=== PATIENT | male | born 1970 | race Caucasian/White ===

== ENCOUNTER 2024-07-21 09:18 | Emergency (ER) | payer OTHER, SELFPAY ==
[2024-07-21 09:40] VITALS: BP 146/86; PULSE 83; TEMP 36.9; O2SAT 96; BMI 42.8
--- NOTE | 2024-07-21 09:47 | ECG_ITS ---
[facility] Test Date: 2024-07-21 Pat Name: PETROS SANDOVAL Department: Room: - Gender: Male Bag Tester: : 1970 Requested By: [id number] Order Number: [id number] Reading MD: SARA MEDEL Measurements Intervals [place] Rate: 73 P: -67 NE: 142 QRS: -26 QRSD: 96 T: 50 QT: 372 QTc: 398 Interpretive Statements 1220 Rapid atrial rhythm 2440 Incomplete right bundle branch block 7202 Moderate left axis deviation 8102 Low QRS voltage in chest leads 9140 abnormal rhythm ECG Electronically Signed On 07-22-2024 7:01:33 EST by SARA MEDEL
--- NOTE | 2024-07-21 09:50 | CT_ITS ---
[address] [address] Patient Name: PETROS SANDOVAL MRN: [id number] date: 1970 Sex: M Assigned Patient Location: ER Current Patient Location: Accession/Order Number: [id number] Exam Date: 07/21/2024 10:00 Report Date: 07/21/2024 10:34 At the request of: NICHOLE LIMA Procedure: CT chest wo con EXAMINATION: CT chest wo con, CT abdomen pelvis wo con HISTORY: chest wall pain , right upper quadrant pain / tenderness COMPARISON: CT abdomen pelvis 11/30/2021 TECHNIQUE: Axial, Coronal, and Sagittal CT images were obtained without and/or with IV contrast as indicated by examination type. Dose reduction techniques were achieved by using automated exposure control and/or adjustment of mA and/or kV according to patient size and/or use of iterative reconstruction technique. FINDINGS: LUNGS: A few tiny pleural-based nodules, largest is within lateral right upper lobe near the minor fissure, 3 mm. No appreciable infiltrates or significant chronic interstitial changes. PLEURA: No mass or effusion. VASCULATURE: No visible pulmonary arterial thrombus or attenuation. YONATHAN: No mass or adenopathy. MEDIASTINUM: No mass or adenopathy. CARDIAC: No enlargement, pericardial thickening, or pericardial effusion. AORTA: No aneurysm or dissection.. CORONARY ARTERY CALCIFICATIONS: Coronary calcifications are mild. CHEST WALL: No mass or axillary adenopathy. LIVER: No enlargement, atrophy, abnormal density, or significant focal lesion. BILIARY: No dilatation or calcification. PANCREAS: No lesion, fluid collection, ductal dilatation, or atrophy. SPLEEN: No enlargement or focal lesion. ADRENALS: No mass or enlargement. KIDNEYS: No mass, obstruction, or calcification. BOWEL/MESENTERY: No visible mass, obstruction, or bowel wall thickening. Normal appendix. AORTA/VASCULAR: No aneurysm. RETROPERITONEUM: No mass or adenopathy. LYMPH NODES: No adenopathy. URINARY BLADDER: No visible focal wall thickening, lesion, or calculus. PELVIC ORGANS: No visible mass. Pelvic organs appropriate for patient age. ABDOMINAL WALL: No mass or hernia. BONES: No bony lesion or fracture. Multilevel mild degenerative changes of lumbar spine. OTHER: Negative. CT/CT chest wo con IMPRESSION: 1. No acute or suspicious findings within the chest, abdomen, and pelvis to account for patient's symptoms. 2. Degenerative changes of lumbar spine. Electronically authenticated by: ARNOLD BRICEÑO Date: 07/21/2024 10:34
--- NOTE | 2024-07-21 09:50 | CT_ITS ---
[address] [address] Patient Name: PETROS SANDOVAL MRN: [id number] date: 1970 Sex: M Assigned Patient Location: ER Current Patient Location: Accession/Order Number: [id number] Exam Date: 07/21/2024 10:00 Report Date: 07/21/2024 10:34 At the request of: NICHOLE LIMA Procedure: CT abdomen pelvis wo con EXAMINATION: CT chest wo con, CT abdomen pelvis wo con HISTORY: chest wall pain , right upper quadrant pain / tenderness COMPARISON: CT abdomen pelvis 11/30/2021 TECHNIQUE: Axial, Coronal, and Sagittal CT images were obtained without and/or with IV contrast as indicated by examination type. Dose reduction techniques were achieved by using automated exposure control and/or adjustment of mA and/or kV according to patient size and/or use of iterative reconstruction technique. FINDINGS: LUNGS: A few tiny pleural-based nodules, largest is within lateral right upper lobe near the minor fissure, 3 mm. No appreciable infiltrates or significant chronic interstitial changes. PLEURA: No mass or effusion. VASCULATURE: No visible pulmonary arterial thrombus or attenuation. YONATHAN: No mass or adenopathy. MEDIASTINUM: No mass or adenopathy. CARDIAC: No enlargement, pericardial thickening, or pericardial effusion. AORTA: No aneurysm or dissection.. CORONARY ARTERY CALCIFICATIONS: Coronary calcifications are mild. CHEST WALL: No mass or axillary adenopathy. LIVER: No enlargement, atrophy, abnormal density, or significant focal lesion. BILIARY: No dilatation or calcification. PANCREAS: No lesion, fluid collection, ductal dilatation, or atrophy. SPLEEN: No enlargement or focal lesion. ADRENALS: No mass or enlargement. KIDNEYS: No mass, obstruction, or calcification. BOWEL/MESENTERY: No visible mass, obstruction, or bowel wall thickening. Normal appendix. AORTA/VASCULAR: No aneurysm. RETROPERITONEUM: No mass or adenopathy. LYMPH NODES: No adenopathy. URINARY BLADDER: No visible focal wall thickening, lesion, or calculus. PELVIC ORGANS: No visible mass. Pelvic organs appropriate for patient age. ABDOMINAL WALL: No mass or hernia. BONES: No bony lesion or fracture. Multilevel mild degenerative changes of lumbar spine. OTHER: Negative. CT/CT abdomen pelvis wo con IMPRESSION: 1. No acute or suspicious findings within the chest, abdomen, and pelvis to account for patient's symptoms. 2. Degenerative changes of lumbar spine. Electronically authenticated by: ARNOLD BRICEÑO Date: 07/21/2024 10:34
[2024-07-21 10:25] LABS: Basophils Percent Auto 0.4 % (0.2-2.0); Eosinophils Absolute Auto 0.3 10^3/uL (0.0-0.7); Eosinophils Percent Auto 4.1 % (0.9-7.0); Hematocrit 40.5 % (42.0-54.0); Hemoglobin 14.1 g/dL (14.0-18.0); Immature Granulocytes Abs Auto 0.01 10^3/uL (0.00-0.03); Immature Granulocytes Pct Auto 0.1 % (0.0-0.5); Lymphocytes Absolute Auto 1.8 10^3/uL (1.2-3.8); Lymphocytes Percent Auto 25.4 % (20.5-60.0); Mean Corpuscular HGB Conc 34.8 g/dL (29.9-35.2); Mean Corpuscular Hemoglobin 30.9 pg (25.9-34.0); Mean Corpuscular Volume 88.6 fL (80.0-94.0); Mean Platelet Volume 10.3 fL (9.5-13.5); Monocytes Absolute Auto 0.5 10^3/uL (0.3-0.8); Monocytes Percent Auto 7.1 % (1.7-12.0); Neutrophils Absolute Auto 4.4 10^3/uL (1.4-6.5); Neutrophils Percent Auto 62.9 % (43.0-75.0); Platelet Count 247 10^3/uL (150-450); Red Blood Count 4.57 10^6/uL (4.70-6.10); Red Cell Distribution Width 11.8 % (11.0-15.0)
[2024-07-21 10:29] VITALS: BP 132/90; PULSE 80; O2SAT 96
--- NOTE | 2024-07-21 10:32 | ED.ABDPAIN1 ---
HPI - Abdominal Pain General Chief Complaint: Abdominal Pain Stated Complaint: DISCOMFORT ON RIGHT SIDE Time Seen by Provider: 07/21/24 09:47 History of Present Illness HPI narrative: Is coming to us with almost 8 days history of right upper quadrant pain or right chest wall pain ,he mentioned that this pain started almost 8 days ago with no exacerbating factors of fall or trauma. The patient have no fever but he have difficulty breathing whenever he take a deep breath it hurts. He mentioned the pain sometimes gets in certain position and on palpation, he is not able to lay on the right side decreased due to pain The patient also had decreased appetite and he denies any diarrhea or vomiting Related Data Home Medications ?Medication ?Instructions ?Recorded ?Confirmed fenofibrate 150 mg capsule 150 mg PO DAILY 07/21/24 07/21/24 lisinopril 5 mg tablet 5 mg PO DAILY 07/21/24 07/21/24 loratadine 10 mg tablet (Claritin) 10 mg PO DAILY 07/21/24 07/21/24 nortriptyline 25 mg capsule 25 mg PO DAILY 07/21/24 07/21/24 pregabalin 300 mg capsule 300 mg PO Q12H 07/21/24 07/21/24 Previous Rx's ?Medication ?Instructions ?Recorded diclofenac sodium 75 mg 75 mg PO BID PRN pain #14 tabs 07/21/24 tablet,delayed release Allergies Allergy/AdvReac Type Severity Reaction Status Date / Time azithromycin AdvReac Hives Verified 07/21/24 09:40 Review of Systems ROS Status of ROS 10 or more systems reviewed and unremarkable except as noted in history and below PFSH PFSH Social History Little interest or pleasure in doing things: not at all Feeling down, depressed, or hopeless: not at all Exam Narrative Exam Narrative: Nurses notes and vital signs reviewed and patient is not hypoxic. General: Well-appearing and in no apparent distress. Skin: Warm, dry, no pallor noted. No rash. Head: Normocephalic, atraumatic. Neck: Supple, non-tender. Eye: Pupils are equal, round and EOMI. No scleral icterus. Ears, Nose, Mouth, and Throat: TM are clear, no nasal mucosal hypertrophy. Oral mucosa is moist, no posterior oropharynx erythema, uvula is mid-line Cardiovascular: Regular Rate and Rhythm without murmur, gallop or rub. Respiratory: No accessory muscle use or respiratory distress. Lungs are clear to auscultation, no wheezing, rales or rhonchi Chest Wall: There is tenderness upon palpation of the right side of the chest wall Back: No midline thoracic or lumbar vertebral tenderness. No CVA tenderness Musculoskeletal: normal ROM, no calf or popliteal tenderness, no lower extremity edema/swelling GI: There is tenderness palpation on abdomen but mostly at the intervertebral line on the right side just below the rib cage Neurological: A&O x4. No cranial nerve dysfunction observed. No truncal ataxia. Moves all extremities. Sensation intact. Psychiatric: Cooperative and interactive. Normal mood and affect. Constitutional Vital Signs, click to edit/add: Last Vital Signs Temp 98.4 F 07/21/24 09:40 Pulse 80 07/21/24 10:29 Resp 20 07/21/24 10:29 BP 132/90 07/21/24 10:29 Pulse Ox 96 07/21/24 10:29 O2 Del Method Room Air 07/21/24 10:29 Course Vital Signs Vital signs: Vital Signs Temperature 98.4 F 07/21/24 09:40 Pulse Rate 83 07/21/24 09:40 Respiratory Rate 18 07/21/24 09:40 Blood Pressure 146/86 H 07/21/24 09:40 Pulse Oximetry 96 07/21/24 09:40 Oxygen Delivery Method Room Air 07/21/24 09:40 Temperature 98.4 F 07/21/24 09:40 Pulse Rate 80 07/21/24 10:29 Respiratory Rate 20 07/21/24 10:29 Blood Pressure 132/90 07/21/24 10:29 Pulse Oximetry 96 07/21/24 10:29 Oxygen Delivery Method Room Air 07/21/24 10:29 MDM - Abdominal Pain MDM Narrative Medical decision making narrative: The patient CBC and chemistry showed no acute pathology CT of the chest wall as well as the CT of the abdomen showed no acute pathology as initially the concern was due to possible hepatic involvement or upper abdominal involvement due to the fact that the patient have decreased appetite and he is pointing to his right chest wall and right upper although the tenderness was mostly toward the middle of the axillary line on the right side And with the patient significant pain he was provided with Toradol Patient discharged home with Voltaren The patient is to follow up with primary care physician in next 2-3 days or to return to the emergency department should any of the signs or symptoms worsen or new symptoms develop. The patient agrees with the following Diagnosis and Treatment plan and the patient will be discharged home. Lab Data Labs: Lab Results 07/21/24 Range/Units 10:20 WBC 7.0 (4.0-11.0) 10^3/uL RBC 4.57 L (4.70-6.10) 10^6/uL Hgb 14.1 (14.0-18.0) g/dL Hct 40.5 L (42.0-54.0) % MCV 88.6 (80.0-94.0) fL MCH 30.9 (25.9-34.0) pg MCHC 34.8 (29.9-35.2) g/dL RDW 11.8 (11.0-15.0) % Plt Count 247 (150-450) 10^3/uL MPV 10.3 (9.5-13.5) fL Neut % (Auto) 62.9 (43.0-75.0) % Lymph % (Auto) 25.4 (20.5-60.0) % [place] % (Auto) 7.1 (1.7-12.0) % Eos % (Auto) 4.1 (0.9-7.0) % Baso % (Auto) 0.4 (0.2-2.0) % Neut # (Auto) 4.4 (1.4-6.5) 10^3/uL Lymph # (Auto) 1.8 (1.2-3.8) 10^3/uL [place] # (Auto) 0.5 (0.3-0.8) 10^3/uL Eos # (Auto) 0.3 (0.0-0.7) 10^3/uL Baso # (Auto) 0.0 (0.0-0.1) 10^3/uL Abs Immat Gran (auto) 0.01 (0.00-0.03) 10^3/uL Imm/Tot Granulo (auto) 0.1 (0.0-0.5) % PT 10.5 (9.0-11.6) sec INR 0.99 Sodium 144 (136-145) mmol/L Potassium 3.9 (3.5-5.1) mmol/L Chloride 106 (98-107) mmol/L Carbon Dioxide 27.7 (21.0-32.0) mmol/L Anion Gap 14.2 BUN 12.0 (7.0-18.0) mg/dL Creatinine 0.71 (0.70-1.30) mg/dL Est GFR ( Amer) >60 (>=60 mL/min/1.73m^2) Est GFR (Non-Af Amer) >60 (>=60 mL/min/1.73m^2) BUN/Creatinine Ratio 16.9 Glucose 123 H (74-106) mg/dL Calcium 9.0 (8.5-10.1) mg/dL Total Bilirubin 0.5 (0.2-1.0) mg/dL AST 10 L (15-37) U/L ALT 20 (16-63) U/L Alkaline Phosphatase 55 (46-116) U/L Troponin I High Sens 6.6 (4.0-76.1) pg/mL Total Protein 6.7 (6.4-8.2) g/dL Albumin 3.8 (3.4-5.0) g/dL Globulin 2.9 g/dL Albumin/Globulin Ratio 1.3 Lipase 43.0 (16.0-77.0) U/L Discharge Plan Discharge Chief Complaint: Abdominal Pain Clinical Impression: Sprain of chest wall Patient Disposition: Home, Self-Care Time of Disposition Decision: 11:24 Condition: Good Prescriptions / Home Meds: New diclofenac sodium 75 mg tablet,delayed release (DR/EC) 75 mg PO BID PRN (Reason: pain) Qty: 14 0RF No Action nortriptyline 25 mg capsule 25 mg PO DAILY pregabalin 300 mg capsule 300 mg PO Q12H fenofibrate 150 mg capsule 150 mg PO DAILY lisinopril 5 mg tablet 5 mg PO DAILY loratadine [Claritin] 10 mg tablet 10 mg PO DAILY Print Language: Croatian Instructions: Chest Wall Pain (ED) Referrals: Physician,Non-Staff, MD [Primary Care Provider] - 1 week Discharge Date/Time: 07/21/24 11:31
[2024-07-21 10:40] LABS: INR 0.99; Prothrombin Time 10.5 sec (9.0-11.6)
[2024-07-21 10:50] LABS: Alanine Aminotransferase 20 U/L (16-63); Albumin Globulin Ratio 1.3; Albumin Level 3.8 g/dL (3.4-5.0); Alkaline Phosphatase 55 U/L (46-116); Anion Gap 14.2; Aspartate Amino Transferase 10 U/L (15-37); BUN Creatinine Ratio 16.9; Bilirubin Total 0.5 mg/dL (0.2-1.0); Carbon Dioxide 27.7 mmol/L (21.0-32.0); Chloride 106 mmol/L (98-107); Estimated GFR (African America >60 (>=60 mL/min/1.73m^2); Estimated GFR (Non-African Ame >60 (>=60 mL/min/1.73m^2); Globulin 2.9 g/dL; Glucose 123 mg/dL (74-106); Potassium 3.9 mmol/L (3.5-5.1); Sodium 144 mmol/L (136-145); Total Protein 6.7 g/dL (6.4-8.2); Troponin I High Sensitivity 6.6 pg/mL (4.0-76.1)
[2024-07-21] MEDS: KETOROLAC TROMETHAMINE 30 MG/ML VIAL IVP (10:58)
== END 2024-07-21 11:31 | disposition home or self-care (01) ==
PROVIDERS: Emergency Provider Emergency Medicine
DX: S23.8XXA Sprain of other specified parts of thorax, initial encounter (principal); X58.XXXA Exposure to other specified factors, initial encounter; R10.11 Right upper quadrant pain; R07.89 Other chest pain
CPT/HCPCS: 36415; 71250; 74176; 80053; 83690; 84484; 85025; 85610; 93005; 96374; 99285; J1885

== ENCOUNTER 2025-03-20 13:42 | Outpatient (OUT) | payer OTHER, SELFPAY ==
--- NOTE | 2025-03-20 15:08 | PM.CN ---
Consult Note: HPI Data of Consult Patient: new to practice Consult date: 03/20/25 Requesting Physician: Josse Campbell MD Primary Care Provider: Non-Staff Physician, Consult Narrative Reason for consult: low back, bilateral lower extremity pain Narrative: 54yom who presents for evaluation. longstanding history of low back, bilateral lower extremity pain >2 years. previous lumbar mri showed multilevel stenosis, worst at l5-s1. has previously seen a pain management clinic. has completed physical therapy and continues in weekly chiropractic therapy, though this has not made a substantial difference in his low back and leg pain. currently using tylenol, lyrica, diclofenac. denies adverse med side effects. cc:: CC: Josse Campbell MD Review of Systems ROS Status of ROS 10 or more systems reviewed and unremarkable except as noted in history and below PFSH PFSH Social History Little interest or pleasure in doing things: not at all Feeling down, depressed, or hopeless: not at all Meds Home Medications and Allergies Home Medications ?Medication ?Instructions ?Recorded ?Confirmed ?Type diclofenac sodium 75 mg 75 mg PO BID PRN pain #14 tabs 07/21/24 Rx tablet,delayed release fenofibrate 150 mg capsule 150 mg PO DAILY 07/21/24 07/21/24 History lisinopril 5 mg tablet 5 mg PO DAILY 07/21/24 07/21/24 History loratadine 10 mg tablet (Claritin) 10 mg PO DAILY 07/21/24 07/21/24 History nortriptyline 25 mg capsule 25 mg PO DAILY 07/21/24 07/21/24 History pregabalin 300 mg capsule 300 mg PO Q12H 07/21/24 07/21/24 History Allergies Allergy/AdvReac Type Severity Reaction Status Date / Time azithromycin AdvReac Hives Verified 07/21/24 09:40 Exam Narrative Exam Narrative: Psych-alert and oriented x 3. Attentive and appropriate, constitutionally normal, displays normal mood and affect per situation. There are no obvious deficits in memory, reasoning, or intellect.? Skin-no obvious rashes, bruising, erythema noted to the patient's area of pain.? Extremities- extremities are warm with minimal edema and palpable pulses. Lumbar-tenderness to palpation noted in the lumbar spine and paraspinal musculature. Pain is elicited with flexion, extension, and lateral rotation of the lumbar spine. Range of motion is diminished with these motions. Facet loading maneuvers are positive.? Strength-noted to be unremarkable with the exception of decreased strength rated at 4 out of 5 in bilateral quadriceps femoris, anterior tibialis. Sensory-no notable sensory deficits in the bilateral lower extremities to touch or pinprick in all dermatomal distributions with the exception to decreased sensation to the bilateral L4, 5 dermatomal distribution Coordination remains intact.? Gait remains non-antalgic. Assessment and Plan Assessment and Plan (1) Lumbar stenosis with neurogenic claudication: Plan 54yom who presents for assessment. failed conservative measures, as noted. given ongoing symptoms and failure to respond to conservative measures, would like to update lumbar mri without contrast. he is in agreement. meds reviewed, no changes. follow up after imaging.
== END 2025-03-20 13:43 | disposition home or self-care (01) ==
LOC: PM 13:43
PROVIDERS: Visit Provider Anesthesiology
DX: M48.062 Spinal stenosis, lumbar region with neurogenic claudication (principal)
CPT/HCPCS: G0463

== ENCOUNTER 2025-03-23 15:45 | Outpatient (OUT) | payer OTHER, SELFPAY ==
--- NOTE | 2025-03-23 | MR_ITS ---
[address] [address] Patient Name: PETROS SANDOVAL MRN: [id number] date: 1970 Sex: M Assigned Patient Location: MRI Current Patient Location: MRI Accession/Order Number: [id number] Exam Date: 03/23/2025 15:50 Report Date: 03/23/2025 23:49 At the request of: ANGELINE CASTANO MD Procedure: MR lumbar spine wo con MR lumbar spine wo con 03/23/2025 4:25 PM SIGNS AND SYMPTOMS: Chronic low back pain with radiculopathy radiating into lower extremities PROTOCOL: Multiplanar multisequence MR images of the lumbar spine without IV contrast COMPARISON: 02/06/2023 FINDINGS: The bones of the lumbar spine are in anatomic alignment. There is preservation of vertebral body heights. There is mild disc height loss at L1-L2, L2-L3, L3-L4, and L4-5. There is moderate disc height loss at L5-S1. Modic type I endplate edema is noted at L2-L3, L4-5, and L5-S1. Modic type II fatty endplate degenerative changes are noted at L3-L4. The conus terminates at the mid L1 vertebral body level. No epidural or paraspinous fluid collection is appreciated. At T12-L1: There is a normal disc, central canal, and neural foramen. At L1-L2: Facet hypertrophy is present with small bilateral facet effusions. There is no significant spinal canal or neural foraminal narrowing. At L2-L3: There is a circumferential disc bulge with facet hypertrophy. There is mild spinal canal stenosis and mild bilateral neural foraminal narrowing. At L3-L4: There is a circumferential disc bulge with facet hypertrophy. There is mild spinal canal stenosis with mild to moderate left and mild right neural foraminal narrowing. At L4-L5: There is a broad-based disc bulge with facet hypertrophy. There is mild spinal canal stenosis with mild right and moderate left neural foraminal narrowing. At L5-S1: There is a circumferential disc bulge with facet hypertrophy. There is mild spinal canal narrowing with moderate left and severe right neural foraminal narrowing. There is mass effect on the exiting right L5 nerve roots. MR/MR lumbar spine wo con IMPRESSION: At L5-S1: There is a circumferential disc bulge with facet hypertrophy. There is mild spinal canal narrowing with moderate left and severe right neural foraminal narrowing. There is mass effect on the exiting right L5 nerve roots. This is worse when compared to the prior exam. Additional but lesser degrees of degenerative changes are noted as above. Impression dictated by: Srini Melissa M.D. 03/23/2025 11:49 PM Dictation Location: [place] [address] Electronically authenticated by: [id number] Y Date: 03/23/2025 23:49
--- OUTSIDE RECORDS SUMMARY | 2025-03-23 15:48 | XMS_ITS | Encounter Summary ---
Author Organization [facility] Address [address] [facility] [place] [address] Care Team Providers Care Etl Analyst Developer Name Role Phone Nestor Jama DO Primary Care Provider [phone] Encounter Details Date Type Department Care Team (Late Contact Info) Description 05/21/2023 Abstract [facility] [id number] [place] [address] [place] [address] [phone] Mook Cagle MD [address] [place] [address] [place] [address] [phone] Social History Tobacco Use Types Packs/Day Years Used Date Smoking Tobacco: Never Smokeless Tobacco: Never Alcohol Use Standard Drinks/Week Comments Not Currently 0 (1 standard drink = 0.6 oz pur e alcohol) Sex and Gender Information Value Date Recorded Sex Assigned at Male 06/15/2023 9:42 AM EST Legal Sex Male 7:25 PM EDT Gender Identity Male 06/15/2023 9:42 AM EST Sexual Orientation Not on file documented as of this encounter Plan of Treatment Upcoming Encounters Date Type Department Care Team (Late Contact Info) Description 04/21/2025 11:40 AM EDT Office Visit [facility] [address] [facility] [address] [facility] [address] [place] [phone] Mook Cagle MD [address] [address] [place] [address] [place] [address] [phone] documented as of this encounter Visit Diagnoses Not on filedocumented in this encounter Care Teams Etl Analyst Developer Relationship Specialty Start Date End Date Nestor Jama DO PCP - General Family Medicine 02/27/23 documented as of this encounter
--- OUTSIDE RECORDS SUMMARY | 2025-03-23 15:48 | XMS_ITS | Clinical Summary ---
Author Organization [facility] Healthcare Address [address] [place] [address] Care Team Providers Care Decontamination Worker Name Role Phone Nestor Jama Primary Care Provider [phone] Allergies Active Allergy Reactions Criticality Noted Date Comments Erythromycin 06/14/2020 Other Reaction(s): rash Erythromycin Base 02/06/2023 Other Reaction(s): Hives Medications albuterol HFA 90 mcg/act inhaler Inhale 2 puffs every 6 (six) hours if needed. Active lisinopril 5 MG tablet Take 5 mg by mouth. 2 Active loratadine (Claritin) 10 MG tablet Take 10 mg by mouth in the morning. Active fenofibrate (Tricor) 145 MG tablet Take 145 mg by mouth in the morning. Active diclofenac (Voltaren) 75 MG EC tablet Take 75 mg by mouth in the morning and 75 mg before bedtime. Do not crush, chew, or split. . Active Multiple Vitamins-Minera ls (multivitamin with iron-minerals) liquid Take by mouth Daily. Active Calcium Carb-Cholecalci ferol (CALCIUM+D3 PO) Take by mouth 2 (two) times a day. Active penicillin v potassium (Veetid) 500 MG tablet TAKE 1 TABLET BY MOUTH 1 HOUR PRIOR TO PROCEDURE then ONE TABLET EVERY 6 HOURS UNTIL GONE 4 Active HYDROcodone-rosemarie taminophen ([place]) 5-325 MG tablet Take 1 tablet by mouth every 6 (six) hours if needed 4 Active chlorhexidine (Peridex) 0.12 % solution rinse WITH ONE-HALF OUNCE, hold 60 seconds and then let fall out OF mouth EVERY 8 HOURS for 14 days start using the day after procedure 4 Active meloxicam (Mobic) 15 MG tabletIndicatio ns:Osteoarthrit is of spine with radiculopathy, lumbar region Take 1 tablet (15 mg) by mouth Daily 30 tablet 11 5 02/14/20 26 Active nortriptyline (Pamelor) 50 MG capsuleIndicati ons:Osteoarthri tis of spine with radiculopathy, lumbar region Take 2 capsules (100 mg) by mouth at bedtime 60 capsule 2 5 05/14/20 25 Active tiZANidine (Zanaflex) 4 MG tabletIndicatio ns:Osteoarthrit is of spine with radiculopathy, lumbar region Take 1 tablet (4 mg) by mouth at bedtime 30 tablet 11 5 02/14/20 26 Active pregabalin (Lyrica) 300 MG capsuleIndicati ons:Meralgia paraesthetica, left Take 1 capsule (300 mg) by mouth in the morning and 1 capsule (300 mg) before bedtime. 180 capsule 1 5 08/12/19 26 Active Active Problems Problem Noted Date Diagnosed Date Pain in unspecified knee 10/24/2024 Adjustment disorder with depressed mood 06/15/20 23 Exposure to potentially hazardous substance 05/28 Enthesitis 06/15/2023 Morbid obesity 06/15/2023 Myopia 06/15/2023 Presbyopia 06/15/2023 Vitamin D deficiency 06/15/2023 Lumbosacral radiculopathy at L5 03/18/2023 Lateral femoral cutaneous neuropathy, left 03/18 Meralgia paraesthetica, left 02/27/2023 Allergic rhinitis, seasonal 02/25/2023 Sleep apnea 02/25/2023 Overview (02/25/2023): hasn't wore cpap in a couple of years Asthma 02/25/2023 Hearing deficit 02/25/2023 High cholesterol 02/25/2023 Hypertension 02/25/2023 Osteoarthritis 02/25/2023 Chest pain 06/14/2020 Encounters Date Type Department Care Team Description 02/13/2025 10:30 AM EDT Office Visit [facility] [address] [place] [address] Chayo Lance NP Osteoarthritis of spine with radiculopathy, lumbar region (Primary Dx); Meralgia paraesthetica, left 02/13/2025 Bamboo flowsheet [facility] [id number] [facility] [address] Chayo Lance NP 02/13/2025 Travel from Last 3 Months Family History Medical History Relation Name Comments Heart failure Father Heart failure Mother Relation Name Status Comments Father Mother Alive Social History Tobacco Use Types Packs/Day Years [...] AM EST Sexual Orientation Not on file Last Filed Vital Signs Vital Sign Reading Time Taken Comments Blood Pressure 142/80 02/13/2025 10:40 AM EDT Pulse 77 02/27/2023 8:23 AM EDT Temperature - - Respiratory Rate - - Oxygen Saturation - - Inhaled Oxygen Concentration - - Weight 121 kg (265 lb 11.2 oz) 02/13/2025 10:40 AM EDT Height 167.6 cm (5' 6 ) 02/13/2025 10:40 AM EDT Body Mass Index 42.89 02/13/2025 10:40 AM EDT Plan of Treatment Upcoming Encounters Date Type Department Care Team (Late st Contact Info) Description 04/21/2025 11:40 AM EDT Office Visit [facility] [address] [facility] [address] [place] [address] Mook Cagle MD [address] [place] [address] [place] [id number] Insurance Care Teams Decontamination Worker Relationship Specialty Start Date End Date Nestor Jama DO PCP - General Family Medicine 02/27/23
--- OUTSIDE RECORDS SUMMARY | 2025-03-23 15:48 | XMS_ITS | Encounter Summary ---
Author Organization [facility] Address [address] [facility] [place] [address] Care Team Providers Care Oil Mixer Name Role Phone Nestor Jama DO Primary Care Provider [phone] Encounter Details Date Type Department Care Team (Late Contact Info) Description 04/20/2023 Abstract [facility] [address] [place] [address] [place] [phone] Mook Cagle MD [address] [place] [address] [place] [address] [phone] Social History Tobacco Use Types Packs/Day Years [...] Office Visit [facility] [address] [facility] [address] [place] [phone] Mook Cagle MD [address] [place] [address] [place] [address] [phone] documented as of this encounter Visit Diagnoses Not on filedocumented in this encounter Care Teams Oil Mixer Relationship Specialty Start Date End Date Nestor Jama DO PCP - General Family Medicine 02/27/23 documented as of this encounter
--- OUTSIDE RECORDS SUMMARY | 2025-03-23 15:48 | XMS_ITS | Clinical Summary ---
Author Organization [facility] Address [address] [place] [address] Phone Care Team Providers Care Agricultural Appraiser Name Role Phone Unavailable Primary Care Provider Unavailabl e Social History Tobacco Use Types Packs/Day Years Used Date Smoking Tobacco: Never Assessed Sex and Gender Information Value Date Recorded Sex Assigned at Not on file Legal Sex Male 4:38 PM EST Gender Identity Not on file Sexual Orientation Not on file Plan of Treatment Not on file
--- OUTSIDE RECORDS SUMMARY | 2025-03-23 15:48 | XMS_ITS | Clinical Summary ---
Author Organization [facility] [id number] [address] [place] [address] Care Team Providers Care Hospital Tray Service Worker Name Role Phone DejonNestor thomas Nona HYDE Primary Care Provider [phone] Allergies Active Allergy Reactions Criticality Noted Date Comments Erythromycin 06/14/2020 Medications albuterol (PROVENTIL HFA;VENTOLIN HFA) 90 mcg/actuation inhaler Inhale 2 puffs every 6 (six) hours as needed for wheezing. Active loratadine (CLARITIN) 10 mg tablet Take 10 mg by mouth daily. Patient states he takes it a couple times a week Active fenofibrate micronized (LOFIBRA) 134 mg capsule Take 1 capsule (134 mg total) by mouth daily with breakfast. 30 capsule 2020 Active lisinopriL (PRINIVIL,ZESTR IL) 5 mg tablet Take 1 tablet (5 mg total) by mouth daily. 30 tablet 2020 Active Active Problems Problem Noted Date Diagnosed Date Chest pain 06/14/2020 Family History Medical History Relation Name Comments Heart disease Father Depression Mother Relation Name Status Comments Father Mother Social History Tobacco Use Types Packs/Day Years Used Date Smoking Tobacco: Former Smokeless Tobacco: Former Alcohol Use Standard Drinks/Week Comments Yes 0 (1 standard drink = 0.6 oz pur e alcohol) Social Connection and Isolat ion Panel [NHANES] Answer Date Recorded In a typical week, how many times do you talk on the phone with family, friends, or neighbors? More than three times a week 06/14/2020 How often do you get togethe r with friends or relatives? Once a week 06/14/2020 How often do you attend chur or mandaeism services? Patient declined 06/14/2020 Do you belong to any clubs o r organizations such as yarsani groups, unions, fraternal or athletic groups, or school groups? Yes 06/14/2020 How often do you attend meet ings of the clubs or organizations you belong to? Never 06/14/2020 Are you , , di vorced, , never , or living with a partner? 06/14/2020 AUDIT-C Answer Date Recorded Q1: How often do you have a drink containing alc ohol? 2-4 times a month 06/14/2020 Q2: How many drinks containi ng alcohol do you have on a typical day when you are drinking? 1 or 2 06/14/2020 Q3: How often do you have si x or more drinks on one occasion? Never 06/14/2020 Overall Financial Resource Strain (CARDIA) Answe r Date Recorded How hard is it for you to pa y for the very basics like food, housing, medical care, and heating? Not very hard 06/14/2020 PHQ-2 Answer Date Recorded Total Score 0 06/14/2020 [facility] [place] [facility] Occupat ional Health - Occupational Stress Questionnaire Answer Date Recorded Do you feel stress - tense, restless, nervous, or anxious, or unable to sleep at night because your mind is troubled all the time - these days? Not at all 06/14/2020 Exercise Vital Sign Answer Date Recorde d On average, how many days pe r week do you engage in moderate to strenuous exercise (like a brisk walk)? 2 days 06/14/2020 On average, how many minutes do you engage in exercise at this level? 20 min 06/14/2020 PRAPARE - Transportation Answer Date Re corded In the past 12 months, has l ack of transportation kept you from medical appointments or from getting medications? No 05/27 In the past 12 months, has l ack of transportation kept you from meetings, work, or from getting things needed for daily living? No 06/14/2020 Childcare Answer Date Recorded Do problems getting child ca re make it difficult for you to work or study? No 06/14/2020 Employment Answer Date Recorded Do you need help finding a [employer] career [facility] and/or a training program? No 06/14/2020 Purpose - Life Answer Date Recorded Purpose and direction in life Unknown Sex and Gender Information Value Date Recorded Sex Assigned at Not on file Legal Sex Male 11:25 AM EDT Gender Identity Not on file Sexual Orientation Not on file Last Filed Vital Signs Vital Sign Reading Time Taken Comments Blood Pressure 136/94 06/15/2020 3:41 PM EST Pulse 81 06/15/2020 3:41 PM EST Temperature 36.9 C (98.5 F) 06/15/2020 3:41 PM EST Respiratory Rate 16 06/15/2020 3:41 PM EST Oxygen Saturation 95% 06/15/2020 3:41 PM EST Inhaled Oxygen Concentration - - Weight 120.2 kg (265 lb) 06/14/2020 8:30 PM EST Height 165.1 cm (5' 5 ) 06/14/2020 8:30 PM EST Body Mass Index 44.1 06/14/2020 8:30 PM EST Plan of Treatment Health Maintenance Due Date Last Done Comments Depression Screening 1981 Tobacco Screening 1981 Adult BMI Screening 1987 DTaP,Tdap and Td Vaccines (1 - Tdap) 1988 Zoster (Shingles) Vaccine (1 of 2) 2019 Influenza Vaccine 03/27/2025 Medical Devices Not on file Insurance Advance Directives * Full Code (Latest Code Status on File) Date Activated Date Inactivated Comments 06/15/2020 7:51 AM 06/15/2020 6:40 PM Care Teams Hospital Tray Service Worker Relationship Specialty Start Date End Date Nestor Jama DO [address] [place] [address] PCP - General Family Medicine 06/14/20
== END 2025-03-23 15:46 | disposition home or self-care (01) ==
LOC: MRI 15:45
PROVIDERS: PCP Family Medicine; Visit Provider Anesthesiology
DX: M48.062 Spinal stenosis, lumbar region with neurogenic claudication (principal); M51.369 Other intervertebral disc degeneration, lumbar region without mention of lumbar back pain or lower extremity pain
CPT/HCPCS: 72148

== ENCOUNTER 2025-07-03 10:39 | Emergency (ER) | payer OTHER, SELFPAY ==
--- OUTSIDE RECORDS SUMMARY | 2025-07-03 05:25 | XMS_ITS | Continuity of Care Document ---
Author Organization [facility] Address [address] [place] [address] Phone Care Team Providers Care Blueprint Reader Name Role Phone Nestor Jama DO Primary Care Provider Rachna Eldridge APRN Attending Provider Gini Sanchez APRN Attending Provider NON STAFF Primary Care Provider Unavailabl e Care Teams Patient Care Team Team Status: Active Member Role/Relationship Status Dates NON STAFF Primary Care Provider Active Visit Care Team Team Status: Inactive Member Role/Relationship Status Dates Nestor Jama DO Primary Care Provider Active Sta rt: June 26, 2025 End: June 26, 2025Parima Eldridge APRN SUCTION WORKER-CAttending Provider ActiveStart: June 26, 2025 End: June 26, 2025 Visit Care Team Team Status: Inactive Member Role/Relationship Status Dates ERICA Molina RN SUCTION WORKER-C Attending Provider Active Start: June 26, 2025 End: June 26, 2025 Patient Care Team Team Status: Inactive Member Role/Relationship Status Dates Gini Sanchez APRN Attending Provider Active S tart: July 03, 2025 End: July 03, 2025NON STAFFPrimary Care ProviderActiveStart: July 03, 2025 End: July 03, 2025 Chief Complaint and Reason for Visit Chief Complaint Admit Date Left hand middle finger swelling, rednes s June 26, 2025 4:06pm left hand infection July 03, 2025 9 :17am Reason for Visit Admit Date Abscess of finger of left hand June 26, 2025 4:06pm Allergies, Adverse Reactions, Alerts Allergen Type Severity Reaction Last Updated Verified Status erythromycin base Allergy Unknown Hives July 03, 2025 9:3 3am Yes Active Social History Smoking Status Status Start Date End Date Date of Observa tion Never smoked tobacco (finding) March 05, 2018 2:04pm Observation Status Observation Response Date of Response Legal Sex [facility] (finding) [facility] 1969 Family History Relationship Condition Age at Onset Recorded Date/T khushi father Family history of colon cancer Unknown Malignant neoplasmUnknownDeceasedUnknown Problems Active Problems Problem Diagnosis/Recorded Date Onset Date Stat Family history of colon cancer July 25, 2024 1:3 7pm Unknown Active Influenza A September 19, 2024 11:06am Unknown Active Hypertriglyceridemia July 25, 2024 1:37pm Unknow n Active Indigestion July 25, 2024 1:37pm Unknown A ctive Seasonal allergies July 25, 2024 1:37pm Unknown Active Hyperglycemia July 25, 2024 1:37pm Unknown Active Hyperlipidemia July 25, 2024 1:37pm Unknown Active Degenerative lumbar disc July 25, 2024 1:37pm Un known Active Anxiety and depression July 25, 2024 1:37pm Unkn own Active Right flank pain July 26, 2024 9:13am Unknown Active Right-sided chest wall pain July 26, 2024 9:19am Unknown Active Hypertension July 25, 2024 1:37pm Unknown A ctive Vitamin D deficiency July 25, 2024 1:37pm Unknow n Active Obesity July 25, 2024 1:37pm Unknown A ctive Asthma July 25, 2024 1:37pm Unknown A ctive Medications Medication Status Dose Units Route Directions Qty Days Refills S tart Date Stop Date End Date Reason(s) Instructions Adherence Ipratropium-Albuterol 0.5 mg -3 mg(2.5 mg base)/3 mL solution for nebulization Active 0 .ROUTE.NWVAVDL9040Bcsdnlsr 2024 12:04pmInfluenza due to influenza virus, type A, humanINHALE 3ml via NEBULIZER EVERY 4 TO 6 HOURS NEEDED for SHORTNESS OF BREATH and FOR WHEEZINGComplies with drug therapyFenofibrate Micronized 134 mg rvmcujgLorvkyilytye3DOEXXGqvmcGrmbyyge 30th, 2024 12:00amJuly 26, 2024 9:39amFreeTextSi capsule with a meal Orally Once a day; Note: Source Status: Taking; Provider: Wiley Baez RLisinopril 5 mg mwlltqRknxjmyjpysr8FFPROWjmbr July 25, 2024 12:00amDe2023 9:39amFreeTextSi tablet Orally Once a day; Note: Source Status: Taking; Refills: 1; Qty: 90 Tablet; Pr ovider: Wiley Baez RAlbuterol Sulfate 90 mcg/actuation HFA aerosol inhalerActive INHALATIONJuly 25, 2024 12:00amFreeTextSi puff Inhalation every 4 hrs prn; Note: Source Status: Taking; Refills: 3; Provider: Damaris Reich ( )Complies with drug therapyNortriptyline 25 mg odxufgrMrqxos39UDDD Daily at bedtimeJuly 26, 2024 12:00amComplies with drug therapyLoratadine (Allergy Relief (Loratadine)) 10 mg koetmtFciupm40AURBAxfynIywontux 31st, 2024 12:00amComplies with drug therapyPregabalin (Lyrica) 300 mg xytvnedGchblu012QXUB Twice dailyJuly 26, 2024 12:00amComplies with drug therapyFenofibrate Micronized 134 mg zowudusOmbepu268UXDUQatplVurfavkg 31st, 2024 9:39amComplies with drug therapyLisinopril 5 mg jbvjhhRajsvyzeeylp5OVJYAukjzImgtadug 31st, 2024 9:39amJune 26, 2025 4:21pmOseltamivir (Tamiflu) 75 mg acqmrsbXhroskgashmk18 MGPOTwice xjlcc1866Rsbfzqao2024 12:00amDemb2024 4:09pm Ondansetron 4 mg tablet,ftvlenqjfsnvriSuvdyclvkzpl6KAIWFhhot 8 hours as needed for nausea and pnsmhahm532Jrmjhmwd2024 12:00amDe2024 4:09pm Prednisone 20 mg stfkiqEdnywncbnneo45GHNPNctjo1028Jvdolzya 2024 12:00am June 26, 2025 4:09pmIpratropium-Albuterol 0.5 mg-3 mg(2.5 mg base)/3 mL solution for mhbjxrfgmkrnCokabeamgyct2GIDKWYBQKTAJXFGRF 4-6 HOURS as needed for shortness of breath or civoesjx377Lvemxkjr 2024 12:00amFebruary 2024 12:04pmInfluenza due to influenza virus, type A, humanTizanidine 4 mg tablet Lvpvlz2EIIEMroii at bedtimeJune 26, 2025 12:00amComplies with drug therapy Sulfamethoxazole-Trimethoprim (Bactrim Ds) 800-160 mg atwtswUplqpp0MGTESZqvyq 12 siabn790MhnudvtiJune 26, 2025 12:00amComplies with drug therapy Procedures Procedure Date Performed Status Superficial Wound Culture June 26, 2025 com pleted Relevant Diagnostic Tests and/or Laboratory Data Microbiology Results Procedure Source Result Collection Date/Time Result Date/Time Result Comment Performing Site Superficial Wound Culture Finger,Left Middle, Abscess Staphylococcus aureus June 26, 2025 5:00pm June 29, 2025 10:28am [facility] [id number] [address] [place] [id number] Vital Signs Vital Reading Result Reference Range Collection Date/Time Height 66 [in_i] June 26, 2025 4:91iwBbrptx498.01 kgJune 26, 2025 4:14pmBody Kthampdtwvv20.5 [degF]97.6-99.0June 26, 2025 4:14pmHeart Wuyq617 /wlt57-017 June 26, 2025 4:14pmRespiratory rate18 /lta76-82SjxbsjfbJune 26, 2025 4:14pm Oxygen saturation by Pulse nejkguwd02 %95-100June 26, 2025 4:14pmBP Govwahcr150 mm[Hg]100-140June 26, 2025 4:14pmBP Wfectvvzv93 mm[Hg]60-100 June 26, 2025 4:14pmBMI (Body Mass Index)43.4 kg/s7YkkplhlwJune 26, 2025 4:56akBddftt70 [in_i]July 03, 2025 9:04llHqrpvo052.01 kgJuly 03, 2025 9:36amBody Isimxlmvvoy40.9 [degF]97.6-99.0ce2024 9:36amHeart Rate76 /nmg08-775VjscpydkJuly 03, 2025 9:36amRespiratory rate18 /fjo83-07YspispunJuly 03, 2025 9:36amOxygen saturation by Pulse ndefwnie41 %95-100July 03, 2025 9:36amBP Bokylwmr671 mm[Hg]100-140July 03, 2025 9:36amBP Irftiuxdc78 mm[Hg] 60-100Decemb2024 9:36amBMI (Body Mass Index)43.4 kg/g3OfxfmsuoJuly 03, 2025 9:36am Advance Directives Advance Directive Response Recorded Date/ Time Advance Directives No December 14 7:31am Insurance Providers Guarantor Henrry Gonzalez Address [address] [place] [address]Mugezma Info.Home Phone: Coverage Status Update:2024 Payer Group Member ID Coverage Type Subscriber Relationship to Subscriber Effective Date Expiration Date [facility] [employer] [id number] [address] [place] Id: [id number] [address] [place] [address] Home Phone: Email: [email or web address] Encounters Encounter Location(s) Arrival/Admit Date Discharge/Departure Date Discharge/Departure Disposition Provider(s) Departed Physician/ Provider Office Visit -[facility] June 26, 2025 4:06pm June 26, 2025 5:02pm Discharged to home care or self care (routine discharge) Rachna Eldridge APRN Departed Referred -[facility] June 26, 2025 5:00pm June 26, 2025 5:01pm Discharged to home care or self care (routine discharge) Rachna Eldridge APRN Departed Physician/ Provider Office Visit -[facility] [place] July 03, 2025 9:17am July 03, 2025 10:21am Discharged to home care or self care (routine discharge) Evelin Nunez APRN Recent Diagnosis Onset Date Admit Date Abscess of finger of left hand Unknown D ecember 2024 4:06pm Assessments Diagnosis Onset Date Resolution Status Admit Date Abscess of finger of left [facility] 20[facility] 4:06pm Plan of Treatment Author Rachna Eldridge [facility] 20[facility] 6:36pmUsing the bevel of an 18 gauge needle, small puncture made in center of abscess. Large amount of purulent drainage expressed from abscess. Wound dressed with xeroform dressing, telfa pad, and wrapped with coban. Start bactrim as ordered. Advised to use warm, moist compresses to area 4-5x a day for at least 15 minutes. Future Tests Future scheduled test information is unavailable Pending Tests Pending diagnostic test information is unavailable Future Visits Future appointment information is unavailable Future Procedures Future procedure information is unavailable Future Medications Future medication information is unavailable Patient Instructions Patient instructions are unavailable
[2025-07-03 10:42] VITALS: BP 154/97; PULSE 76; TEMP 36.6; O2SAT 97; BMI 42.0
--- NOTE | 2025-07-03 11:11 | XR_ITS ---
The [address] [address] Patient Name: PETROS SANDOVAL MRN: [id number] date: 1970 Sex: M Assigned Patient Location: ER Current Patient Location: ED.MAIN Accession/Order Number: [id number] Exam Date: 07/03/2025 11:22 Report Date: 07/03/2025 11:39 At the request of: NICHOLE LIMA MD Procedure: XR finger LT min 2V LEFT FOURTH FINGER - 3 views COMPARISON: None CLINICAL DATA: Erythema and lump at the middle finger for the past 2 weeks. No injury. AP, lateral and oblique views were obtained. No fracture, dislocation or bony destruction is noted. There is mild soft tissue swelling at the base of the finger that extends over the dorsum of the hand. No radiopaque foreign bodies or subcutaneous air are noted. XR/XR finger LT min 2V IMPRESSION: NO ACUTE BONY FINDINGS Impression dictated by: Karmen Castillo M.D. 07/03/2025 11:39 AM Dictation Location: [place] [address] Electronically authenticated by: [id number] Y Date: 07/03/2025 11:39
--- OUTSIDE RECORDS SUMMARY | 2025-07-03 11:21 | XMS_ITS | CCD ---
Author Organization [facility] Care Team Providers Care Auger Machine Offbearer Name Role Phone MIGUEL BUCK Unavailable Unavailable MIGUEL BUCK Unavailable Unavailable CHRISTAL, DR EDITH Weldon Attending Unavailjean claude SIEGEL, DR EDITH Weldon Admitting Unavailabl e CHRISTAL, DR EDITH Weldon Consulting Unavailjean claude BUCK, DR RIVERA Primary Care Unavailable MELQUIADES GOLDMAN Consulting Unavailable Luis Morgan Consulting Unavailable CHRISTAL, DR EDITH Weldon Attending Unavailjean claude SIEGEL, DR EDITH Weldon Admitting Unavailjean claude e CHRISTAL, DR EDITH Weldon Consulting Unavailjean claude BUCK, DR RIVERA Primary Care Unavailable Corinne Song Consulting Unavailable CORINNE BORWN JR Attending Unavailable CORINNE BROWN JR Admitting Unavailable HEBER, DR RIVERA Primary Care Unavailable KEYANNA, DR RANOLD Castellano Consulting Unavailable CORINNE BROWN JR Consulting Unavailable CHRISTAL, DR EDITH Weldon Attending Unavailabl e CHRISTAL, DR EDITH Weldon Admitting Unavailabl e HEBER, DR RIVERA Primary Care Unavailable CHRISTAL, DR EDITH Weldon Consulting Unavailjean claude BRICEÑO, DR ARNOLD Castellano Consulting Unavailable Miguel Buck Unavailable Phil Schultz Unavailable Corinne Brown Unavailable Landry Beyer Unavailable MIGUEL BUCK Primary Care Physician Gini Galindo Admitting Unavailable MIGUEL BUCK Referring Unavailable Gini Galindo Attending Unavailable RACHANA OCAMPO Referring Unavailable Gini Galindo Admitting Unavailable Gini Galindo Attending Unavailable Aubrey Ruiz Attending Unavailable Aubrey Ruiz Referring Unavailable Aubrey Ruiz Admitting Unavailable Gini Galindo Admitting Unavailable KUNS, MIGUEL Referring Unavailable Gini Galindo Attending Unavailable Gini aGlindo Admitting Unavailable MIGUEL BUCK Referring Unavailable Gini Galindo Attending Unavailable Rachana Ocampo Unavailable Kuns, DO Miguel Primary Care Provider MD Rachana Ocampo Attending Provider [phone] Kuns DO, Miguel Primary Care Provider [phone] Kuns DO, Miguel Attending Provider Kuns, Miguel Attending Unavailable Kuns, Miguel Primary Care Unavailable Kuns, Miguel Admitting Unavailable Kuns DO, Miguel R Primary Care Provider ANAIS CAGLE Attending Unavailable HUBER LANCE Attending Unavailable Shannan ROMAN, Josse Sims Attending Unavailable Allergies Allergy ClassificationReported Allergen(s)Allergy TypeDate of OnsetReaction(s) Facility (9 sources)ErythromycinDrug Helhtcr08-40-6306OqcwpJkd [facility] Repository (20 sources)Erythromycin; Translations: [erythromycin]Drug Qhumunn42-42-1043 Unknown, [facility] (20 sources)Seasonal allergyPropensity to adverse reactionsSt. [facility] [place] Other (1 source)ErythromycinDrug Clijbtw49-75-3002TwvscwiyjKing'S Daughters [facility] [place] Repository Medications Current Medications MedicationDrug Class(es)DatesSig (Normalized)Sig (Original)acetaminophen 500 mg oral tablet (5 sources)Start: 74-07-8367lvcd 2 tablets by mouth every six hours as needed for painTylenol 500 mg Tab 1,000 mg = 2 tab(s), Oral, q6hr, PRN as needed for pain, Refills(s) 0 Start Date: 04/01/16 Status: Orderedacetaminophen 325 mg / HYDROcodone bitartrate 5 mg oral tablet (11 sources)Opioid AgonistStart: 86-05-5666vmro 1 tablet by mouth every six hours as neededHYDROcodone-acetaminophen ([place]) 5-325 MG tablet Take 1 tablet by mouth every 6 (six) hours if needed 09/07/2023 ActiveStart: 04-02-2016 acetaminophen-hydrocodone 325 mg-5 mg oral tablet 1 tab(s), Oral, q4hr Pain, 30 tab(s), Refill(s) 0Start Date: 04/02/16 Status: Pgpecsaieu193712 200 actuat albuterol 0.09 mg/actuat metered dose inhaler (9 sources)beta2-Adrenergic AgonistStart: 16-78-6935ojwn 1 puff(s) by inhalation every four hours as neededAlbuterol Sulfate 90 mcg/actuation HFA aerosol inhaler Active INHALATION July 25, 2024 12:00am FreeTextSi puff Inhalation every 4 hrs prn; Note: Source Status: Taking; Refills: 3; Provider: Damaris Reich ( )take 2 puff(s) by inhalation every six hours albuterol HFA 90 mcg/act inhaler Inhale 2 puffs every 6 (six) hours if needed. Activealbuterol 0.833 mg/ml / ipratropium bromide 0.167 mg/ml inhalation solution (1 source)Anticholinergic, beta2-Adrenergic AgonistStart: 52-82-8348pbks 1 mL by inhalation every four to six hours as needed for wheezingIpratropium-Albuterol 0.5 mg-3 mg(2.5 mg base)/3 mL solution for nebulization Active 3 ML INHALATION EVERY 4-6 HOURS as needed for shortness of breath or wheezing September 19, 2024 12:00amAlbuterol 90 MCG/ACT (20 sources)take 1 puff(s) by inhalation every four hours as neededAlbuterol 90 MCG/ACT 1 puff Inhalation every 4 hrs prn Activebaclofen 10 mg oral tablet (14 sources)gamma-Aminobutyric Acid-ergic AgonistStart: 22-80-5523cvwm 1 tablet by mouth every twelve hoursBaclofen 10 MG 1 tablet as needed Orally Twice a day for 30 days Oct, ActiveCalcium Carb-Cholecalciferol (CALCIUM+D3 PO) (7 sources)Calcium Carb-Cholecalciferol (CALCIUM+D3 PO) Take by mouth 2 (two) times a day. Activecetirizine hydrochloride 10 mg oral tablet (5 sources)Histamine-1 Receptor Antagonisttake 1 tablet by mouth once daily Cetirizine HCl 10 MG 1 tablet Orally Once a day Activechlorhexidine gluconate 1.2 mg/ml mouthwash (7 sources)Start: 84-51-2194uzqruklpmlmkb (Peridex) 0.12 % solution rinse WITH ONE-HALF OUNCE, hold 60 seconds and then let fall out OF mouth EVERY 8 HOURS for 14 days start using the day after procedure 09/07/2023 Activediclofenac potassium 25 mg oral tablet (20 sources)Nonsteroidal Anti-inflammatory DrugStart: 67-13-6253dxfi 2 tablets by mouth twice daily at mealtimeDiclofenac Potassium 25 MG 2 tablets with food or milk Orally Twice a day for 30 day(s) Jan, Activetake 1 tablet by mouth in the morningdiclofenac (Voltaren) 75 MG EC tablet Take 75 mg by mouth in the morning and 75 mg before bedtime. Do not crush, chew, or split. . Active fenofibrate 134 mg oral capsule (20 sources)Peroxisome Proliferator Receptor alpha AgonistStart: 07-25-2024 End: 89-68-6745ccgk 1 capsule by mouth once dailyFenofibrate Micronized 134 mg capsule Active 134 MG PO Daily July 26, 2024 9:39amtake 1 tablet by mouth in the morningfenofibrate (Tricor) 145 MG tablet Take 145 mg by mouth in the morning. Activetake 1 capsule by mouth every twenty-four hoursFenofibrate 134 MG 1 capsule with a meal Orally Once a day Activegabapentin 300 mg oral capsule (4 sources)Anti-epileptic AgentStart: 08-22-2022 End: 31-21-5260bhmx 3 capsules by mouth three times dailygabapentin 300 mg Cap 900 mg = 3 cap(s), Oral, TID, X 90 day(s), # 810 cap(s), Refills(s) 0, Pharmacy: [id number], 165, cm, 08/22/22 8:07:00 EST, Height/Length Dosing, 122.5, kg, 06/25/22 13:15:00 EST, Weight Dosing Start Date: 08/22/22 Stop Date: 11/20/22 Status: OrderedStart: 06-25-2022 End: 15-12-9925ucln 3 capsules by mouth three times dailygabapentin 300 mg Cap 900 mg = 3 cap(s), Oral, TID, X 30 day(s), # 270 cap(s), Refills(s) 0, Pharmacy: [facility], 165, cm, 06/25/22 13:15:00 EST, Height/Length Dosing, 122.5, kg, 06/25/22 13:15:00 EST, Weight Dosing Start Date: 06/25/22 Stop Date: 07/25/22 Status: OrderedStart: 05-16-2022 End: 43-59-8937rhse 2 capsules by mouth three times dailygabapentin 300 mg Cap 600 mg = 2 cap(s), Oral, TID, X 30 day(s), # 180 cap(s), Refills(s) 0, Pharmacy: [id number], 165, cm, 05/16/22 12:39:00 EDT, Height/Length Dosing, 124, kg, 05/16/22 12:39:00 EDT, Weight Dosing Start Date: 05/16/22 Stop Date: 06/15/22 Status: OrderedIbuprofen (11 sources)Nonsteroidal Anti-inflammatory DrugStart: 37-61-3079cwwmvnfzp Refills(s) 0 Start Date: 05/16/22 Status: Orderedtake 2 tablets by mouth three times daily at mealtime as neededIbuprofen 200 MG 2 tablets with food or milk as needed Orally Three times a day Activelisinopril 5 mg oral tablet (20 sources)Angiotensin Converting Enzyme InhibitorStart: 03-24-2022 End: 28-84-1391svyqpstogt 5 MG tablet Take 5 mg by mouth. 03/24/2022 Active loratadine 10 mg oral tablet (14 sources)Start: 22-59-7831frfr 1 tablet by mouth once dailyLoratadine (Allergy Relief (Loratadine)) 10 mg tablet Active 10 MG PO Daily July 26, 2024 12:00amStart: 44-35-3975lirf 1 capsule by mouth once daily as needed loratadine 10 mg oral capsule 10 mg = 1 cap(s), Oral, Daily, PRN Allergy symptoms, Refills(s) 0 Start Date: 03/06/16 Status: Orderedmeloxicam 15 mg oral tablet (1 source)Nonsteroidal Anti-inflammatory DrugStart: 02-13-2025 End: 20-01-3421oyid 1 tablet by mouth once dailymeloxicam (Mobic) 15 MG tablet Indications: Osteoarthritis of spine with radiculopathy, lumbar region Take 1 tablet (15 mg) by mouth Daily 30 tablet 11 02/13/2025 02/13/2026 Active Methocarbamol (4 sources)Muscle RelaxantRobaxin ActivemethylPREDNISolone 4 mg oral tablet (20 sources)CorticosteroidStart: 20-10-3854hfvi 1 dose by mouth once dailyMedrol 4 MG as directed Orally Once a day for 6 days Please discontinue NSAID's while taking the Medrol Dose shannan Dec, ActiveStart: 88-94-9091Bols-Medrol 80 mg Dec, 80 mgMedrol 4 MG as directed Orally Once a day Activemontelukast 10 mg oral tablet (20 sources)Leukotriene Receptor Antagonisttake 1 tablet by mouth every twenty- four hoursMontelukast Sodium 10 MG 1 tablet Orally Once a day ActiveMultiple Vitamins-Minerals (multivitamin with iron-minerals) liquid (7 sources)Multiple Vitamins-Minerals (multivitamin with iron-minerals) liquid Take by mouth Daily. Activenortriptyline 50 mg oral capsule (12 sources)Tricyclic AntidepressantStart: 02-13-2025 End: 24-96-2295pttu 2 capsules by mouth at bedtimenortriptyline (Pamelor) 50 MG capsule Indications: Osteoarthritis of spine with radiculopathy, lumbar region Take 2 capsules (100 mg) by mouth at bedtime 60 capsule 2 02/13/2025 05/14/2025 ActiveStart: 10-24-2024 End: 65-95-7634uupg 1 capsule by mouth at bedtimenortriptyline (Pamelor) 50 MG capsule Indications: Meralgia paraesthetica, left Take 1 capsule (50 mg) by mouth at bedtime 30 capsule 2 10/24/2024 02/13/2025 Discontinued (Reorder)Start: 12-14-2023 End: 73-56-1490uayf 1 capsule by mouth at bedtimenortriptyline (Pamelor) 25 MG capsule Indications: Meralgia paraesthetica, left Take 1 capsule (25 mg) by mouth at bedtime 30 capsule 11 12/14/2023 10/24/2024 Discontinued (Reorder) ondansetron 4 mg disintegrating oral tablet (6 sources)Serotonin-3 Receptor AntagonistStart: 80-04-9557pyld 1 tablet by mouth every eight hours as needed for nausea and vomitingOndansetron 4 mg tablet,disintegrating Active 4 MG PO Every 8 hours as needed for nausea and vomiting 7 September 19, 2024 12:00amStart: 57-85-9286dprd 1 tablet by mouth every six hours as neededZofran 4 MG 1 tablet Orally Q6H PRN for 30 day(s) May, Activeoseltamivir 75 mg oral capsule (1 source)Neuraminidase InhibitorStart: 99-48-5519pyey 1 capsule by mouth twice dailyOseltamivir (Tamiflu) 75 mg capsule Active 75 MG PO Twice daily 10 September 19, 2024 12:00ampenicillin v potassium 500 mg oral tablet (7 sources)Start: 33-52-2162ydhh 1 tablet by mouth every hour, then take 1 tablet by mouth every six hourspenicillin v potassium (Veetid) 500 MG tablet TAKE 1 TABLET BY MOUTH 1 HOUR PRIOR TO PROCEDURE thenONE TABLET EVERY 6 HOURS UNTIL GONE 09/07/2023 ActivepredniSONE 20 mg oral tablet (4 sources)Start: 67-63-9374uwtg 2 tablets by mouth once dailyPrednisone 20 mg tablet Active 40 MG PO Daily 10 September 19, 2024 12:00amStart: 12-05-2021 predniSONE 20 MG 1 tablet Orally TID X 3 DAYS, BID X 3 DAYS, QD X 3 DAYS November, ActivetiZANidine 4 mg oral tablet (2 sources)Central alpha-2 Adrenergic AgonistStart: 02-13-2025 End: 10-98-8959qhkj 1 tablet by mouth at bedtimetiZANidine (Zanaflex) 4 MG tablet Indications: Osteoarthritis of spine with radiculopathy, lumbar region Take 1 tablet (4 mg) by mouth at bedtime 30 tablet 11 02/13/2025 02/13/2026 ActiveTylenol Extra Strength 500 MG (8 sources)take 1 tablet by mouth every six hours as neededTylenol Extra Strength 500 MG 1 tablet as needed Orally every 6 hrs ActiveVentolin HFA 90 mcg/inh Aerosol (5 sources)Start: 57-82-7820nhbb 1 puff(s) by inhalation once daily for wheezing Ventolin HFA 90 mcg/inh Aerosol 1 puff(s), Inhalation, Daily for wheezing, Refill(s) 0 Start Date: 03/06/16 Status: Ordered Completed/Discontinued Medications MedicationDrug Class(es)DatesSig (Normalized)Sig (Original)acetaminophen 325 mg / oxyCODONE hydrochloride 5 mg oral tablet (15 sources)Opioid AgonistStart: 14-40-6364hedz 1 tablet by mouth every six hours as neededPercocet 5-325 MG 1 tablet as needed Orally every 6 hrs PRN PRN November, Not-TakingStart: 81-81-7951lkgc 1 tablet by mouth every six hours as neededPercocet 5-325 MG 1 tablet as needed Orally every 6 hrs PRN PRN November, Activeamoxicillin 875 mg / clavulanate 125 mg oral tablet (4 sources)Penicillin-class AntibacterialStart: 32-76-7473tuxx 1 tablet by mouth every twelve hoursAmoxicillin-Pot Clavulanate 875-125 MG 1 tablet Orally every 12 hrs for 10 day(s) Jun, Not-Takingdicyclomine hydrochloride 20 mg oral tablet (4 sources)AnticholinergicStart: 87-93-8176ihgu 1 tablet by mouth every twelve hoursDicyclomine HCl 20 MG 1 tablet Orally BID for 30 day(s) Jul, Not-Takingpregabalin 300 mg oral capsule (12 sources)Start: 03-10-2024 End: 97-98-0562aywl 1 capsule by mouth twice daily at bedtimepregabalin (Lyrica) 300 MG capsule Indications: Meralgia paraesthetica, left TAKE 1 CAPSULE BY MOUTH TWICE DAILY (IN THE MORNING and BEFORE bedtime) 180 capsule 12/13/2024 02/13/2025 Discontinued (Reorder)Triamcinolone (19 sources)CorticosteroidStart: 18-68-7538IDNRZVW - 10 mg Dec, 10 mg Problems Active Problems Problem ClassificationProblemDateDocumented DateEpisodic/ChronicAbdominal pain (20 sources)Left lower quadrant pain; Translations: [Unspecified abdominal pain] Onset: 05-14-2021 Resolved: 35-53-1337AlidbabpTpzkcsgxap disorders (7 sources)Adjustment disorder with depressed mood; Translations: [Adjustment disorder with depressed mood]Onset: 601485-49-4803Fozybjf Administrative/social admission (9 sources)Dietary management surveillance; Translations: [Dietary counseling and surveillance]EpisodicAnxiety disorders (20 sources)Anxiety; Translations: [Anxiety disorder, unspecified]07-25-2024 ChronicAsthma (20 sources)Unspecified asthma, uncomplicated; Translations: [Asthma]Onset: 266588-48-0595IqtdxjcHeqlebgs atherosclerosis and other heart disease (1 source)Coronary atherosclerosis and other heart diseaseOnset: 03-01-2018 Diabetes mellitus without complication (20 sources)Hyperglycemia; Translations: [Hyperglycemia, unspecified]07-25-2024 EpisodicDisorders of lipid metabolism (20 sources)Hyperlipidemia; Translations: [Hyperlipidemia, unspecified]Onset: 05-28-2021 Resolved: 43-62-8872VrxhbxtTvzirtukc hypertension (20 sources)Elevated blood pressure; Translations: [Essential (primary) hypertension]Onset: 018875-05-7478JoufrboNzcxtfhyw (2 sources)Influenza due to Influenza A virus; Translations: [Influenza due to other identified influenza virus with other respiratory manifestations] 96-93-1049UanmyjhhIaub disorders (10 sources)Major depressive disorder, single episode, unspecified; Translations: [Depressive disorder]Onset: 53-96-2352YjnjlhjWcicpp and vomiting (9 sources)Nausea; Translations: [Nausea]Onset: 05-28-2021 Resolved: 92-95-4164ZcymxbunDmrgddprcju deficiencies (20 sources)Vitamin D deficiency; Translations: [Vitamin D deficiency, unspecified]Onset: 718716-25-1354UufsozkBnqscwtbrrflae (11 sources)Osteoarthritis; Translations: [Unspecified osteoarthritis, unspecified site]Onset: 648683-12-4474WruzizaGqzge bone disease and musculoskeletal deformities (9 sources)Costal chondritis; Translations: [Chondrocostal junction syndrome [Tietze]]EpisodicOther connective tissue disease (17 sources)Absent reflex; Translations: [Other symptoms and signs involving the nervous system]EpisodicOther connective tissue disease (1 source)Pain in right legEpisodicOther connective tissue disease (1 source)Pain in left legEpisodicOther disorders of stomach and duodenum (20 sources)Indigestion; Translations: [Functional dyspepsia]80-51-4791Bqpjbmtm Other ear and sense organ disorders (11 sources)Hearing loss; Translations: [Unspecified hearing loss, unspecified ear]Onset: 496810-09-1441NcnmdtyZctre liver diseases (1 source)Fatty (change of) liver, not elsewhere classified; Translations: [FATTY CHANGE LIVER NEC]Onset: 29-71-3858BwdiqolMwwme nervous system disorders (12 sources)Meralgia paresthetica of left leg; Translations: [Meralgia paresthetica, left lower limb]Onset: 971328-40-6259NcluocqYxrld nervous system disorders (7 sources)Left leg peripheral neuropathy; Translations: [Meralgia paresthetica, left lower limb]Onset: 380014-19-6684PexqnytVeyxl nervous system disorders (17 sources)Paresthesia of left lower limb; Translations: [Paresthesia of skin] EpisodicOther non-traumatic joint disorders (9 sources)Knee pain; Translations: [Pain in unspecified knee]EpisodicOther nutritional; endocrine; and metabolic disorders (9 sources)Body mass index 40+ - severely obese; Translations: [Body mass index (BMI) 45.0-49.9, adult]ChronicOther nutritional; endocrine; and metabolic disorders (20 sources)Obesity; Translations: [Obesity, unspecified]40-41-9397MgaxyjdHrden nutritional; endocrine; and metabolic disorders (7 sources)Morbid obesity; Translations: [Morbid (severe) obesity due to excess calories]Onset: 514288-61-2440XsjfzucNngat screening for suspected conditions (not mental disorders or infectious disease) (16 sources)Screening status; Translations: [Encounter for screening for malignant neoplasm of prostate]Onset: 05-28-2021 Resolved: 41-28-9634DwyhdwyrIlnqa upper respiratory disease (20 sources)Seasonal allergic rhinitis; Translations: [Other seasonal allergic rhinitis]Onset: 817313-22-4808XbeblxaOpjzf upper respiratory disease (2 sources)Seasonal allergy; Translations: [Other seasonal allergic rhinitis] 40-25-9569IrpkcjrSnfeb upper respiratory disease (9 sources)Congestion of nasal sinus; Translations: [Nasal congestion]Episodic Residual codes; unclassified (12 sources)Sleep apnea; Translations: [Sleep apnea, unspecified]Onset: 476244-73-6398LlkretzUfoierh on above:hasn't wore cpap in a couple of yearsResidual codes; unclassified (20 sources)Family history of malignant neoplasm of gastrointestinal tract; Translations: [Family history of malignant neoplasm of digestive organs]Episodic Residual codes; unclassified (2 sources)Family history of cancer of colon; Translations: [Family history of malignant neoplasm of digestiveorgans]67-46-1389GmzqldrrTzamzfxdl and history of mental health and substance abuse codes (1 source)Personal history of nicotine dependence; Translations: [PERSONAL HISTORY OF NICOTINE DEPEND]Onset: 25-49-9543GavdbeudGbwbvbypoib; intervertebral disc disorders; other back problems (18 sources)Degeneration of lumbar intervertebral disc; Translations: [Other intervertebral disc degeneration, lumbar region]Onset: 12-25-2021 Resolved: 13-02-9521QbtxadxKbumoeotsvi; intervertebral disc disorders; other back problems (20 sources)Low back pain; Translations: [Low back pain]Onset: 12-05-2021 Resolved: 58-00-6281YocuhulbKzfwubrakpjt (2 sources)Chest pain, unspecified / R07.9(ICD-9)Onset: 86-34-2004Vfsukilwfqhq (1 source)Shortness of breath / R06.02(ICD-9)Onset: 16-50-2165Ynjnrshdfjnc (1 source)LOW BACK PAIN, UNSPECIFIED; Translations: [LOW BACK PAIN, UNSPECIFIED] Onset: 12-03-2021 Past or Other Problems Problem ClassificationProblemDateDocumented DateEpisodic/ChronicBlindness and vision defects (14 sources)Myopia; Translations: [Myopia, unspecified eye]Onset: 06-15-2023 31-36-2704SfhhrtzrDwelipxr of urinary tract (1 source)Personal history of urinary calculi; Translations: [PERSONAL HISTORY OF URINARY CALCULI]Onset: 32-68-0170VahtvujyEthfljsgeac chest pain (13 sources)Chest pain, unspecified; Translations: [Chest wall pain]Onset: 014571-92-5565KhyxmzhlNkdoi connective tissue disease (2 sources)Other symptoms and signs involving the nervous systemOnset: 12-05-2021 Resolved: 77-22-5836MpklkhoeIczmu connective tissue disease (7 sources)Enthesitis; Translations: [Enthesopathy, unspecified]Onset: 577508-75-1511MewsldvuVlwrs gastrointestinal disorders (1 source)Abdominal distension (gaseous)Onset: 05-28-2021 Resolved: 22-27-6691MfzucjskGqpes nervous system disorders (1 source)Paresthesia of skinOnset: 12-05-2021 Resolved: 97-74-9430FgmlgosjLjmjf non-traumatic joint disorders (5 sources)Pain in unspecified knee; Translations: [Pain in joint, lower leg] Onset: 278684-51-9479VjslzcbhIptuohct codes; unclassified (7 sources)Contact with and (suspected) exposure to other hazardous substances; Translations: [Contact with and (suspected) exposure to other potentially hazardous substances]Onset: 342671-75-8455Aqbywucx Results Test NameValueInterpretationReference RangeFacilityUS gall bladderon 08-15-2024 [facility] [place] [address] Ultrasound Report Signed Patient: Petros Sandoval MR#: [id number] 464 : 1970 Acct:[id number] Age/Sex: 54 / M ADM Date: 08/15/24 Loc: Room: Type: [facility] Attending Dr: Miguel Buck DO Ordering Provider: Miguel Buck DO Date of Service: 08/15/24 US/US gall bladder: R10.9 - Unspecified abdominal pain Copies to: Miguel Buck DO LIMITED ABDOMINAL ULTRASOUND: CLINICAL HISTORY: Right upper quadrant pain for 2 weeks. COMPARISON: Gallbladder ultrasound 10/13/2015 TECHNIQUE: Grayscale and color Doppler images of the right upper quadrant organs were obtained. FINDINGS: Pancreas: Visualized portions appear unremarkable. Liver: Fatty infiltration. Gallbladder: Normal. CBD: 3.9 mm US/US gall bladder IMPRESSION: FATTY INFILTRATION LIVER. NO ACUTE FINDINGS.. Impression dictated by: Terry uGerra Jr., Gloria08/15/2024 9:15 AM Dictation Location: [place] [address] Tech: Blanca Gutierrez Transcribed By: HEVER 08/15/24914 Dictated By: Terry Guerra Jr, DO 08/15/2414 Signed By: 08/15/2415[facility] GroupLabor[facility] - Chemistry and Chemistry - challengeon 25-50-4161Nxxmnlnyo Ql (U)NegativeKing'S Daughters Medical Center OhioGlucose (U) [Mass/Vol]NegativeKing'S Daughters Medical Center [place] Ketones Ql (U)[facility] HospitalpH (U)5.5 [pH][facility] Medical Centerpecific gravity (U) [Rel density]1.025King'S Daughters Medical Center OhioUrobilinogen (U) [Mass/Vol]0.2 mg/dLKing'S Daughters Medical Center OhioLaboratory - Specimen informationon 49-16-0364Lbjacfdbic (U)clearKing'S Daughters Medical Center OhioColor (U)yellowKing'S Daughters Medical Center [place] Laboratory - Urinalysison 80-73-2303Wfyzwdtmu esterase Test strip Ql (U)Negative [facility] OhioNitrite Ql (U)NegativeKing'S Daughters Medical Center OhioProtein Ql (U)Magruder HospitalNo Panel Informationon 15-23-1894Jrfdp Occult BloodNegativeKing'S Daughters Medical Center OhioCoding Summary.on 69-52-0670Bwybtv Summary. CD:[id number]+PGhlYWQ+TR3YXCVaD41unCEjeX2UJ2oGDI4GQVUXHTQTKF0RAG8xg PK9YYwbG1OlwsHt [file] bGFw (more content not included)...NormalMetrohealth Parma Medical CenterConsent for Treatmenton 27-68-6573Fdnriea for Treatment [id number]#[id number]:127NormalMetrohealth Parma Medical CenterConsultation Noteon 72-69-2834Dyawryhocnjw NotePatient: PETROS SANDOVAL Age: 52 years Sex: Male : 1970 Associated Diagnoses: None Author: Gini Galindo PA-C Subjective Chief complaint 08/22/2022 7:58 EST Lower center back pain and left hip pain . Patient is a 52-year-old male. He presents today for follow-up after increasing gabapentin. 900 mg 3 times a day. This did some what improve his symptoms. He decided to forego the injection until after the first of the year. He is here today to once again discussed this. He has lower back pain with left buttock pain and left radiating leg pain. He rates it a 4/10. Patient previously underwent left-sided L3 transforaminal epidural steroid injection. This was done in February and it did give him approximately 50 to 60% relief. He has previously seen Dr. Ocampo but he really wants to try and avoid surgery. He would really like to discuss the injection once again now that we have passed the first of the year. He feels that things are better than when he initially started coming but he is still hoping for some relief. Health Status Allergies: Allergic Reactions (Selected) Severity Not Documented Erythromycin- Rash., Allergies (1) Active Reaction erythromycin rash Current medications: (Selected) Prescriptions Prescribed gabapentin 300 mg Cap: 900 mg = 3 cap(s), Oral, TID, X 90 day(s), # 810 cap(s), Refills(s) 0, Pharmacy: [facility], 165, cm, 08/22/22 8:07:00 EST, Height/Length Dosing, 122.5, kg, 06/25/22 13:15:00 EST, Weight Dosing Documented Medications Documented Tylenol 500 mg Tab: 1,000 mg = 2 tab(s), Oral, q6hr, PRN as needed for pain, Refills(s) 0 Ventolin HFA 90 mcg/inh Aerosol: 1 puff(s), Inhalation, Daily for wheezing, Refill(s) 0 gabapentin 300 mg Cap: TAKE 3 CAPSULES BY MOUTH THREE TIMES DAILY FOR 30 DAYS ibuprofen: Refills(s) 0 lisinopril 5 mg Tab: 5 mg = 1 tab(s), Oral, Daily, Refills(s) 0 loratadine 10 mg oral capsule: 10 mg = 1 cap(s), Oral, Daily, PRN Allergy symptoms, Refills(s) 0 Problem list: All Problems Asthma / SNOMED CT 318687824 / Confirmed Apnea, sleep / SNOMED CT 361593949 / Confirmed hasn't wore cpap in a couple of years Allergic rhinitis, seasonal / SNOMED CT 288141586 / Confirmed Hypertension / SNOMED CT 6823414592 / Confirmed High cholesterol / SNOMED CT 44180063 / Confirmed Hearing deficit / SNOMED CT 16127183 / Confirmed Osteoarthritis / SNOMED CT 0244923393 / Confirmed Canceled: Asthma / SNOMED CT 139722411 Objective Vital Signs 08/22/2022 7:58 EST Peripheral Pulse Rate 82 bpm Respiratory Rate 14 br/min Systolic Blood Pressure 140 mmHg Diastolic Blood Pressure 90 mmHg Mean Arterial Pressure, Cuff 107 mmHg General: Alert and oriented, No acute distress. Overweight Eye: Normal conjunctiva. HENT: Normocephalic, Normal hearing. Cardiovascular: No edema. Musculoskeletal Normal range of motion. Normal strength. Other than left hip flexion, ADF, and EHL 4+ to 5 -/5 Integumentary: Warm, Dry, [place]. Neurologic: Alert, Oriented. Psychiatric: Cooperative, Appropriate mood & affect. Results Review Lumbar MRI report once again reviewed. Patient does have L3-4 degenerative disc disease with disc bulge and left-sided foraminal narrowing. L4-5 disc bulge with moderate bilateral foraminal stenosis.L5-S1 degenerative disc disease with severe left-sided foraminal stenosis. Impression and Plan Patient is a 52-year-old male with a past medical history significant for lumbar stenosis, lumbar neuritis and lumbar spondylosis. At his last appointment we increase his gabapentin. He is using 900 mg 3 times a day and this does help him. He tolerates it well. He is requesting a refill. OARRS was reviewed and a refill will be sent. In regards to the previous injection that was ordered he had a few questions that we discussed. I answered his questions. We once again discussed pursuing a left-sided L5-S1 transforaminal epidural steroid injection for both diagnostic and therapeutic purposes. Procedure was discussed. Risks and benefits were discussed. Patient is agreeable. He will follow-up 2 weeks after the injection for reevaluation. Call the clinic sooner if necessary. ROBBI score: 30[facility] HospitalComment on above:Result Comment: Electronically Signed By: Gini Galindo PA-C\.br\Date and Time Signed: 08/22/22 08:37 EST\.br\Electronically Co-Signed By: Aubrey Ruiz MD\.br\Date and Time Co-Signed: 09/02/22 11:50 ESTLegal Correspondence Officeon 97-59-1166Kwnhk Correspondence Office [id number]#1.00CD:[address] [place], [place] [address]Office/Clinic Note-Physicianon 32-33-5325Ivgass/Clinic Note-Physician [id number]#1.00CD:[address] [place], [place] [address]Patient Correspondenceon 99-02-7190Wziteci Correspondence [id number]#1.00CD:[address] [place], [place] [address]Patient [id number]#1.00CD:127 [facility] HospitalPatient Correspondence [id number]#1.00CD:[address] [place], [place] [address]Patient History Officeon 24-56-8672Grmuspb History Office [id number]#1.00CD:[address] [place], [place] [address]Patient History [id number]#1.00CD:[address] [place], [place] [address]Insurance Correspondence Officeon 06-30-2022 Insurance Correspondence Office [id number]#1.00CD:[address] [place], [place] [address]Coding Summary.on 87-69-3060Obmutc Summary. CD:[id number]:[id number]+PGhlYWQ+NX4CEKIlF68bvYWhvB1KT7dTQN2KYTJJPHQGIE1HJQ8nb YR6QKwnC3WbeiJt [file] bGFw (more content not included)...NormalMetrohealth [facility] Medical CenterConsent for Treatmenton 85-44-3025Ktirkta for Treatment [id number]#1.00CD:127NormalMetrohealth Parma Medical CenterConsultation Noteon 43-63-4142Gzhbqfngvsmd NotePatient: PETROS SANDOVAL Age: 52 years Sex: Male : 1970 Associated Diagnoses: None Author: Gini Galindo PA-C Subjective Chief complaint 06/25/2022 13:10 EST low back pain . Patient is a 52-year-old male. He presents today for follow-up after starting gabapentin. 600 mg 3 times a day. He has noticed maybe some improvement of the pain but he still has the left leg numbness. He also has some lower back and intermittent left leg shooting that he rates a 3/10 but it can get worse depending on his activities. Patient previously underwent left-sided L3 transforaminal epidural steroid injection. This was done in February and it did give him approximately 50 to 60% relief but he still had a lot of numbness in the left thigh. He has previously seen Dr. Ocampo. He wants to try and avoid surgery. At this time, he wonders what his other options are. He states that he would still like to try to get some pain relief. He states that things are better than when he started coming but they are stillnot where he would like to be. Health Status Allergies: Allergic Reactions (Selected) Severity Not Documented Erythromycin- Rash., Allergies (1) Active Reaction erythromycin rash Current medications: (Selected) Prescriptions Prescribed acetaminophen-hydrocodone 325 mg-5 mg oral tablet: 1 tab(s), Oral, q4hr Pain, 30 tab(s), Refill(s) 0 Documented Medications Documented Tylenol 500 mg Tab: 1,000 mg = 2 tab(s), Oral, q6hr, PRN as needed for pain, Refills(s) 0 Ventolin HFA 90 mcg/inh Aerosol: 1 puff(s), Inhalation, Daily for wheezing, Refill(s) 0 ibuprofen: Refills(s) 0 lisinopril 5 mg Tab: 5 mg = 1 tab(s), Oral, Daily, Refills(s) 0 loratadine 10 mg oral capsule: 10 mg = 1 cap(s), Oral, Daily, PRN Allergy symptoms, Refills(s) 0 Problem list: All Problems Asthma / SNOMED CT 608439124 / Confirmed Apnea, sleep / SNOMED CT 531432388 / Confirmed hasn't wore cpap in a couple of years Allergic rhinitis, seasonal / SNOMED CT 011441499 / Confirmed Hypertension / SNOMED CT 7433207371 / Confirmed High cholesterol / SNOMED CT 17601448 / Confirmed Hearing deficit / SNOMED CT 98074308 / Confirmed Osteoarthritis / SNOMED CT 8659792748 / Confirmed Canceled: Asthma / SNOMED CT 205493032 Objective Vital Signs 06/25/2022 13:10 EST Peripheral Pulse Rate 75 bpm Respiratory Rate 18 br/min Systolic Blood Pressure 126 mmHg Diastolic Blood Pressure 86 mmHg Mean Arterial Pressure, Cuff 99 mmHg General: Alert and oriented, No acute distress. Overweight Eye: Normal conjunctiva. HENT: Normocephalic, Normal hearing. Cardiovascular: No edema. Musculoskeletal Normal range of motion. Normal strength. Other than left hip flexion, ADF, and EHL 4+ to 5 -/5 Integumentary: Warm, Dry, [place]. Neurologic: Alert, Oriented. Psychiatric: Cooperative, Appropriate mood & affect. Results Review Lumbar MRI report once again reviewed. Patient does have L3-4 degenerative disc disease with disc bulge and left-sided foraminal narrowing. L4-5 disc bulge with moderate bilateral foraminal stenosis.L5-S1 degenerative disc disease with severe left-sided foraminal stenosis. Impression and Plan Patient is a 52-year-old male with a past medical history significant for lumbar stenosis, lumbar neuritis and lumbar spondylosis. He underwent previous left- sided L3 transforaminal epidural steroid injection which gave him some improvement. Unfortunate, he still has a lot of pain and he feels thatthis pain affects his ambulatory status. This affects his quality of life and activities of daily. Affects his ability to do things out the day and he is very bothered by this. We once again reviewedthe MRI report. Based on his pain pattern and the MRI findings I recommended to patient a left-sided L5-S1 transforaminal epidural steroid injection for both diagnostic and therapeutic purposes. Proce dure was discussed. Risk and benefits were discussed. Patient is agreeable. He will follow-up 2 weeks after the injection for reevaluation. Call the clinic sooner if necessary. We are also going to have him increase his gabapentin to 900 mg 3 times a day. How to do so was discussed. OARRS was reviewed. Refill sent to the pharmacy. [facility] HospitalComment on above:Result Comment: Electronically Signed By: Gini Galindo PA-C\.br\Date and Time Signed: 06/25/22 13:26 EST\.br\Electronically Co-Signed By: Sara ROMAN, Aubrey Comer\.br\Date and Time Co- Signed: 07/01/22 13:42 ESTOffice/Clinic Note-Physicianon 81-09-2543Goflqx/Clinic Note-[id number]#1.00CD:[address] [place], [place] [address]Patient Correspondenceon 78-62-1466Fpayigl Correspondence [id number]#1.00CD:[address] [place], [place] [address]Patient History Officeon 43-64-1147Vmqbzbz History Office [id number]#1.00CD:[address] [place], [place] [address]Coding Summary.on 13-38-5870Guukap Summary. CD:[id number]:[id number]+PGhlYWQ+WF8BWIKxN05raVLofE2QT2aFNS8HIOUDYSCVIJ8CMI7gj NU8ZXnkY7AzmnMo [file] bGFw (more content not included)...NormalMetrohealth Parma Medical CenterConsent for Treatmenton 71-02-6544Ndouupy for Treatment [id number]#1.00CD:127NoHol[facility] HospitalConsultation Noteon 42-98-5935Jbstbsebdtoc NotePatient: PETROS SANDOVAL [facility]: [id number] Age: 51 years Sex: Male : 1970 Associated Diagnoses: None Author: Gini Galindo PA-C Subjective Chief complaint 05/16/2022 12:34 EDT Left low back pain, left leg pain . Patient is a 51-year-old male. He presents today for another follow-up after undergoing a left-sided L3 transforaminal epidural steroid injection. This was done in February and it did give him approximately 50 to 60% relief but he still had a lot of numbness in the left thigh. He rates his discomforta 4/10 and states at this time this is what is most bothersome to him. He states that he really does not want to have surgery. He really does not want to be on any opiate pain medication. He is wantsto feel better. Once again it is not necessarily pain that bothers him but more numbness in the thigh. He has previously seen Dr. Ocampo. He wants to try and avoid surgery. At his last appointment gabapentin was offered to him but he was not sure if he wanted to do this. Now that he has thought about it and looked into it he does think that this would possibly be a good option for him. Health Status Allergies: Allergic Reactions (Selected) Severity Not Documented Erythromycin- Rash. Current medications: (Selected) Prescriptions Prescribed acetaminophen-hydrocodone 325 mg-5 mg oral tablet: 1 tab(s), Oral, q4hr Pain, 30 tab(s), Refill(s) 0 gabapentin 300 mg Cap: 600 mg = 2 cap(s), Oral, TID, X 30 day(s), # 180 cap(s), Refills(s) 0, Pharmacy: [facility], 165, cm, 05/16/22 12:39:00 EDT, Height/Length Dosing, 124, kg, 05/16/22 12:39:00 EDT, Weight Dosing Documented Medications Documented Tylenol 500 mg Tab: 1,000 mg = 2 tab(s), Oral, q6hr, PRN as needed for pain, Refills(s) 0 Ventolin HFA 90 mcg/inh Aerosol: 1 puff(s), Inhalation, Daily for wheezing, Refill(s) 0 ibuprofen: Refills(s) 0 lisinopril 5 mg Tab: 5 mg = 1 tab(s), Oral, Daily, Refills(s) 0 loratadine 10 mg oral capsule: 10 mg = 1 cap(s), Oral, Daily, PRN Allergy symptoms, Refills(s) 0 Problem list: All Problems Asthma / SNOMED CT 989469894 / Confirmed Apnea, sleep / SNOMED CT 921742316 / Confirmed hasn't wore cpap in a couple of years Allergic rhinitis, seasonal / SNOMED CT 837670916 / Confirmed Hypertension / SNOMED CT 3384128006 / Confirmed High cholesterol / SNOMED CT 25070594 / Confirmed Hearing deficit / SNOMED CT 85947292 / Confirmed Osteoarthritis / SNOMED CT 4681709117 / Confirmed Objective Vital Signs 05/16/2022 12:34 EDT Peripheral Pulse Rate 74 bpm Systolic Blood Pressure 130 mmHg Diastolic Blood Pressure 83 mmHg Mean Arterial Pressure, Cuff 99 mmHg Vitals: Reviewed General: Sitting in a chair Fairly comfortable Overweight HEENT: Normocephalic, normal hearing, normal voice Heart and lungs: Nonlabored respirations. No edema. Musculoskeletal: Normal range of motion of the upper and lower extremities Normal strength of lower extremities 5/5 Skin: Unremarkable. Results Review Lumbar MRI report was reviewed. It is scanned into the chart. Impression and Plan Patient is a 51-year-old male with a past medical history significant for lumbar stenosis, lumbar neuritis, and lumbar spondylosis. Previous injection did give him some relief of certain areas of thepain but he still has a lot of numbness in the left thigh and this is what is most bothersome to him. It affects his ability to do things throughout the day and affects his ability to get comfortable. He has thought a lot about his different options and he would like to discuss the gabapentin that was offered to him at his last nurse consult. We once again discussed the medication. We discussed how to take the medication. We discussed potential side effects of the medication. OARRS was reviewed. A gabapentin prescription will be sent to the pharmacy. At this time he is going to trial this medication and follow-up in 1 month. Call the clinic sooner if necessary.[facility] HospitalComment on above:Result Comment: Electronically Signed By: Gini Galindo PA-C\.br\Date and Time Signed: 05/16/22 12:48 EDT\.br\Electronically Co-Signed By: Sara ROMAN, Aubrey Comer\.br\Date and Time Co-Signed: 05/27/22 13:41 EDTOffice/Clinic Note-Physicianon 32-07-6442Hyukqh/Clinic Note-Physician [id number]#1.00CD:[address] [place], [place] [address]Patient Correspondenceon 49-02-0717Xbhocrz Correspondence [id number]#1.00CD:[address] [place], [place] [address]Patient History Officeon 89-49-1496Slgxziq History Office [id number]#1.00CD:[address] [place], [place] [address]Consent for Treatmenton 08-14-7283Hjwquiw for Treatment [id number]#1.00CD:[address] [place], [place] [address]Office/Clinic Note-Physicianon 40-26-8406Dzanxo/Clinic Note-Physician [id number]#1.00CD:[address] [place], [place] [address]Patient Correspondenceon 27-79-6351Pqtxbtv Correspondence [id number]#1.00CD:[address] [place], [place] [address]Patient [id number]#1.00CD:[address] [place], [place] [address]Patient Correspondence [id number]#1.00CD:[address] [place] [address]Coding Summary.on 55-41-2366Wfstlh Summary. CD:039599EC:[id number]+PGhlYWQ+GO9ZWLSkF18efTOpoP0OB6wGSR6RCPDEIRFKPH8GSF4yo TH7VMthS5FcwrGz [file] bGFw (more content not included)...[facility] HospitalConsent for Procedure/Surgeryon 78-96-3742Rfyuyjd for Procedure/Surgery [id number]#1.00CD:[address] [place], [place] [address]Consent for Treatmenton 84-93-2322Xmvokvy for Treatment [id number]#1.00CD:[address] [place], [place] [address]Discharge Instructionson 26-32-9434Sqinpudvz Instructions [id number]#1.00CD:[address] [place], [place] [address]HIPAA Forms Officeon 71-65-2888IPJRW Forms Office [id number]#1.00CD:[address] [place], [place] [address]Insurance Correspondence Officeon 51-08-8258Ilkfsnbgp Correspondence [id number]#1.00CD:[address] [place], [place] [address]IntraOperative Documentson 49-45-7701OomdtIvqygwtvb Documents [id number]#1.00CD:[address] [place], [place] [address]Legal Correspondence Officeon 73-81-7266Rossw Correspondence Office [id number]#1.00CD:[address] [place], [place] [address]Legal Correspondence Office [id number]#1.00CD:[address] [place], [place] [address]Main OR Intraoperative Recordon 71-40-6534Vhfq OR Intraoperative Record IntraOp Document Type FT Summary Primary Physician: Aubrey Ruiz MD Finalized Date/Time: 03/24/22 10:27:10 Pt. Name: PETROS SANDOVAL Dorothy/Sex: 1970 Male Med Rec #: [id number] Physician: Aubrey Ruiz MD Financial #: [id number] Pt. Type: P Room/Bed: / Admit/Disch: 03/24/22 09:16:28 - Institution: Case Times FTPM Entry 1 Patient Times In Room 03/24/22 10:21:00 Out Room 03/24/22 10:27:00 Procedure Times Start 03/24/22 10:24:00 Stop 03/24/22 10:26:00 Anesthesia Times Last Modified By: Davi CALLAWAY, Mary Alice Harris 03/24/22 10:27:05 Case Attendance FTPM Entry 1 Entry 2 Entry 3 Case Attendee Sara ROMAN, Aubrey Tomlinson RN, Jud Daniels RN Role Performed Surgeon - Primary Home Health Care Provider - Primary Scrub - Primary Time In 03/24/22 10:21:00 03/24/22 10:21:00 03/24/22 10:21:00 Time Out 03/24/22 10:27:00 03/24/22 10:27:00 03/24/22 10:27:00 Procedure TRANSFORAMINAL EPIDURAL TRANSFORAMINAL EPIDURAL TRANSFORAMINAL EPIDURAL STEROID INJECTIO(Left) STEROID INJECTIO(Left) STEROID INJECTIO(Left) Comments Last Modified By: Mary Alice Tomlinson RN, RN, Mary Alice Walker RN 03/24/22 10:27:06 03/24/22 10:27:06 03/24/22 10:27:06 Entry 4 Case Attendee Pipe CONNER(Nona)Skylar Role Performed Fish Egg Packer Time In 03/24/22 10:21:00 Time Out 03/24/22 10:27:00 Procedure TRANSFORAMINAL EPIDURAL STEROID INJECTIO(Left) Comments Last Modified By: Mary Alice Tomlinson RN 03/24/22 10:27:06 Perioperative Protocols FTPM Pre-Care Text: Implements protective measures prior to operative or invasive procedure, confirms identity before the operative or invasive procedure, verifies operative procedure, surgical site, and laterality Entry 1 Procedure(s) TRANSFORAMINAL EPIDURAL Patient Identity Birthday, ID Band STEROID INJECTIO(Left) Verified (select at Check, Patient least 2): Participation Consents / H and P HandP, Surgery/Procedure Operative Site Present Verified Consent Marking Verified Surgical Site Yes Laterality Verified Yes Verified Procedure Verified Yes Correct Patient Yes Position Verified Availability Equipment, Medication, Prep Dry Yes Verified (If X-ray Applicable) PreOp Antibiotic No Time Out Mary Alice Tomlinson RN, Given Crystal Delgado RN, Sara Renner MD, Aubrey Comer, Pipe RT(R), Skylar Time Out Complete 03/24/22 10:21:00 Outcomes Met? Yes Last Modified By: Mary Alice Tomlinson RN 03/24/22 10:22:29 Post-Care Text: The patient is free from signs and symptoms of injury caused by extraneous objects Allergy Information FTPM Pre-Care Text: Verifies allergies Entry 1 Allergies Reviewed? Yes Allergies Reviewed Self/Patient With Outcomes Met? Yes Last Modified By: Mary Alice Tomlinson RN 03/24/22 09:43:55 Post-Care Text: The patient received appropriate medication(s) safely administered during the perioperative period Surgical Procedures FTPM Entry 1 Procedure Description Procedure TRANSFORAMINAL EPIDURAL Modifiers Left STEROID INJECTION Surgeon Description L3 TFESI Primary Procedure Yes Primary Surgeon Sara ROMAN, Aubrey Comer Start 03/24/22 10:24:00 Stop 03/24/22 10:26:00 Anesthesia Type None Surgical Service Pain Management Wound Class 1 - Clean Last Modified By: Mary Alice Tomlinson RN 03/24/22 10:27:07 General Case Data FTPM Pre-Care Text: Classifies surgical wound, implements aseptic technique, initiates traffic control Entry 1 Case Information OR Pain Proc Room Case Level Level 2 Wound Class 1 - Clean Specialty Pain Management Preop Diagnosis M54.16 Postop Same As Preop Yes Postop Diagnosis M54.16 Outcomes Met? Yes Last Modified By: Mary Alice Tomlinson RN 03/24/22 10:22:41 Post-Care Text: The patient is free from signs and symptoms of infection Skin Assessment (Pre Procedure) FTPM Pre-Care Text: Implements protective measures to prevent skin/ tissue injury due to thermal or mechanical sources Evaluates for signs and symptoms of physical injury to skin and tissue Entry 1 Skin Integrity Intact, [place], Warm, and Skin Abnormality No Dry Outcomes Met? Yes Last Modified By: Mary Alice Tomlinson RN 03/24/22 09:44:09 Post-Care Text: The patient is free from signs and symptoms of injury caused by extraneous objects Patient Positioning FTPM Pre-Care Text: Identifies physical alterations that require additional precautions for procedure-specific positioning, verifies presence of prosthetics or corrective devices, positions the patient, evaluates the patient for signs and symptoms of injury as a result of positioning Entry 1 Procedure TRANSFORAMINAL EPIDURAL Body Position Prone STEROID INJECTIO(Left) Feet Uncrossed? Yes Left Arm Position Resting at Side Right Arm Position Resting at Side Left Leg Position Extended Right Leg Position Extended Positioning Device Pillow Under Head Large, Safety Strap, Pillow Large Under Knees Press Points Checked Yes By Mary Alice Tomlinson RN Outcomes Met? Yes La (more content not included)...[facility] HospitalMain OR Preoperative Recordon 94-85-2689Cqgb OR Preoperative RecordHolding Area Document Type FTPM Summary Primary Physician: Aubrey Ruiz MD Finalized Date/Time: 03/24/22 09:43:43 Pt. Name: PETROS SANDOVAL/Sex: 1970 Male Med Rec #: [id number] Physician: Aubrey Ruiz MD Financial #: [id number] Pt. Type: P Room/Bed: / Admit/Disch: 03/24/22 09:16:28 - Institution: Case Times Holding FTPM Pre-Care Text: Verifies consent for planned procedure, identifies individual values and wishes concerning care, includes family members in perioperative teaching Secures patient's records' belongings, and valuables, maintains patient's dignity and privacy, and maintains patient confidentiality Entry 1 In Holding 03/24/22 09:42:00 Outcomes Met? Yes Last Modified By: Jolene Beal RN 03/24/22 09:42:37 Post-Care Text: The patient participates in decisions affecting his or her perioperative plan of care The patient'sright to privacy is maintained Surgery Checklist FTPM Entry 1 Patient Birthday, ID Band Procedure History and Physical, Identification: Check, Patient Verification: Surgical Consent, With Participation Patient NPO after Midnight: No Date/Time: 03/24/22 09:42:00 Results Reviewed 0600 cup of coffee Personal Items N/A Comments: Comment: Complaints of Pain: Yes Pain Comment: 11/03 lower back pain Operative Site Yes Marked By: Dr. Ruiz Marking: Location: Left L3 Availability Equipment, X-Ray Verified: Does Patient Smoke No Patient states Yes Comment - Adult son-Bj postop adult Supervision supervision available Case Cancelled in No Holding Area see comments below for reason Last Modified By: Jolene Beal RN 03/24/22 09:43:41 Finalized By: Jolene Beal RN Document Signatures Signed By: Jolene Beal RN 03/24/22 09:43NormalMetrohealth Parma Medical CenterOperative Report on 20-50-1568Mqbrdbseo ReportPatient: PETROS SANDOVAL Age: 51 years Sex: Male : 1970 Associated Diagnoses: None Author: Aubrey Ruiz MD Procedure Procedure: Transforaminal Epidural Steroid Injections with Fluoroscopic Guidance at Left L3 Diagnosis: Lumbar Radiculitis Anesthesia: Local The patient was identified in the pre-op area. A complete H&P was performed. imaging study results were reviewed. The patient has lumbar radiculitis due to foraminal stenosis. The procedure, including risks benefits and alternatives was discussed with the patient. The patient agreed to proceed.Informed consent was obtained and the site(s) marked. The patient was brought to the procedure room and placed in the prone position with padding under the abdomen to reduce lumbar lordosis. Time outwas performed. The back was prepped and draped in sterile fashion. Skin and subcutaneous tissues were anesthetizedwith 2 mL of Lidocaine 2% through a 25G needle. A 22G spinal needle was advanced under fluoroscopicguidance through the left L3 foramen into the epidural space. Isovue 0.5mL was injected under live f luoroscopy, which demonstrated appropriate epidural spread without vascular uptake. After confirmation of negative aspiration, a total of 2mL of 0.5% PF lidocaine and 10mg of PF dexamethasone were injected through the needle. The needle was removed and a bandage applied. The patient was brought to the recovery area in stable condition and then monitored for an appropriate period of time. The patient was discharged home in good condition with post-procedure instructions. No apparent complications. Epidural injection procedure Physical Exam: vital signs Vital Signs 03/24/2022 10:29 EDT Heart Rate Monitored 70 bpm Systolic Blood Pressure 151 mmHg HI Diastolic Blood Pressure 98 mmHg HI Mean Arterial Pressure, Monitered 115 mmHg SpO2 97 % 03/24/2022 10:29 EDT Respiratory Rate 16 br/min 03/24/2022 10:24 EDT Heart Rate Monitored 77 bpm Respiratory Rate 16 br/min Systolic Blood Pressure 158 mmHg HI Diastolic Blood Pressure 105 mmHg HI SpO2 97 % 03/24/2022 9:44 EDT Temperature Oral 36.5 DegC Heart Rate Monitored 78 bpm Respiratory Rate 12 br/min LOW Systolic Blood Pressure 145 mmHg HI Diastolic Blood Pressure 88 mmHg Mean Arterial Pressure, Monitered 107 mmHg SpO2 98 % .[facility] HospitalComment on above:Result Comment: Electronically Signed By: Aubrey Ruiz MD\.br\Date and Time Signed: 03/24/22 10:52 EDTOperative ReportPatient: PETROS SANODVAL Age: 51 years Sex: Male : 1970 Associated Diagnoses: None Author: Aubrey Ruiz MD Procedure Procedure: Transforaminal Epidural Steroid Injections with Fluoroscopic Guidance at Left L3 Diagnosis: Lumbar Radiculitis Anesthesia: Local The patient was identified in the pre-op area. A complete H&P was performed. imaging study results were reviewed. The patient has lumbar radiculitis due to foraminal stenosis. The procedure, including risks benefits and alternatives was discussed with the patient. The patient agreed to proceed.Informed consent was obtained and the site(s) marked. The patient was brought to the procedure room and placed in the prone position with padding under the abdomen to reduce lumbar lordosis. Time outwas performed. The back was prepped and draped in sterile fashion. Skin and subcutaneous tissues were anesthetizedwith 6 mL of Lidocaine 2% through a 25G needle. 22G spinal needles were advanced under fluoroscopicguidance using AP and oblique views through the left L3 foramina into the epidural space. Isovue 0.5mL was injected under live fluoroscopy at each level which demonstrated appropriate epidural spreadwithout vascular uptake. After confirmation of negative aspiration, a total of 2mL of 0.5% PF lidocaine and 10mg of PF dexamethasone were injected in equally divided doses through the needles. The needles were removed and a bandage applied. The patient was brought to the recovery area in stable condition and then monitored for an appropriate period of time. The patient was discharged home in good condition with post-procedure instructions. No apparent complications. Epidural injection procedure Physical Exam: vital signs Vital Signs 03/24/2022 9:44 EDT Temperature Oral 36.5 DegC Heart Rate Monitored 78 bpm Respiratory Rate 12 br/min LOW Systolic Blood Pressure 145 mmHg HI Diastolic Blood Pressure 88 mmHg Mean Arterial Pressure, Monitered 107 mmHg SpO2 98 % .[facility] HospitalComment on above:Result Comment: incorrect note Electronically Signed By: Sara ROMAN, Aubrey Multani.br\Date and Time Signed: 03/24/22 10:27 EDTOutside Records Officeon [id number] Records Office [id number]#1.00CD:[address] [place], [place] [address]Patient Correspondenceon [id number] Correspondence [id number]#1.00CD:[address] [place], [place] [address]Patient [id number]#1.00CD:[address] [place], [place] [address]Radiology Outside Office Copyon 03-24-2022 Radiology Outside Office Copy [id number]#1.00CD:[address] [place], [place] [address]Radiology Outside Office Copy [id number]#1.00CD:[address] [place], [place] [address]Outside Records Officeon [id number] Records Office [id number]#1.00CD:[address] [place], [place] [address]Referrals Officeon [id number] Office [id number]#1.00CD:[address] [place], [place] [address]HIP 2-3 VIEWS W PELVIS LTon [id number] 2-3 VIEWS W PELVIS LTSTUDY: HIP 2-3 VIEWS W PELVIS LT; 01/14/2022 11:26 am INDICATION: PAIN. COMPARISON: None. ACCESSION NUMBER(S): [id number] ORDERING CLINICIAN: Rachana Ocampo FINDINGS: No acute fracture or dislocation of the pelvis or left hip. Mild joint space narrowing with small osteophytes. IMPRESSION: Mild degenerative changes of the left hip.NormalSt. Glendale Research HospitalCT ABD/PELV W CONon [id number] ABD/PELV W CONEXAMINATION: CT ABD/PELV W CON HISTORY: UNSPECIFIED ABDOMINAL PAIN. COMPARISON: CT abdomen and pelvis performed earlier today. TECHNIQUE: Axial CT images were obtained from the lung bases through the pelvis after the administration of IV contrast. Coronal and sagittal reconstruction images were also obtained. Dose reduction techniques were achieved by using automated exposure control and/or adjustment of mA and/or kV according to patient size and/or use of iterative reconstruction technique. FINDINGS: The visualized portion of the lung bases are clear. The visualized portion of the heart appears unremarkable. Circumferential thickening of the distal esophagus is likely related to underdistended. There is diffuse fatty infiltration of the liver. The main portal vein is patent. The right hepatic lobe measures 18.4 cm in craniocaudal dimension. There is a 4.5 mm enhancing lesion in the subcapsular region of the right hepatic lobe, likely represents a flash filling hemangioma. The gallbladder is fluid-filled. The spleen measures 11.3 cm in AP dimension. The pancreas demonstrates normal contour. There is a small splenule. The stomach is underdistended. The duodenum appears unremarkable. No pathologically enlarged gastrohepatic, periportal lymph nodes. The kidneys are enhancing symmetrically without any hydronephrosis. No nephrolithiasis. No bulky retroperitoneal lymph nodes. The bladder is incompletely distended. The prostate and seminal vesicles are within normal limits. Excretory imaging demonstrates incomplete opacification of the bladder. No pathologically enlarged pelvic sidewall, groin lymph nodes. No bulky retroperitoneal lymph nodes. The small and large bowel are normal in caliber. No bowel obstruction. The appendix is normal in caliber. There are multiple fluid-filled normal caliber small bowel loops in the lower abdomen and pelvis, likely related to slow transit. Small amount of stool burden. There is no intraperitoneal free air or free fluid. The abdominal aorta is normal in caliber. No gross abnormalities of the abdominal wall. Bone windows demonstrate no suspicious osseous lesion. There are multilevel mild spondylotic changes of the thoracolumbar spine. Inferior endplate deformity at L3 is likely related to prominent Schmorl node. IMPRESSION: No acute abdominopelvic abnormality. Diffuse hepatic steatosis. No hydronephrosis/nephrolithiasis. No evidence of bowel obstruction. The appendix is normal in caliber. Electronically authenticated by: MELQUIADES GOLDMAN Date: 2021-12-01 09:06Norm[facility] AUTO DIFFon [id number] #0.0 103/ulNormal0.0-0.1[facility] HospitalComment on above:Performed By: #### LIPA, CMP #### [facility] [address] [place] [address] Dr. Roxana GraffBasophils/100 WBC (Bld)0.3 %Normal0.2-2.0[facility] Comment on above:Performed By: #### LIPA, CMP #### [facility] [address] [place] [address] Dr. Roxana Bledsoe #0.3 103/ulNormal0.0-0.7The [facility] HospitalComment on above: Performed By: #### LIPA, CMP #### [facility] [address] [place] [address] Dr. Roxana Rileyosinophils/100 WBC (Bld)2.4 %Normal0.9-7.0[facility] Comment on above:Performed By: #### LIPA, CMP #### [facility] [address] [place] [address] Dr. Roxana Rileyrythrocyte distribution width (RBC) [Ratio]11.9 %Hwcsbt34.0-15.0 [facility] HospitalComment on above:Performed By: #### LIPA, CMP #### [facility] [address] [place] [address] Dr. Roxana GraffHematodharmesh (Bld) [Volume fraction]42.5 %Avjvlx34.0-54.0[facility] HospitalComment on above:Performed By: #### LIPA, CMP #### [facility] [address] [address] [address] Roxana GraffHemoglobin (Bld) [Mass/Vol]14.7 g/bHEvpzst58.0-18.0The [facility] HospitalComment on above:Performed By: #### LIPA, CMP #### [facility] [address] [address] [address] Roxana Henao #0.04 10e3/ulCritically high0.00-0.03The [facility] Comment on above:Performed By: #### LIPA, CMP #### [facility] [address] [place] [address] Dr. Roxana Henao %0.4 %Normal0.0-0.5The [facility] HospitalComment on above: Performed By: #### LIPA, CMP #### [facility] [address] [place] [address] Dr. Roxana Hall #1.9 103/ulNormal1.2-3.8The [facility] HospitalComment on above:Performed By: #### LIPA, CMP #### [facility] [address] [place] [address] Dr. Roxana Lihocytes/100 WBC (Bld)18.5 %Critically low20.5-60.0The [facility] HospitalComment on above:Performed By: #### LIPA, CMP #### [facility] [address] [place] [address] Dr. Roxana EdwardUAL DIFF REQNONormalThe [facility] HospitalComment on above: Performed By: #### LIPA, CMP #### [facility] [address] [place] [address] Dr. Roxana Wan (RBC) [Entitic mass]31.1 dhEuyjzu02.9-34.0The [facility] HospitalComment on above:Performed By: #### LIPA, CMP #### [facility] [address] [place] [address] Dr. Roxana Wan (RBC) [Mass/Vol]34.6 g/lTXgyxux64.9-35.2The [facility] HospitalComment on above:Performed By: #### LIPA, CMP #### [facility] [address] [place] [address] Dr. Roxana Tian (RBC) [Entitic vol]89.9 gEBtqnvk47.0-94.0The [facility] HospitalComment on above:Performed By: #### LIPA, CMP #### [facility] [address] [place] [address] Dr. Roxana Cardoza #0.7 103/ulNormal0.3-0.8The [facility] HospitalComment on above:Performed By: #### LIPA, CMP #### [facility] [address] [place] [address] Dr. Roxana Reinaocytes/100 WBC (Bld)7.1 %Normal1.7-12.0[facility] Comment on above:Performed By: #### LIPA, CMP #### [facility] [address] [place] [address] Dr. Roxana Ramey #7.3 103/ulCritically high1.4-6.5The [facility] Comment on above:Performed By: #### LIPA, CMP #### [facility] [address] [place] [address] Dr. Roxana Newmanutrophils/100 WBC (Bld)71.3 %Cuafzs14.0-75.0The [facility] HospitalComment on above:Performed By: #### LIPA, CMP #### [facility] [address] [place] [address] Dr. Roxana Monahan mean volume (Bld) [Entitic vol]10.3 fLNormal9.5-13.5The [facility] HospitalComment on above:Performed By: #### LIPA, CMP #### [facility] [address] [place] [address] Dr. Roxana BarrT290 103/lxNhaxxm165-978Hsa [facility] HospitalComment on above: Performed By: #### LIPA, CMP #### [facility] [address] [place] [address] Dr. Roxana GraffRBC4.73 106/ulNormal4.70-6.10The [facility] HospitalComment on above:Performed By: #### AMARILIS VALLES #### [facility] [address] [place] [address] Dr. Roxana GraffWBC10.3 103/ulNormal4.0-11.0The [facility] HospitalComment on above:Performed By: #### AMARILIS VALLES #### [facility] [address] [place] [address] Dr. Roxana GraffCT ABD/PELVIS WO CONon [id number] ABD/PELVIS WO CONCT abdomen and pelvis without contrast (CT stone protocol) CLINICAL: CALCULUS OF KIDNEY. Left flank and left groin pain since last night. History of kidney stones. TECHNIQUE: Contiguous transaxial images were obtained from lung bases to the pubic symphysis without the administration of intravenous or oral contrast. Dose reduction: mA and/or kV are were adjusted by automated exposure control software based upon patients height and weight. FINDINGS: Comparison made to CT abdomen and pelvis dated 05/14/2021. Lung bases are clear bilaterally. Limited noncontrast CT evaluation of the abdomen and pelvis demonstrates the following: The spleen, pancreas, gallbladder, and bilateral adrenal glands are normal. There is fatty infiltration of the liver. There is no intrahepatic or extrahepatic biliary ductal dilatation. There are no renal, ureteral, or urinary bladder calculi. There is no hydronephrosis. Urinary bladder fully distended. There are prostatic calcifications. There are tiny bilateral fat-containing inguinal hernias. There is no free fluid within the abdomen or pelvis, and there is no pneumoperitoneum. The abdominal aorta is normal in caliber and contour. There is minimal abdominal aortic atherosclerosis. Evaluation for lymphadenopathy is limited in the absence of intravenous contrast. However, there is no gross abdominal or pelvic lymphadenopathy. Evaluation of the stomach and bowel is limited in the absence of contrast. The stomach and small bowel are grossly normal without small bowel obstruction. The appendix is normal. There is a normal volume of colonic stool. There is no acute colonic pathology. There is no acute osseous abnormality. There is bilateral, left greater right, hip osteoarthritis. 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 IMPRESSION: 1. No urolithiasis or hydronephrosis. 2. Fatty infiltration of the liver. 3. Normal appendix and gallbladder. Note that evaluation of solid visceral organs and bowel is limited in the absence of oral and intravenous contrast. Electronically authenticated by: LUIS MORGAN Date: 2021-11-30 11:29[facility] URINE PROFILEon [id number] Ql (U)NegativeNormal NEGATIVEJoint Township District Memorial HospitalComment on above:Performed By: #### ERUR #### [facility] [address] [place] [address] Dr. Roxana GraffClarity (U)CLEARNormalCLEARJoint Township District Memorial HospitalComment on above: Performed By: #### ERUR #### [facility] [address] [place] [address] Dr. Roxana Mccollum micrscopic examination will be performed if indicated. NormalJoint Township District Memorial HospitalComment on above:Performed By: #### ERUR #### [facility] [address] [place] [address] Dr. Roxana GraffGlucose Ql (U)NegativeNormalNEGATIVEJoint Township District Memorial HospitalComment on above:Performed By: #### ERUR #### [facility] [address] [place] [address] Dr. Roxana GraffHemoglobin Ql (U)NegativeNormalNEGMarymount Hospital on above:Performed By: #### ERUR #### [facility] [address] [place] [address] Dr. Roxana GraffKetones Ql (U)NegativeNormalNEGATIVEJoint [facility] District Memorial HospitalComment on above:Performed By: #### ERUR #### [facility] [address] [place] [address] Dr. Roxana GraffLEUKOCYTESNegativeNormalNEGATIVEJoint Township District Memorial HospitalComment on above:Performed By: #### ERUR #### [facility] [address] [place] [address] Dr. Roxana GraffNitrite Ql (U)NegativeNormalNEGATIVEJoint Township District Memorial HospitalComment on above:Performed By: #### ERUR #### [facility] [address] [place] [address] Dr. Roxana GraffpH (U)6.5 [pH]Normal5-9The [facility] HospitalComment on above: Performed By: #### ERUR #### [facility] [address] [place] [address] Dr. Roxana GraffSPEC GRAVITY1.910Lhnoai6.005-<=1.025The [facility] HospitalComment on above:Performed By: #### ERUR #### [facility] [address] [place] [address] Dr. Roxana Ponce PROTEINNegativeNormalNEGATIVE/ TRACEThe [facility] Comment on above:Performed By: #### ERUR #### [facility] [address] [place] [address] Dr. Roxana Paz MICRO INDNOT INDICATEDNormalThe [facility] HospitalComment on above:Performed By: #### ERUR #### [facility] [address] [place] [address] Dr. Roxana Lobatobilinogen Qn (U)0.2 {Tres'U}/dLNormal0.2 - 1.0The [facility] HospitalComment on above:Performed By: #### ERUR #### [facility] [address] [place] [address] Dr. Roxana GraffPROF CHEM 8 (BAS METB)on [id number] gap [Moles/Vol]10.2 mmol/LNormalThe [facility] HospitalComment on above:Performed By: #### LIPA, CMP #### [facility] [address] [place] [address] Dr. Roxana GraffCalcium [Mass/Vol]8.7 mg/dLNormal8.5-10.1The [facility] Comment on above:Performed By: #### LIPA, CMP #### [facility] [address] [place] [address] Dr. Roxana GraffChloride [Moles/Vol]102 mmol/WXxbzmf48-721Cfi [facility] Comment on above:Performed By: #### LIPA, CMP #### [facility] [address] [address] [address] Roxana GraffCO2 [Moles/Vol]28.6 mmol/YTstzzv92.0-32.0The [facility] Comment on above:Performed By: #### LIPA, CMP #### [facility] [address] [address] [address] Roxana GraffCreatinine [Mass/Vol]0.63 mg/dLCritically low0.70-1.30The [facility] HospitalComment on above:Performed By: #### LIPA, CMP #### [facility] [address] [address] [address] Roxana RileyGFR-AF SLOVAK>60Normal>=60The [facility] HospitalComment on above:Performed By: #### LIPA, CMP #### [facility] [address] [address] [address] Roxana RileyGFR-NON AF SLOVAK=60Normal>=60The [facility] HospitalComment on above:Performed By: #### LIPA, CMP #### [facility] [address] [address] [address] Roxana GraffGlucose [Mass/Vol]129 mg/dLCritically aamb68-028Tgh [facility] HospitalComment on above:Performed By: #### LIPA, CMP #### [facility] [address] [address] [address] Roxana GraffPotassium [Moles/Vol]3.8 mmol/LNormal3.5-5.1The [facility] Comment on above:Performed By: #### LIPA, CMP #### [facility] [address] [address] [address] Roxana GraffSodium [Moles/Vol]137 mmol/YYrpqde017-352Ryf [facility] Comment on above:Performed By: #### LIPA, CMP #### [facility] [address] [address] [address] Roxana GraffUrea nitrogen [Mass/Vol]11.0 mg/dLNormal7.0-18.0The [facility] Centerment on above:Performed By: #### LIPA, CMP #### [facility] [address] [address] [address] Roxana GraffUrea nitrogen/Creatinine [Mass ratio]17.5 mg/mgNoMercy Health Fairfield HospitalComcaro center on above:Performed By: #### LIPA, CMP #### [facility] [address] [address] [address] Roxana GraffSED RATE WESTERGRENon [id number] RATE8 mm/hrNormal<=20The [facility] HospitalComcaro center on above:Performed By: #### LIPA, CMP #### [facility] [address] [address] [address] Roxana GraffNM HEPATOBILIARY SCAN W EFon [id number] HEPATOBILIARY SCAN W EF EXAMINATION: NM HEPATOBILIARY SCAN W EF HISTORY: Right upper quadrant pain COMPARISON: No relevant comparison available. TECHNIQUE: Radionuclide hepatobiliary imaging was performed after intravenous injection of 5.1 mCi Tc-99m ROBERT derivative with sequential acquisitions every 1 minute for one hour. Hepatobiliary imaging with gallbladder ejection fraction analysis was then performed with sequential imaging every 1 minute for 60 minutes following ingestion of 8 ounces Ensure Plus. FINDINGS: LIVER: Normal, prompt and uniform radiotracer uptake and clearing. BILIARY DUCTS: Normal radioisotopic biliary excretion. GALLBLADDER: Normal with no evidence of cystic duct obstruction. INTESTINE: Normal with no evidence of common biliary ductal obstruction. EJECTION FRACTION: 95 % within 60 minutes. (Normal EF > 38%). OTHER: Negative. IMPRESSION: 1. Normal nuclear medicine HIDA scan. Electronically authenticated by: ARNOLD BRICEÑO Date: 2021-10-24 09:35NoMercy Health Fairfield HospitalUS SINGLE QUAD RT UPPERon [id number] SINGLE QUAD RT UPPER Sound of the right upper quadrant. HISTORY: . Right upper quadrant pain COMPARISON: None. TECHNIQUE: Grayscale and color imaging was performed FINDINGS: The body of the pancreas appears normal. The head and tail was obscured due to overlying bowel gas. Scanning of the liver demonstrates mild increased echogenicity of liver consistent with fatty infiltration of the liver. There are couple small areas of hypoechogenicity in the right lobe of the liver near the gallbladder fossa most consistent with focal fatty sparing. Liver is enlarged measuring 20 cm. Color-flow is noted in the portal and hepatic veins. Common bile duct is normal measuring 3 mm. The gallbladder appears normal with no stones or sludge identified. No gallbladder wall thickening is noted. Right kidney measures 12.9 x 6.1 x 5.7 cm. Color-flow is noted. No solid renal cortical masses or hydronephrosis is noted. No fluid is noted in the right upper quadrant. IMPRESSION: 1. Liver is mildly enlarged measuring 20 cm. There is increased echogenicity of liver consistent with fatty infiltration of the liver. There are couple small hypoechoic areas in the right lobe liver near the gallbladder fossa most consistent with focal fatty sparing. 2. The body of pancreas appears normal. The head and tail was obscured due to overlying bowel gas. 3. The remainder the right upper quadrant was unremarkable. Electronically authenticated by: CORINNE SNOG Date: 2021-05-15 08:29No[facility] AUTO DIFFon [id number] #0.0 103/ulNormal0.0-0.1The [facility] HospitalComment on above:Performed By: #### CBC #### [facility] [address] [address] [address] Roxana GraffBasophils/100 WBC (Bld)0.4 %Normal0.2-2.0[facility] Comment on above:Performed By: #### CBC #### [facility] [address] [address] [address] Roxana Bledsoe #0.3 103/ulNormal0.0-0.7The [facility] HospitalComment on above: Performed By: #### CBC #### [facility] [address] [address] [address] Roaxna Rileyosinophils/100 WBC (Bld)2.6 %Normal0.9-7.0The [facility] Comment on above:Performed By: #### CBC #### [facility] [address] [address] [address] Roxana Rileyrythrocyte distribution width (RBC) [Ratio]11.9 %Gfcmtv67.0-15.0 The [facility] HospitalComment on above:Performed By: #### CBC #### [facility] [address] [address] [address] Roxana Merrittatocrit (Bld) [Volume fraction]41.2 %Critically low42.0-54.0 The [facility] Centerment on above:Performed By: #### CBC #### [facility] [address] [address] [address] Roxana GraffHemoglobin (Bld) [Mass/Vol]14.4 g/kNFfnuht94.0-18.0The [facility] Centerment on above:Performed By: #### CBC #### [facility] [address] [place] [address] Dr. Roxana Henao #0.04 10e3/ulCritically high0.00-0.03The [facility] Comment on above:Performed By: #### CBC #### [facility] [address] [place] [address] Dr. Roxana Henao %0.4 %Normal0.0-0.5The [facility] Centerment on above: Performed By: #### CBC #### [facility] [address] [place] [address] Dr. Roxana Hall #2.0 103/ulNormal1.2-3.8The [facility] on above:Performed By: #### CBC #### [facility] [address] [place] [address] Dr. Roxana Dunnmphocytes/100 WBC (Bld)19.9 %Critically low20.5-60.0The [facility] on above:Performed By: #### CBC #### [facility] [address] [place] [address] Dr. Roxana EdwardUAL DIFF REQNONormalThe [facility] HospitalComment on above: Performed By: #### CBC #### [facility] [address] [place] [address] Dr. Roxana Garcia (RBC) [Entitic mass]32.1 hsAavbtz67.9-34.0The [facility] HospitalComment on above:Performed By: #### CBC #### [facility] [address] [place] [address] Dr. Roxana Wan (RBC) [Mass/Vol]35.0 g/yGOyzqgr96.9-35.2The [facility] HospitalComment on above:Performed By: #### CBC #### [facility] [address] [place] [address] Dr. Roxana Wan (RBC) [Entitic vol]92.0 yDJmotuy77.0-94.0The [facility] HospitalComment on above:Performed By: #### CBC #### [facility] [address] [place] [address] Dr. Roxana Cardoza #0.8 103/ulNormal0.3-0.8The [facility]Comment on above:Performed By: #### CBC #### [facility] [address] [place] [address] Dr. Roxana Reinaocytes/100 WBC (Bld)8.0 %Normal1.7-12.0The [facility] Comment on above:Performed By: #### CBC #### [facility] [address] [place] [address] Dr. Roxana Ramey #6.7 103/ulCritically high1.4-6.5The [facility] Comment on above:Performed By: #### CBC #### [facility] [address] [place] [address] Dr. Roxana Newmanutrophils/100 WBC (Bld)68.7 %Nmjwvo61.0-75.0The [facility] HospitalComment on above:Performed By: #### CBC #### [facility] [address] [place] [address] Dr. Roxana Barraganlet mean volume (Bld) [Entitic vol]10.8 fLNormal9.5-13.5The [facility] HospitalComment on above:Performed By: #### CBC #### [facility] [address] [place] [address] Dr. Roxana BarrT252 103/psWvsynn763-545Vsa [facility] HospitalComment on above: Performed By: #### CBC #### [facility] [address] [address] [address] Roxana GraffRBC4.48 106/ulCritically low4.70-6.10The [facility] HospitalComment on above:Performed By: #### CBC #### [facility] [address] [address] [address] Roxana GraffWBC9.8 103/ulNormal4.0-11.0The [facility] HospitalComment on above: Performed By: #### CBC #### [facility] [address] [address] [address] Roxana GraffCT ABD/PELVIS WO CONon [id number] ABD/PELVIS WO CONEXAMINATION: CT ABD/PELVIS WO CON HISTORY: CALCULUS OF KIDNEY acute bilateral flank pain COMPARISON: CT abdomen pelvis 02/29/2016 TECHNIQUE: Axial, Coronal, and Sagittal images were created without IV contrast. Dose reduction techniques were achieved by using automated exposure control and/or adjustment of mA and/or kV according to patient size and/or use of iterative reconstruction technique. FINDINGS: LUNG BASES: No visible pulmonary or pleural disease. LIVER: No enlargement, atrophy, abnormal density, or significant focal lesion. BILIARY: No dilatation or calcification. PANCREAS: No lesion, fluid collection, ductal dilatation, or atrophy. SPLEEN: No enlargement or focal lesion. ADRENALS: No mass or enlargement. KIDNEYS: No mass, obstruction, or calcification. BOWEL/MESENTERY: No visible mass, obstruction, or bowel wall thickening. Normal appendix. AORTA/VASCULAR: No aneurysm or dissection. RETROPERITONEUM: No mass or adenopathy. LYMPH NODES: No adenopathy. URINARY BLADDER: No visible focal wall thickening, lesion, or calculus. PELVIC ORGANS: No visible mass. Pelvic organs appropriate for patient age. ABDOMINAL WALL: No mass or hernia. BONES: No bony lesion or fracture. OTHER: Negative. IMPRESSION: 1. No urinary tract calculi. 2. No acute or suspicious findings to account for patient's symptoms. Electronically authenticated by: ARNOLD BRICEÑO Date: 2021-05-14 13:05[facility] URINE PROFILEon [id number] Ql (U)NegativeNormal NEGATIVEJoint Township District Memorial HospitalComment on above:Performed By: #### ERUR #### [facility] [address] [address] [address] Roxana Alexanderarity (U)CLEARNormalCLEARJoint Township District Memorial HospitalComment on above: Performed By: #### ERUR #### [facility] [address] [address] [address] Roxana Khalil (U)LT. YELLOWNormalYELLOWJoint Township District Memorial HospitalComment on above:Performed By: #### ERUR #### [facility] [address] [address] [address] Roxana Mccollum micrscopic examination will be performed if indicated. NormalJoint Township District Memorial HospitalComment on above:Performed By: #### ERUR #### [facility] [address] [place] [address] Dr. Roxana GraffGlucose Ql (U)NegativeNormalNEGATIVEJoint Township District Memorial HospitalComment on above:Performed By: #### ERUR #### [facility] [address] [address] [address] Roxana GraffHemoglobin Ql (U)NegativeNormalNEGATIVECleveland Clinic [facility] on above:Performed By: #### ERUR #### [facility] [address] [place] [address] Dr. Roxana GraffKetones Ql (U)NegativeNormalNEGATIVEJoint Township District Memorial HospitalComment on above:Performed By: #### ERUR #### [facility] [address] [address] [address] Roxana GraffLEUKOCYTESNegativeNormalNEGATIVEJoint Township District Memorial HospitalComment on above:Performed By: #### ERUR #### [facility] [address] [address] [address] Roxana GraffNitrite Ql (U)NegativeNormalNEGATIVEJoint Township District Memorial HospitalComment on above:Performed By: #### ERUR #### [facility] [address] [address] [address] Roxana GraffpH (U)7.5 [pH]Normal5-9The [facility] HospitalComment on above: Performed By: #### ERUR #### [facility] [address] [place] [address] Dr. Roxana GraffSPEC GRAVITY1.861Lhmszt4.005-<=1.025The [facility] HospitalComment on above:Performed By: #### ERUR #### [facility] [address] [place] [address] Dr. Roxana Ponce PROTEINNegativeNormalNEGATIVE/ TRACEThe [facility] Comment on above:Performed By: #### ERUR #### [facility] [address] [place] [address] Dr. Roxana Paz MICRO INDNOT INDICATEDNormalThe [facility] HospitalComment on above:Performed By: #### ERUR #### [facility] [address] [place] [address] Dr. Roxana Lobatobilinogen Qn (U)0.2 {Tres'U}/dLNormal0.2 - 1.0The [facility] HospitalComment on above:Performed By: #### ERUR #### [facility] [address] [place] [address] Dr. Roxana AcuñaASEon [id number] [Catalytic activity/Vol]126.0 U/LNormal 23.0-300.0The [facility] HospitalComment on above:Performed By: #### LIPA, CMP #### [facility] [address] [place] [address] Dr. Roxana GraffPROF 14(COMP METB)on [id number] [Mass/Vol]3.7 g/dLNormal 3.5-5.0The [facility] HospitalComment on above:Performed By: #### LIPA, CMP #### [facility] [address] [place] [address] Dr. Roxana GraffAlbumin/Globulin [Mass ratio]1.1 {ratio}NormalThe [facility] HospitalComment on above:Performed By: #### LIPA, CMP #### [facility] [address] [address] [address] Roxana Barbosa [Catalytic activity/Vol]50 U/BMwveff11-920Oai [facility] HospitalComment on above:Performed By: #### LIPA, CMP #### [facility] [address] [address] [address] Roxana NationT [Catalytic activity/Vol]48 U/QIjfmrp53-69Lin [facility] HospitalComment on above:Performed By: #### LIPA, CMP #### [facility] [address] [address] [address] Roxana Gentile gap [Moles/Vol]9.6 mmol/LNormalThe [facility] HospitalComment on above:Performed By: #### LIPA, CMP #### [facility] [address] [address] [address] Roxana GraffAST [Catalytic activity/Vol]30 U/FAsafdk44-32Vrn [facility] HospitalComment on above:Performed By: #### LIPA, CMP #### [facility] [address] [address] [address] Roxana GraffBilirubin [Mass/Vol]0.5 mg/dLNormal0.2-1.3TMercy Health St. [facility] Comment on above:Performed By: #### LIPA, CMP #### [facility] [address] [address] [address] Roxana GraffCalcium [Mass/Vol]8.8 mg/dLNormal8.4-10.2The [facility] Comment on above:Performed By: #### LIPA, CMP #### [facility] [address] [address] [address] Roxana GraffChloride [Moles/Vol]104 mmol/ANlllwq19-417Whq [facility] Comment on above:Performed By: #### LIPA, CMP #### [facility] [address] [address] [address] Roxana GraffCO2 [Moles/Vol]29.5 mmol/KZmjxvw67.0-30.0The [facility] Comment on above:Performed By: #### LIPA, CMP #### [facility] [address] [address] [address] Roxana GraffCreatinine [Mass/Vol]0.70 mg/dLNormal0.66-1.25The [facility] HospitalComment on above:Performed By: #### LIPA, CMP #### [facility] [address] [address] [address] Roxana RileyGFR-AF SLOVAK>60Normal>=60The [facility] HospitalComment on above:Performed By: #### LIPA, CMP #### [facility] [address] [address] [address] Roxana RileyGFR-NON AF SLOVAK>60Normal>=60The [facility] HospitalComment on above:Performed By: #### LIPA, CMP #### [facility] [address] [address] [address] Roxana GraffGlobulin (S) [Mass/Vol]3.3 g/dLNormalThe [facility] HospitalComment on above:Performed By: #### LIPA, CMP #### [facility] [address] [address] [address] Roxana GraffGlucose [Mass/Vol]136 mg/dLCritically iegh41-093Jke [facility] HospitalComment on above:Performed By: #### LIPA, CMP #### [facility] [address] [address] [address] Roxana GraffPotassium [Moles/Vol]4.1 mmol/LNormal3.4-5.0The [facility] Comment on above:Performed By: #### LIPA, CMP #### [facility] [address] [address] [address] Roxana GraffProtein [Mass/Vol]7.0 g/dLNormal6.1-8.2The [facility] Comment on above:Performed By: #### LIPA, CMP #### [facility] [address] [address] [address] Roxana GraffSodium [Moles/Vol]139 mmol/LIknanj617-269Qxn [facility] Comment on above:Performed By: #### LIPA, CMP #### [facility] [address] [address] [address] Roxana GraffUrea nitrogen [Mass/Vol]9.0 mg/dLNormal9.0-20.0[facility] HospitalComment on above:Performed By: #### LIPA, CMP #### [facility] [address] [address] [address] Roxana GraffUrea nitrogen/Creatinine [Mass ratio]12.9 mg/mgNormalThCorey HospitalComment on above:Performed By: #### LIPA, CMP #### [facility] [address] [address] [address] Roxana Graff Vital Signs Date TimeVital SignValuePerforming LyrtjeoduVzcfcgdj30-72-4830 10:40-0400Body xojsnv245.6 cmFesilvia Lance PILE HEADER Work Phone: [phone] HospitalMxefejyfrv62-41-7283 10:40-0400Body mass index (BMI) [Ratio]42.89 kg/l4Ovmgrjbsilvia Lance PILE HEADER Work Phone: [phone] HospitalWdkatumofn99-91-9420 10:40-0400Body ueikzm962.52 kgFesilvia Lance PILE HEADER Work Phone: [facility] HospitalKrmhlsjuue76-07-4272 10:40-0400Diastolic blood lzlvmmif79 mm[Hg]Huber Lance PILE HEADER Work Phone: [facility] HospitalYntwutlmha73-88-5903 10:40-0400Systolic blood flygeuko318 mm[Hg]Huber Lance PILE HEADER Work Phone: [facility] HospitalWfvxkzdpwu72-03-2699 08:48-0400Body .6 cmAnais Cagle MD Work Phone: [facility] HospitalLjmoafebfz38-87-1058 08:48-0400Body mass index (BMI) [Ratio]44.55 kg/z7BrxmaobAnais Cagle MD Work Phone: [address] [place], [place] [address]Lqckzsvegb34-50-0945 08:48-0400Body fjekki276.19 kgAnais Cagle MD Work Phone: [facility] HospitalUziucdlxvp33-03-5663 08:48-0400Diastolic blood jrtyogrl00 mm[Hg]Anais Cagle MD Work Phone: [facility] HospitalQndudwwifl91-55-4874 08:48-0400Systolic blood uzwwcaxm750 mm[Hg]Anais Cagle MD Work Phone: [facility] HospitalJvzeeiqjwh26-85-9326 10:14-0500Body atyfkg305.64 cmBrett Kuns DO Work Phone: [phone]02-24-2025 10:14-0500 Body mass index (BMI) [Ratio]42.1 kg/r5Ycjuv Kuns DO Work Phone: [phone]02-24-2025 10:14-0500 Body beratvgmofs06.9 [degF]Miguel Kuns DO Work Phone: [phone]02-24-2025 10:14-0500 Body dexdzr521.5 kgBrett Kuns DO Work Phone: [phone] [place], [place] 95[address]802-24-2025 10:14-0500 Diastolic blood mgitjzhq36 mm[Hg]Miguel Kuns DO Work Phone: [phone] [place], [place] 95[address]802-24-2025 10:14-0500 Heart rynp821 /minBrett Kuns DO Work Phone: [phone] [place], [place] 95[address]802-24-2025 10:14-0500 SaO2% (BldA) [Mass fraction]97 %Miguel Kuns DO Work Phone: [phone]02-24-2025 10:14-0500 Systolic blood ozstduge658 mm[Hg]Miguel Kuns DO Work Phone: [phone]12-31-2024 09:08-0500 Body .64 cmBrett Kuns DO Work Phone: [phone] [place], [place] [address]12-31-2024 09:08-0500 Body mass index (BMI) [Ratio]43.5 kg/v7Wnimf Kuns DO Work Phone: [phone]12-31-2024 09:08-0500 Body okhducxocdw58.8 [degF]Miguel Kuns DO Work Phone: [phone]12-31-2024 09:08-0500 Body avguev582.46 kgBrett Kuns DO Work Phone: [phone]12-31-2024 09:08-0500 Diastolic blood mm[Hg]Miguel Kuns DO Work Phone: [phone] [place], [place] [address]12-31-2024 09:08-0500 Heart rate80 /minBrett Kuns DO Work Phone: [phone] [place], [place] [address]12-31-2024 09:08-0500 Respiratory rate16 /minBrett Kuns DO Work Phone: [phone] [place], [place] [address]12-31-2024 09:08-0500 SaO2% (BldA) [Mass fraction]98 %Miguel Kuns DO Work Phone: [phone]12-31-2024 09:08-0500 Systolic blood mm[Hg]Miguel Kuns DO Work Phone: [phone]07-14-2023 08:10-0400 Body jouvdd519.64 cmDO Miguel Kuns Work Phone: [phone]07-14-2023 08:10-0400 Body adpret298.84 kgDO Miguel Kuns Work Phone: [phone]07-14-2023 08:10-0400 Diastolic blood qwaecwjk901 mm[Hg]DO Miguel Kuns Work Phone: [phone] [place], [place] [address]807-14-2023 08:10-0400 Heart rate77 /Emily Buck Work Phone: [facility]07-14-2023 08:10-0400 Respiratory rate16 /minDKaye Buck Work Phone: [facility]07-14-2023 08:10-0400 SaO2% (BldA) [Mass fraction]96 %DO Miguel Buck Work Phone: [facility]07-14-2023 08:10-0400 Systolic blood pthjpeku066 mm[Hg]DO Miguel Buck Work Phone: [facility]06-05-2023 13:40-0400 Body .64 cmDewashington rural health collaborative Anpro21 Other [facility] Other 06-05-2023 13:40-0400Body mass index (BMI) [Ratio] 42.93 kg/i7Yefoeer Anpro21 Other [facility] Other 06-05-2023 13:40-0400Body luqwgt462.66 kgDeMedivance Other [facility] Other 01-27-2023 07:58-0500Diastolic blood elwdxpco08 mm[Hg] Gini Lien Enforcement [facility]01-27-2023 07:58-0500Heart rate82 /minAmanda Lien Enforcement [facility]01-27-2023 07:58-0500Mean blood roheibab807 mm[Hg]Gini Lien Enforcement [facility]01-27-2023 07:58-0500 Respiratory rate14 /minAmanda Lien Enforcement [facility]01-27-2023 07:58-0500 Systolic blood mm[Hg]Gini Lien Enforcement [address] [place], [place] 775[address]11-30-2022 13:10-0500 Diastolic blood tgvcuwzt48 mm[Hg]Gini Galindo [address] [place], [place] [address]11-30-2022 13:10-0500Heart rate75 /minAmanda Lien Enforcement [address] [place], [place] [address]11-30-2022 13:10-0500Mean blood pporqguy81 mm[Hg]Gini Lien Enforcement [address]11-30-2022 13:10-0500 Respiratory rate18 /minAmanda Lien Enforcement [address] [place], [place] [address]11-30-2022 13:10-0500 Systolic blood zhwtaaly317 mm[Hg]Gini Lien Enforcement [address] [place], [place] 49[address]10-21-2022 12:34-0400 Diastolic blood antkfkgr88 mm[Hg]Gini Lien Enforcement [address] [place], [place] [address]10-21-2022 12:34-0400Heart rate74 /minAmanda Lien Enforcement [address]10-21-2022 12:34-0400Mean blood vbudjmjx63 mm[Hg]Gini Lien Enforcement [address]10-21-2022 12:34-0400 Systolic blood owzadvhc872 mm[Hg]Gini Lien Enforcement [address] [place], [place] 49[address]509-19-2022 15:04-0400 Diastolic blood pujzmwcp71 mm[Hg]Gini Lien Enforcement [address]09-19-2022 15:04-0400Heart rate76 /minAmanda Lien Enforcement [address] [place], [place] 49[address]509-19-2022 15:04-0400Mean blood ruyokkox90 mm[Hg]Gini Lien Enforcement [address] [place], [place] 49[address]509-19-2022 15:04-0400 Respiratory rate16 /minAmanda Josie [facility]09-19-2022 15:04-0400 Systolic blood iddbvhnx314 mm[Hg]Gini Galindo [facility]09-01-2022 14:30-0400Body yodsun742.64 cmBrecraig Buck Other [facility] Other 09-01-2022 14:30-0400Body mass index (BMI) [Ratio] 43.74 kg/q5Mrfmo Kuns Other [employer] [facility] Other 09-01-2022 14:30-0400Body blwysp936.93 kgBrecraig Ashfordwilliam Other [facility] Other 09-01-2022 14:30-0400Diastolic blood mm[Hg] Miguel Buck Other [facility] Other 09-01-2022 14:30-0400Respiratory rate16 /minGeniecraig Dejonwilliam Other [facility] [place] Other 09-01-2022 14:30-1152XdS4% (BldA) [Mass fraction]95 % Miguelcraig Buck Other [facility] Other 09-01-2022 14:30-0400Systolic blood vgtudekf660 mm[Hg] Miguelcraig Buck Other [employer] Other 08-29-2022 10:29-0400Diastolic blood lyrwlysi65 mm[Hg] Aubrey Ruiz [facility]08-29-2022 10:29-0400Heart rate70 /minAubrey Ruiz [facility]08-29-2022 10:29-0400Mean blood agvfkiqz658 mm[Hg]Aubrey Ruiz [facility]08-29-2022 10:29-9638YgI0% (BldA) [Mass fraction]97 %Aubrey Ruiz [facility]08-29-2022 10:29-0400 Systolic blood qsmihflh347 mm[Hg]Aubrey Ruiz [facility]08-29-2022 10:29-0400 Respiratory rate16 /Britt Ruiz [facility]08-29-2022 10:24-0400 Diastolic blood dkevgaox602 mm[Hg]Aubrey Ruiz [facility]08-29-2022 10:24-0400Heart rate77 /Britt Ruiz [facility]08-29-2022 10:24-0400 Respiratory rate16 /Britt Ruiz [facility]08-29-2022 10:24-5588GlI7% (BldA) [Mass fraction]97 %Aubrey Ruiz [facility]08-29-2022 10:24-0400 Systolic blood jgfekalx692 mm[Hg]Aubrey Ruiz [address] [place], [place] 7[address]708-29-2022 09:44-0400Body eahrzzmveny98.7 [degF]Aubrey Ruiz [facility]08-29-2022 09:44-0400 Diastolic blood zrvxvtyl64 mm[Hg]Aubrey Ruiz [facility]08-29-2022 09:44-0400Heart rate78 /Britt Ruiz [facility]08-29-2022 09:44-0400Mean blood ginnflfp247 mm[Hg]Aubrey Ruiz [facility]08-29-2022 09:44-0400 Respiratory rate12 /minAubrey Ruiz [facility]08-29-2022 09:44-8879LyP9% (BldA) [Mass fraction]98 %Aubrey Ruiz [facility]08-29-2022 09:44-0400 Systolic blood briokymq935 mm[Hg]Aubrey Ruiz [facility]07-05-2022 10:15-0400Body mpobeo588.64 cmBrecraig [employer] Other [facility] Other 07-05-2022 10:15-0400Body mass index (BMI) [Ratio] 43.74 kg/s9Mkjmo [employer] Other [employer] [place] Other 07-05-2022 10:15-0400Body bwcwod050.93 kgBrecraig Buck Other [employer] [place] Other 07-05-2022 10:15-0400Diastolic blood dnlknsax47 mm[Hg] Miguelcraig Ashfordwilliam Other [facility] [place] Other 07-05-2022 10:15-0400Respiratory rate22 /minMiguel Buck Other [facility] Other 07-05-2022 10:15-5233AcQ7% (BldA) [Mass fraction]95 % Miguel [employer] Other [employer] Other 07-05-2022 10:15-0400Systolic blood exmydorp019 mm[Hg] Miguel Kuns Other [employer] Other 06-01-2022 15:00-0400Body .64 cmDani Elyssas Other [employer] Other 06-01-2022 15:00-0400Body mass index (BMI) [Ratio] 44.38 kg/z3Tnejsb Bernabekens Other [employer] Other 06-01-2022 15:00-0400Body rcurvn949.74 kgDaniel Elyssas Other [employer] Other 05-31-2022 10:00-0400Body lexavl554.64 cmBrett Kuns Other [employer] Other 05-31-2022 10:00-0400Body mass index (BMI) [Ratio] 44.48 kg/c9Putlx Kuns Other [employer] Other 05-31-2022 10:00-0400Body nukslf278.01 kgBrett Kuns Other [employer] Other 05-31-2022 10:00-0400Diastolic blood mm[Hg] Miguel Kuns Other [employer] Other 05-31-2022 10:00-0400Respiratory rate18 /minBrett Kuns Other [employer] Other 05-31-2022 10:00-9002QwF6% (BldA) [Mass fraction]96 % Miguel Dejons Other [employer] Other 05-31-2022 10:00-0400Systolic blood yqtygyxu556 mm[Hg] Miguel Kuns Other [employer] Other 05-12-2022 11:15-0400Body uoyjpt023.64 cmBrett Kuns Other [employer] Other 05-12-2022 11:15-0400Body mass index (BMI) [Ratio]43.9 kg/r4Shlcl Dejons Other [employer] Other 05-12-2022 11:15-0400Body edvsgo926.38 kgBrett Dejons Other [employer] Other 05-12-2022 11:15-0400Diastolic blood mm[Hg] Miguel Kuns Other [employer] Other 05-12-2022 11:15-0400Respiratory rate18 /minBrett Dejons Other [employer] Other 05-12-2022 11:15-7925OpJ5% (BldA) [Mass fraction]94 % Miguel Kuns Other [employer] Other 05-12-2022 11:15-0400Systolic blood ohgnnypa579 mm[Hg] Miguel Kuns Other [employer] Other 04-12-2022 15:30-0400Body lnhzal496.64 cmDavid Hykes Other [employer] Other 04-12-2022 15:30-0400Body mass index (BMI) [Ratio] 43.57 kg/l2Wmdvn Hykes Other [employer] Other 04-12-2022 15:30-0400Body iwjxfv119.47 kgDavid Hykes Other [employer] Other 01-03-2022 16:15-0500Body oskxzy264.64 cmDavid Hykes Other [employer] Other 01-03-2022 16:15-0500Body mass index (BMI) [Ratio] 44.54 kg/a8Ownhc Hykes Other [employer] Other 01-03-2022 16:15-0500Body meknhc363.19 kgDavid Hykes Other [employer] Other 01-03-2022 16:15-0500Diastolic blood botysykc47 mm[Hg] Corinne Dennykes Other [employer] Other 01-03-2022 16:15-0500Systolic blood ryysxaja943 mm[Hg] Corinne Hykes Other [employer] Other 11-02-2021 14:45-0400Body ryraje209.64 cmBrecraig Dejonwilliam Other [employer] Other 11-02-2021 14:45-0400Body mass index (BMI) [Ratio] 46.71 kg/a3Alcrn Kuns Other [employer] Other 11-02-2021 14:45-0400Body cxeflu819.27 kgBrett Kuns Other [employer] Other 11-02-2021 14:45-0400Diastolic blood pkypbgty54 mm[Hg] Miguel Kuns Other [employer] Other 11-02-2021 14:45-0400Respiratory rate18 /minBrett Kuns Other [employer] Other 11-02-2021 14:45-4263RrZ2% (BldA) [Mass fraction]96 % Miguel Kuns Other [facility] Other 11-02-2021 14:45-0400Systolic blood gnvijkrx549 mm[Hg] Miguel Kuns Other [employer] Other Encounters Encounter DateEncounter TypeCare ProviderFacilityStart: 03-20-2025 End: 46-24-1276xrxiakjaazDhrdqjb Vcarola Campbell MDFacility:PM Curtis Start: 02-13-2025 End: 02-04-3708Vzrjqk flowsheetFelicia C Natalio PILE HEADER Work Phone: noMS NEUROLOGYStart: 02-13-2025 End: 10-74-2291Pommhu flowsheetFelicia C Natalio PILE HEADER Work Phone: [facility]oms NEUROLOGYStart: 02-13-2025 End: 74-20-7959hkcycigjzaLHWTBZA C NATALIONot AvailableStart: 02-13-2025 End: 22-16-8434Orwket outpatient visit 25 minutesFelicia C Natalio PILE HEADER Work Phone: [facility] SWS NEURComment on above:Osteoarthritis of spine with radiculopathy, lumbar region (Primary Dx); Meralgia paraesthetica, leftStart: 12-08-2024 End: 16-02-7971MdnvrsLjjqxbjlnf M Graziani PILE HEADER Work Phone: [facility] SWS NEURComment on above:Meralgia paraesthetica, leftStart: 10-24-2024 End: 52-68-0147Tvsygh Kyler Cagle MD Work Phone: [facility] NEUROLOGYStart: 10-24-2024 End: 74-76-6749Lcdemw Kyler Cagle MD Work Phone: [facility] NEUROLOGYStart: 10-24-2024 End: 88-16-6121jryeaurfnhSNLZGAP W BAUERNot AvailableStart: 10-24-2024 End: 75-08-6411Halono outpatient visit 25 minutesBreyash Cagle MD Work Phone: [facility] SWS NEURComment on above:Meralgia paraesthetica, left (Primary Dx)Start: 09-19-2024 End: 47-28-4001emizbnjaezMnhrb Kuns DO Work Phone: [facility] Work Phone: Start: 09-19-2024 End: 56-01-7001Hepkmai encounter procedureBrecraig Buck DO Work Phone: [facility] [place] Work Phone: Start: 08-22-2024 End: 87-60-6155QczeznNscsnbefinAngelica Chaudhry NP Work Phone: [facility] SWS NEURComment on above:Meralgia paraesthetica, leftStart: 08-15-2024 End: 24-10-1564Zftbrev encounter procedureBrett Kuns DO Work Phone: [facility]-Ultrasound [place] Work Phone: Start: 08-15-2024 End: 39-03-0511tueredusjjKinut Kuns DO Work Phone: [facility] Work Phone: Start: 07-26-2024 End: 83-92-2923Rsvmymv encounter procedureBrett Kuns DO Work Phone: [facility] Work Phone: Start: 78-25-1475Exm-patient / Non-visitBrett Kuns DO Work Phone: [facility] Work Phone: Start: 02-06-2023 End: 17-29-4125dacobvjnqrBW Miguelcraig Buck Work Phone: [facility] Work Phone: Start: 02-06-2023 End: 13-18-8409Hzyrmcm encounter procedureDO Miguel Buck Work Phone: [facility]-MRI [place] Work Phone: Start: 12-29-2022 End: 49-64-7844janjpxtcoqYrprach Blades Other [facility] [place] Other start: 39-07-4055Bryzin outpatient visit 25 minutes Rachana Sheffield [facility] NeurosurgeryStart: 08-22-2022 End: 85-04-3864wcspomeqrbPfuqtx SpringerFacility:FTMCStart: 08-22-2022 End: 14-40-4307Syyg ManagementAmanda Galindo [facility] Start: 06-25-2022 End: 17-43-0156gejajwfeafRuslfo SpringerFacility:FTMCStart: 06-25-2022 End: 40-91-2284Aegx ManagementJersey Shore University Medical Centerda Galindo [facility] Start: 05-16-2022 End: 69-26-2238lsdlrafjnvJgfaao SpringerFacility:FTMCStart: 05-16-2022 End: 92-06-1797Sgmw [facility] Start: 04-14-2022 End: 51-35-2738bcxexvhtqhONMLGLW A BLADESFacility:FTMCStart: 04-14-2022 End: 59-20-5645Pzpt [facility] Start: 03-27-2022 End: 75-78-6058lwkawkehoeCuyhz Kuns Other [facility] [place] Other Start: 21-53-5858Nrpekh outpatient visit 25 minutes Miguel BuckFatemeh [facility] [place]Start: 03-24-2022 End: 03-03-1115jmkzosnqigPjuxzf D GoldnerFacility:FTMCStart: 03-24-2022 End: 02-87-5499Yqny ManagementFreeman Orthopaedics & Sports Medicinemoises Ruiz [facility] Start: 03-18-2022 End: 64-26-6474bowrkftlryVisse Kuns Other [facility] [place] Other Start: 67-67-3760Kubpafzzp encounterBrecraig William [facility] [place]Start: 03-11-2022 End: 79-76-1382uqrqucxiyhOswyg Kuns Other [facility] [place] Other Start: 32-77-6338Lrurhai encounter statusMiguel Buck Other [facility] [place] Other Start: 73-40-2604Hbfhidfaq encounterBrett DejonwilliamMARGUERITEG [facility] [place]Start: 02-20-2022 End: 13-39-2465kivwrncsnnLozbo Kuns Other [facility] [place] Other Start: 14-96-4797Yfqumvnio encounterBrett DejonwilliamFPG [facility] [place]Start: 01-28-2022 End: 52-31-2615ucfzcztbpwAkibz Kuns Other [facility] [place] Other Start: 94-84-1534Lpbecy outpatient visit 25 minutes Miguel AshfordwilliamG [facility] [place]Start: 53-82-5031Jfcidjqyp encounterBrett DejonwilliamFPG [facility] [place]Start: 01-15-2022 End: 77-59-8265fejxntfpbxWtdeje Zaky Other [facility] [place] Other Start: 47-28-7915Gbiyqymsz encounterSherif Tia Referral CoordinatorStart: 12-31-2021 End: 15-10-2167vmizzbxibnEscnm Kuns Other [facility] [place] Other Start: 23-79-9792Ditccqnuy encounterBrecraig AshfordwilliamFPG [facility] [place]Start: 12-27-2021 End: 52-77-6151fftfjnmdmkEeelnv Elskens Other [facility] [place] Other start: 34-88-3635Tumatwlqo encounterDaniavila Stroud Referral CoordinatorStart: 12-25-2021 End: 25-74-5780harsfvciaoVzxcti Elskens Other [facility] [place] Other start: 16-42-1845Ecyyej outpatient new 30 minutes Landry Stroud [facility] NeurosurgeryStart: 12-24-2021 End: 45-93-3955cvowmaohyqCkrud Kuns Other [place] Other Start: 41-99-5365Wkjade outpatient visit 25 minutes Miguel DejonsFPG [facility] [place]Start: 12-17-2021 End: 97-58-7440vrcnbahunjMxnwg Kuns Other [facility] [place] Other Start: 21-18-5989Pjfwstffu encounterBrett KunsFPG [facility] [place]Start: 12-12-2021 End: 67-98-1006jvulglvserBdteo Kuns Other [facility] [place] Other Start: 57-01-2084Qbwrllvtj encounterBrett KunsFPG [facility] [place]Start: 12-05-2021 End: 43-37-2480gkwqcgbesuNzfvs Kuns Other [facility] [place] Other Start: 85-27-7690Wkvgjz outpatient visit 25 minutes Miguel DejonsFPG [facility] [place]Start: 32-36-8482Gbmyfxelw encounterBrett KunsFPG [facility] [place]Start: 12-02-2021 End: 89-78-7699dsxnrmzkbqLzmcc Kuns Other [facility] [place] Other Start: 40-44-7726Mdrtdwmcx encounterBrett KunsFPG [facility] [place]Start: 11-30-2021 End: 37-11-2128kkehpnxkotJP EDITH SIEGELFacility:B6Gdrdo: 11-05-2021 End: 14-44-7572ddlkcddpacLawau Hykes Other noNTQ-Data [place] Other Start: 92-30-2444Wvfsam outpatient visit 15 minutes Corinne Tsang GastroenterologyStart: 10-24-2021 End: 31-50-9447crypbxgjeyFTLSS L SERGIO JRFacility:A0Yonot: 08-01-2021 End: 98-92-3414nvdplgsoynPitiu Hykes Other [facility] [place] Other Start: 08-56-0065Kovmtzqlc encounterDadamian HyaguedaFPG Referral CoordinatorStart: 07-29-2021 End: 02-65-5653gvomtfixxsMypgi Hykes Other [facility] [place] Other Start: 59-15-9589Dzayax outpatient new 45 minutesDavihao QuinteroG GastroenterologyStart: 05-28-2021 End: 39-41-0582yxkmevopibFdzxx Kuns Other [facility] [place] Other Start: 08-07-0931Itfcph outpatient visit 25 minutes Miguel GrossG Family Medicine [place]Start: 05-15-2021 End: 90-65-7475pvwygzdvqmBX STEPHEN G REINECKFacility:G6Ujxml: 05-14-2021 End: 50-52-3969ocepmibqukZY STEPHEN G REINECKFacility:W2Wzuor: 67-08-3904Czocqqs encounterBRECRAIG BUCKFacility:1532Start: 72-31-4659Grdiuc wellness visitMiguel Buck Other [facility] [place] Other Procedures DateProcedureProcedure DetailPerforming ClinicianStart: 96-35-8191ST scan of gallbladderBrecraig Buck DO Work Phone: Start: 04-60-2990RT lumbar spine wo conDO Miguel Buck Work Phone: Start: 05-97-1639JL pre/post mri xrayDO Miguel Buck Work Phone: Start: 89-35-4746Xeryzpnjh of nerve root of lumbar spine using fluoroscopic guidanceAmanda Galindo comment on above:L3 50% ReliefStart: 79-25-9284Rmegm, right ureteroscopy with migrated stent removal, right RGP, right ureteroscopic laser ablation, basket extraction ureteral stone, nephroscopy, right JJ ureteral string stent replacement under fluoroscopic guidanceIrenekelliemoises Ruiz start: 62-12-8773Rprlj ESWLIrenechelsea Ruiz cystoscopy with stent insertionIrenemoises Sara right arm surgeryJochelsea Sara tonsilectomyIrenemoises Fiiiling Plan of Treatment DateCare ActivityDetailAuthorStart: 04-21-2025 End: 78-41-3530Mdxptzb encounter oqanmnyfw26/26/2025 11:40 AM EDT Office Visit [facility] [address] [facility] [address] [place] [address] Anais Cagle MD [address] [id number] [facility]Start: 02-13-2025 End: 43-77-3437YQ Lumbar spine WO contrastMR lumbar spine wo contrast Imaging Routine Osteoarthritis of spine with radiculopathy, lumbar region Expected: 02/13/2025 (Approximate), Expires: 02/13/2026[facility] Work Phone: comment on above:Expected: 02/13/2025 (Approximate), Expires: 02/13/2026Start: 01-23-2025 End: 39-73-5169Ceixxgq encounter datandbdp70/30/2025 8:30 AM EDT Office Visit [facility] [address] [facility] [address] [place] [address] Huber Lance, PILE HEADER [address], [address] [phone] [facility] NEUR Immunizations Immunization DateImmunizationNotesCare ProviderFacilityNEGATED: Highlighted row has not occurred!92-76-7167lnjsgbphq, seasonal, injectablePatient ObjectionBrecraig Buck Other [facility] [place] Other Payers DatePayer CategoryPayerPolicy [id number] of Defense ( and others)[id number] () Member Subscriber Plan / Payer (Effective 2022-Present) Name: Petros Sandoval MemberID: [id number] Relation to Subscriber: Self Name: Petros Sandoval Payer ID: [id number] (IC) Group ID: Not on file Type: Not on file Address: [address] [id number] 61-93-4220Fhushrxbap of Defense ( and others)[id number] [id number] 2..1.533167.3.57[id number] 2..1.048748.3.57[id number] 2..1.620144.3.57[id number] 2..1.015317.3.57[id number] 2.0.1.882353.3.57[id number] 2.840.1.319050.3.57[id number] 2.16.840.1.613398.3.57[id number] 2.16.840.1.084256.3.57[id number] 2.16.840.1.132645.3.57[id number] 2.16.840.1.671614.3.57[id number] 2.16.840.1.058604.3.57[id number] 2.16.840.1.960118.3.579.2.03567-82-6758Sdszaopfxz of Defense ( and others)[id number] 2.16.840.1.861210.3.579.2.531 Social History DateTypeDetailFacilityStart: 00-78-0654Qoy Assigned At [facility] [place] Other TobaMercy Health St. Rita's Medical CenterComment on above: deniesTobacco smoking statusNo Smoking Status [facility] Campustart: 94-00-5686Dre Assigned At [facility] Hospitaltart: 03-05-2018 End: 91-83-7469Vvuhgxm smoking status NHISNever smoked tobacco (finding) [facility]art: 12-20-5239SfyXkzbmzw sex unknown (finding)[facility] Centertart: 84-43-4071Ahthrct use and exposureSmokeless tobacco non-userNOMS HealthcareStart: 35-29-6676Szfhqtddq beverage intakeEx-drinker (finding)[facility] HealthcareStart: 64-24-1008Uurnrya of Social functionNOMS HealthcareStart: 76-41-4235Ntghqe identityIdentifies as male gender (finding)[facility] HealthcareStart: 91-20-0156WimIzxt (finding)[facility] Functional Status RzqyGvvvynmqhxFhasxvUqmeidha68-34-2419Cgqxakfegf StatusN/[facility]11-30-2022Functional StatusN/ARNIETri[facility]10-21-2022 Functional StatusN/[facility]09-19-2022Functional StatusN/[facility]08-29-2022Functional StatusN/[facility] Clinical Notes 04-26-2013 to 02-13-2025 Note Date & HgyfEbbnVwtobkbb45-90-7969 History of Present illness Narrative* Huber aLnce NP - 02/13/2025 10:30 AM EDT Images from the original note were not included. CHIEF COMPLAINT REASON FOR VISIT: Follow up HPI: PARESTHESIAS/BACK PAIN -States the medication does help with the numbness and pain. -He states if he misses a dose he does notice when he is without it. -He does have trouble standing for too long or if he is sitting for too long the numbness will return. L > R -He states sitting right now he does feel the numbness in the legs. L > R -back is constant, radiates into BLE L > R -pain is sharp at times -pain interferes with sleep -no trouble with bowel or bladder CURRENT MEDICATIONS: ALLERGIES/DISCONTINUE MEDICATIONS Current Outpatient Medications Medication Instructions albuterol HFA 90 mcg/act inhaler 2 puffs, Inhalation, Every 6 hours PRN Calcium Carb-Cholecalciferol (CALCIUM+D3 PO) Oral, 2 times daily chlorhexidine (Peridex) 0.12 % solution rinse WITH ONE-HALF OUNCE, hold 60 seconds and then let fall out OF mouth EVERY 8 HOURS for 14 days start using the day after procedure diclofenac (VOLTAREN) 75 mg, Oral, 2 times daily, Do not crush, chew, or split. fenofibrate (TRICOR) 145 mg, Oral, Daily HYDROcodone-acetaminophen (Hutto) 5-325 MG tablet 1 tablet, Oral, Every 6 hours PRN lisinopril 5 mg, Oral loratadine (CLARITIN) 10 mg, Oral, Daily RT Multiple Vitamins-Minerals (multivitamin with iron-minerals) liquid Oral, Daily nortriptyline (PAMELOR) 50 mg, Oral, Nightly penicillin v potassium (Veetid) 500 MG tablet TAKE 1 TABLET BY MOUTH 1 HOUR PRIOR TO PROCEDURE thenONE TABLET EVERY 6 HOURS UNTIL GONE pregabalin (Lyrica) 300 MG capsule TAKE 1 CAPSULE BY MOUTH TWICE DAILY (IN THE MORNING and BEFORE bedtime) Allergies Allergen Reactions Erythromycin Other Reaction(s): rash Erythromycin Base Other Reaction(s): Hives There are no discontinued medications. PAST MEDICAL HISTORY: SURGICAL/SOCIAL/FAMILY HISTORY DEPRESSION SCREEN: Past Medical History: Diagnosis Date Asthma (HCC) Past Surgical History: Procedure Laterality Date TONSILLECTOMY Social History Tobacco Use Smoking status: Never Smokeless tobacco: Never Substance Use Topics Alcohol use: Not Currently Drug use: Never Family History Problem Relation Name Age of Onset Heart failure Mother Heart failure Father Depression: Not at risk (06/14/2020) Received from [facility] PHQ-2 Total Score: 0 REVIEW OF SYMPTOMS: Review of Systems Constitutional: Negative for chills, fatigue and fever. HENT: Negative for congestion. Eyes: Negative for photophobia and visual disturbance. Respiratory: Negative for cough and shortness of breath. Cardiovascular: Negative for chest pain and palpitations. Gastrointestinal: Negative for abdominal pain, nausea and vomiting. Genitourinary: Negative for difficulty urinating. Musculoskeletal: Positive for back pain, gait problem and myalgias. Negative for arthralgias and neck pain. Neurological: Positive for weakness and numbness. Negative for tremors and light-headedness. Psychiatric/Behavioral: Positive for sleep disturbance. Negative for agitation and confusion. OBJECTIVE: 10/24/2024 8:48 AM 12/14/2023 1:08 PM 09/14/2023 12:07 PM Vitals BMI 44.55 kg/m2 42.13 kg/m2 43.26 kg/m2 BSA (m2) 2.41 m2 2.34 m2 2.38 m2 Systolic 122 132 132 Diastolic 84 80 84 Height (in) 5' 6 5' 6 Weight (lb) 276 261 268 Visit Report Report Report EXAM: Neurological Exam Mental Status Awake, alert and oriented to person, place and time. Oriented to person, place and time. Recent andremote memory are intact. Speech is normal. Language is fluent with no aphasia. Attention and concentration are normal. Cranial Nerves CN II: Visual allen full to confrontation. CN III, IV, : Extraocular movements intact bilaterally. Normal lids and orbits bilaterally. Pupils equal round and reactive to light bilaterally. CN V: Facial sensation is normal. CN VII: Full and symmetric facial movement. CN VIII: Hearing is normal. CN XII: Tongue midline without atrophy or fasciculations. Motor Normal muscle bulk throughout. Normal muscle tone. Strength is 5/5 throughout all four extremities. Sensory Light touch is normal in upper and lower extremities. Temperature is normal in upper and lower extremities. Vibration abnormality: Decreased in BLE distally. Reflexes Right Left Brachioradialis 2+ 2+ Biceps 2+ 2+ Triceps 2+ 2+ Patellar Tr Tr Right Plantar: downgoing Left Plantar: downgoing Right pathological reflexes: Vish's absent. Ankle clonus absent. Left pathological reflexes: Vish's absent. Ankle clonus absent. Coordination Right: Frflfv-tp-otog normal. Rapid alternating movement normal.Left: Hjhpnj-vd-uwhi normal. Rapid alternating movement normal. Gait Casual gait: Romberg is absent. Unsteady, wide based. PROCEDURE: NONE ASSESSMENT AND PLAN: EVALUATION 02/2023 EMG of BLE - chronic L5 radiculopathy on the right that is mild to moderate in degree and moderate LFC on left that is axon loss in type MRI Lumbar Spine 02/2023 Multilevel DDD with moderate to severe foraminal narrowing, worse at L4/5 and L5/S1 with mass effect on L5 nerve root bilaterally DDD Lumbar Spine w/Radiculopathy/LFC neuropathy Petros Sandoval is a 54 year old male with persistent back pain. He also reports radicular symptoms into his lower extremities and difficulty maneuvering steps due to proximal weakness. On examination his strength seems to be fairly symmetric but he states the strength decreases as he walks or stands for any prolonged period of time. MRI lumbar spine did show significant degenerative changes with nerve root compression at L5 bilaterally. 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 These tests were completed in 2022. I will update his MRI of the lumbar spine to assess for progressive pathology that would need to be addressed from a anca rosurgical standpoint. He may benefit from pain management evaluation for possible epidurals and this order was placed. I will increase nortriptyline to 100 mg at bed to help with numbness, burning, and back pain as well as adding meloxicam to his therapy regimen. He is also on tizanidine. Diagnoses and all orders for this visit: Osteoarthritis of spine with radiculopathy, lumbar region - meloxicam (Mobic) 15 MG tablet; Take 1 tablet (15 mg) by mouth Daily - nortriptyline (Pamelor) 50 MG capsule; Take 2 capsules (100 mg) by mouth at bedtime - tiZANidine (Zanaflex) 4 MG tablet; Take 1 tablet (4 mg) by mouth at bedtime - MR lumbar spine wo contrast; Future - Ambulatory referral to Pain Medicine; Future Meralgia paraesthetica, left - pregabalin (Lyrica) 300 MG capsule; Take 1 capsule (300 mg) by mouth in the morning and 1 capsule(300 mg) before bedtime. PLAN: Increase nortriptyline 100 mg at bed. Continue pregabalin 300 mg BID. OARRS reviewed I will order an MRI of the lumbar spine to assess for structural changes such as degenerative disc disease or facet disease. Referral placed to pain management Add meloxicam 15mg daily. Do not take with other NSAIDS. He states undersatnding Continue tizanidine 4mg at bed for muscle tension I counseled the patient on fall precautions. I discussed the high risk of trauma and debility associated with falls. Patient verbalized understanding. I will see the patient back in 6-8 weeks, or sooner if needed, to make further recommendations documented in this encounterSelect Specialty HospitalPcxhajigku03-34-1373 Telephone encounter Note* Telephone Encounter - Laura Chaudhry NP - 12/13/2024 10:45 AM EDT OARRS reviewed [facility] [id number] Miscellaneous Notes* Telephone Encounter - Laura Chaudhry NP - 12/13/2024 10:45 AM EDT OARRS reviewed documented in this encounterSelect Specialty [id number] History of Present illness Narrative* Anais Cagle MD - 10/24/2024 8:40 AM EDT Images from the original note were not included. CHIEF COMPLAINT REASON FOR VISIT: Follow up HPI: Petros Sandoval is a 54 y.o. male who presents for a follow up. States the medication does help with the numbness and pain. He states if he misses a dose he does notice when he is without it. He doeshave trouble standing for too long or if he is sitting for too long the numbness will return. He states sitting right now he does feel the numbness in the legs. Denies any other concerns. CURRENT MEDICATIONS: ALLERGIES/DISCONTINUE MEDICATIONS Current Outpatient Medications Medication Instructions albuterol HFA 90 mcg/act inhaler 2 puffs, Inhalation, Every 6 hours PRN Calcium Carb-Cholecalciferol (CALCIUM+D3 PO) Oral, 2 times daily chlorhexidine (Peridex) 0.12 % solution rinse WITH ONE-HALF OUNCE, hold 60 seconds and then let fall out OF mouth EVERY 8 HOURS for 14 days start using the day after procedure diclofenac (VOLTAREN) 75 mg, Oral, 2 times daily, Do not crush, chew, or split. fenofibrate (TRICOR) 145 mg, Oral, Daily HYDROcodone-acetaminophen (Hutto) 5-325 MG tablet 1 tablet, Oral, Every 6 hours PRN lisinopril 5 mg, Oral loratadine (CLARITIN) 10 mg, Oral, Daily RT Multiple Vitamins-Minerals (multivitamin with iron-minerals) liquid Oral, Daily nortriptyline (PAMELOR) 25 mg, Oral, Nightly penicillin v potassium (Veetid) 500 MG tablet TAKE 1 TABLET BY MOUTH 1 HOUR PRIOR TO PROCEDURE thenONE TABLET EVERY 6 HOURS UNTIL GONE pregabalin (Lyrica) 300 MG capsule TAKE 1 CAPSULE BY MOUTH TWICE DAILY (IN THE MORNING and BEFORE bedtime) Allergies Allergen Reactions Erythromycin Other Reaction(s): rash Erythromycin Base Other Reaction(s): Hives There are no discontinued medications. PAST MEDICAL HISTORY: SURGICAL/SOCIAL/FAMILY HISTORY DEPRESSION SCREEN: Past Medical History: Diagnosis Date Asthma ([facility] Past Surgical History: Procedure Laterality Date TONSILLECTOMY Social History Tobacco Use Smoking status: Never Smokeless tobacco: Never Substance Use Topics Alcohol use: Not Currently Drug use: Never Family History Problem Relation Name Age of Onset Heart failure Mother Heart failure Father Depression: Not at risk (06/14/2020) Received from [facility], [facility] PHQ-2 Total Score: 0 REVIEW OF SYMPTOMS: Review of Systems Constitutional: Negative for chills, diaphoresis, fatigue and fever. HENT: Negative for ear pain, tinnitus and trouble swallowing. Eyes: Negative for photophobia and visual disturbance. Respiratory: Negative for cough and shortness of breath. Cardiovascular: Negative for palpitations and leg swelling. Gastrointestinal: Negative for abdominal pain and nausea. Genitourinary: Negative for difficulty urinating and urgency. Musculoskeletal: Negative for arthralgias, back pain, myalgias, neck pain and neck stiffness. Neurological: Negative for tremors, weakness, light-headedness and numbness. Psychiatric/Behavioral: Negative for agitation, confusion and suicidal ideas. OBJECTIVE: 12/14/2023 1:08 PM 09/14/2023 12:07 PM 06/15/2023 10:03 AM Vitals BMI 42.13 kg/m2 43.26 kg/m2 43.26 kg/m2 BSA (m2) 2.34 m2 2.38 m2 2.38 m2 Systolic 132 132 Diastolic 80 84 Height (in) 5' 6 Weight (lb) 261 268 268 Visit Report Report EXAM: Neurological Exam Mental Status Awake, alert and oriented to person, place and time. Oriented to person, place and time. Recent andremote memory are intact. Speech is normal. Language is fluent with no aphasia. Attention and concentration are normal. Cranial Nerves CN II: Visual acuity is normal. Visual allen full to confrontation. CN III, IV, : Extraocular movements intact bilaterally. Normal lids and orbits bilaterally. Pupils equal round and reactive to light bilaterally. CN V: Facial sensation is normal. CN VII: Full and symmetric facial movement. CN VIII: Hearing is normal. CN XII: Tongue midline without atrophy or fasciculations. Motor Normal muscle bulk throughout. Normal muscle tone. Right Left Wrist flexion 5 5 Wrist extension 5 5 Right Left Deltoid 5 5 Biceps 5 5 Triceps 5 5 Wrist flexor 5 5 Wrist extensor 5 5 Glutei 5 5 Iliopsoas 5 5 Quadriceps 5 5 Gastrocnemius 5 5 Anterior tibialis 5 5 Posterior tibialis 5 5 Sensory Light touch is normal in upper and lower extremities. Pinprick is normal in upper and lower extremities. Vibration is normal in upper and lower extremities. Reflexes Right Left Brachioradialis 2+ 2+ Biceps 2+ 2+ Patellar 2+ 2+ Achilles 2+ 2+ Right Plantar: downgoing Left Plantar: downgoing Right pathological reflexes: Vish's absent. Ankle clonus absent. Left pathological reflexes: Vish's absent. Ankle clonus absent. Coordination Abgevn-by-ezgp, rapid alternating movements and yjlk-pz-lmjo normal bilaterally without dysmetria. Gait Normal casual, toe, heel and tandem gait. Romberg is absent. PROCEDURE: NONE ASSESSMENT AND PLAN: Petros Sandoval is a 54 year old male with sensory disturbance in the distal lower extremities manifested predominantly as numbness and paresthesia in his bilateral feet which have been progressive over the past 8 months, Possible etiologies would include a generalized process affecting large fibers such as peripheral neuropathy, lumbar radiculopathy, or lumbosacral plexopathy. I cannot exclude a small fiber neuropathy contributing to predominantly sensory symptoms in the lower extremities, I cannot exclude it medical condition or metabolic process contributing to peripheral nerve dysfunction including polyneuropathy. I will increase nortriptyline to 25 mg at bed to help with numbness, burning, and back pain and see him back in 3 months. Diagnoses and all orders for this visit: Meralgia paraesthetica, left Increase nortriptyline 50 mg at bed. Continue pregabalin 300 mg BID. Obtained OARRS report and personally reviewed and reviewed with the patient I counseled the patient on the possible side effects and interactions of medications. Follow up 3 months. This note was scribed by JAC Greer acting under the direction of Anais Cagle MD. The content has been reviewed and confirmed for accuracy by Anais Cagle MD documented in this encounterSelect Specialty [id number] Telephone encounter Note* Telephone Encounter - Laura Chaudhry NP - 08/22/2024 4:14 PM EST OARRS reviewed. [facility] [id number] Miscellaneous Notes* Telephone Encounter - Laura Chaudhry NP - 08/22/2024 4:14 PM EST OARRS reviewed. documented in this encounterSelect Specialty [id number] Radiology [facility] [place] [address] [place] [address] Ultrasound Report Signed Patient: Petros Sandoval MR#: [id number] : 1970 Acct:[id number] Age/Sex: 54 / M ADM Date: 5 Loc: Room: Type: [facility] Attending Dr: Miguel Buck DO Ordering Provider: Miguel Buck DO Date of Service: 08/15/24 US/US gall bladder: R10.9 - Unspecified abdominal pain Copies to: Miguel Buck DO~ LIMITED ABDOMINAL ULTRASOUND: CLINICAL HISTORY: Right upper quadrant pain for 2 weeks. COMPARISON: Gallbladder ultrasound 10/13/2015 TECHNIQUE: Grayscale and color Doppler images of the right upper quadrant organswere obtained. FINDINGS: Pancreas: Visualized portions appear unremarkable. Liver: Fatty infiltration. Gallbladder: Normal. CBD: 3.9 mm US/US gall bladder IMPRESSION: FATTY INFILTRATION LIVER. NO ACUTE FINDINGS.. Impression dictated by: Terry Guerra Jr., D.O.08/15/2024 9:15 AM Dictation Location: [place] [address] Tech: Blanca Gutierrez Transcribed By: HEVER 08/15/24914 Dictated By: Terry Guerra Jr, DO 08/15/2414 Signed By: 08/15/2415 [facility]12-31-2024 Evaluation note* Diagnosis Onset Date Resolution Status Admit Date Right flank pain acuteDecember 2023 8:37amRight-sided chest wall painacuteDecember 2023 8:37am [facility] Work Phone: 1(639) 315-539512-31-2024 Evaluation note* Diagnosis Onset Date Resolution Status Admit Date Right flank pain acuteDecember 2023 8:37amRight-sided chest wall painacuteDecember 2023 8:37amInfluenza AacuteFebruary 2024 9:15am [facility] Work Phone: [phone]) 124-158206-05-2023 Evaluation note* Encounter Date Diagnosis Assessment Notes Treatment Notes Treatment Clinical Notes Dec, Pain in right leg (ICD-10 - M79. 604) Dec,ain in left leg (ICD-10 - M79.605) [facility] Other 01-27-2023 Evaluation + Plan noteExtracted from:Title: Pain Managment Follow upAuthor:Gini Galindo PA-CDate:08/22/22 Patient: PETROS SANDOVAL Age: 52 years Sex: Male : 1970 Associated Diagnoses: None Author: Gini Galindo PA-C Subjective Chief complaint 08/22/2022 7:58 EST Lower center back pain and left hip pain . Patient is a 52-year-old male. He presents today for follow-up after increasing gabapentin. 900 mg 3 times a day. This did some what improve his symptoms. He decided to forego the injection until after the first of the year. He is here today to once again discussed this. He has lower back pain with left buttock pain and left radiating leg pain. He rates it a 4/10. Patient previously underwent left-sided L3 transforaminal epidural steroid injection. This was done in February and it did give him approximately 50 to 60% relief. He has previously seen Dr. Ocampo but he really wants to try and avoid surgery. He would really like to discuss the injection once again now that we have passed the first of the year. He feels that things are better than when he initially started coming but he is still hoping for some relief. Health Status Allergies: Allergic Reactions (Selected) Severity Not Documented Erythromycin- Rash., Allergies (1) ActiveReaction erythromycinrash Current medications: (Selected) Prescriptions Prescribed gabapentin 300 mg Cap: 900 mg = 3 cap(s), Oral, TID, X 90 day(s), # 810 cap(s), Refills(s) 0, Pharmacy: [id number], 165, cm, 08/22/22 8:07:00 EST, Height/Length Dosing, 122.5, kg, 06/25/22 13:15:00 EST, Weight Dosing Documented Medications Documented Tylenol 500 mg Tab: 1,000 mg = 2 tab(s), Oral, q6hr, PRN as needed for pain, Refills(s) 0 Ventolin HFA 90 mcg/inh Aerosol: 1 puff(s), Inhalation, Daily for wheezing, Refill(s) 0 gabapentin 300 mg Cap: TAKE 3 CAPSULES BY MOUTH THREE TIMES DAILY FOR 30 DAYS ibuprofen: Refills(s) 0 lisinopril 5 mg Tab: 5 mg = 1 tab(s), Oral, Daily, Refills(s) 0 loratadine 10 mg oral capsule: 10 mg = 1 cap(s), Oral, Daily, PRN Allergy symptoms, Refills(s) 0 Problem list: All Problems Asthma / SNOMED CT 092644483 / Confirmed Apnea, sleep / SNOMED CT 037716658 / Confirmed hasn't wore cpap in a couple of years Allergic rhinitis, seasonal / SNOMED CT 690707877 / Confirmed Hypertension / SNOMED CT 7108461111 / Confirmed High cholesterol / SNOMED CT 21278036 / Confirmed Hearing deficit / SNOMED CT 90895054 / Confirmed Osteoarthritis / SNOMED CT 9980685045 / Confirmed Canceled: Asthma / SNOMED CT 141413595 Objective Vital Signs 08/22/2022 7:58 EST Peripheral Pulse Rate 82 bpm Respiratory Rate 14 br/min Systolic Blood Pressure 140 mmHg Diastolic Blood Pressure 90 mmHg Mean Arterial Pressure, Cuff 107 mmHg General: Alert and oriented, No acute distress. Overweight Eye: Normal conjunctiva. HENT: Normocephalic, Normal hearing. Cardiovascular: No edema. Musculoskeletal Normal range of motion. Normal strength. Other than left hip flexion, ADF, and EHL 4+ to 5 -/5 Integumentary: Warm, Dry, [place]. Neurologic: Alert, Oriented. Psychiatric: Cooperative, Appropriate mood & affect. Results Review Lumbar MRI report once again reviewed. Patient does have L3-4 degenerative disc disease with disc bulge and left-sided foraminal narrowing. L4-5 disc bulge with moderate bilateral foraminal stenosis.L5-S1 degenerative disc disease with severe left-sided foraminal stenosis. Impression and Plan Patient is a 52-year-old male with a past medical history significant for lumbar stenosis, lumbar neuritis and lumbar spondylosis. At his last appointment we increase his gabapentin. He is using 900 mg 3 times a day and this does help him. He tolerates it well. He is requesting a refill. OARRS was reviewed and a refill will be sent. In regards to the previous injection that was ordered he had a few questions that we discussed. I answered his questions. We once again discussed pursuing a left-sided L5-S1 transforaminal epidural steroid injection for both diagnostic and therapeutic purposes. Procedure was discussed. Risks and benefits were discussed. Patient is agreeable. He will follow-up 2 weeks after the injection for reevaluation. Call the clinic sooner if necessary.Addendum by Gini Galindo PA-C on August 22, 2022 8:37 ESTODI score: 30[facility] Evaluation + Plan noteExtracted from:Title:Pain Managment Follow upAuthor:Gini Galindo PA-CDate:06/25/22 Patient: PETROS SANDOVAL Age: 52 years Sex: Male : 1970 Associated Diagnoses: None Author: Gini Galindo PA-C Subjective Chief complaint 06/25/2022 13:10 EST low back pain . Patient is a 52-year-old male. He presents today for follow-up after starting gabapentin. 600 mg 3 times a day. He has noticed maybe some improvement of the pain but he still has the left leg numbness. He also has some lower back and intermittent left leg shooting that he rates a 3/10 but it can get worse depending on his activities. Patient previously underwent left-sided L3 transforaminal epidural steroid injection. This was done in February and it did give him approximately 50 to 60% relief but he still had a lot of numbness in the left thigh. He has previously seen Dr. Blades. He wants to try and avoid surgery. At this time, he wonders what his other options are. He states that he would still like to try to get some pain relief. He states that things are better than when he started coming but they are stillnot where he would like to be. Health Status Allergies: Allergic Reactions (Selected) Severity Not Documented Erythromycin- Rash., Allergies (1) ActiveReaction erythromycinrash Current medications: (Selected) Prescriptions Prescribed acetaminophen-hydrocodone 325 mg-5 mg oral tablet: 1 tab(s), Oral, q4hr Pain, 30 tab(s), Refill(s) 0 Documented Medications Documented Tylenol 500 mg Tab: 1,000 mg = 2 tab(s), Oral, q6hr, PRN as needed for pain, Refills(s) 0 Ventolin HFA 90 mcg/inh Aerosol: 1 puff(s), Inhalation, Daily for wheezing, Refill(s) 0 ibuprofen: Refills(s) 0 lisinopril 5 mg Tab: 5 mg = 1 tab(s), Oral, Daily, Refills(s) 0 loratadine 10 mg oral capsule: 10 mg = 1 cap(s), Oral, Daily, PRN Allergy symptoms, Refills(s) 0 Problem list: All Problems Asthma / SNOMED CT 774763670 / Confirmed Apnea, sleep / SNOMED CT 016293076 / Confirmed hasn't wore cpap in a couple of years Allergic rhinitis, seasonal / SNOMED CT 321555085 / Confirmed Hypertension / SNOMED CT 4116069425 / Confirmed High cholesterol / SNOMED CT 08750734 / Confirmed Hearing deficit / SNOMED CT 03062960 / Confirmed Osteoarthritis / SNOMED CT 1923627924 / Confirmed Canceled: Asthma / SNOMED CT 974358493 Objective Vital Signs 06/25/2022 13:10 EST Peripheral Pulse Rate 75 bpm Respiratory Rate 18 br/min Systolic Blood Pressure 126 mmHg Diastolic Blood Pressure 86 mmHg Mean Arterial Pressure, Cuff 99 mmHg General: Alert and oriented, No acute distress. Overweight Eye: Normal conjunctiva. HENT: Normocephalic, Normal hearing. Cardiovascular: No edema. Musculoskeletal Normal range of motion. Normal strength. Other than left hip flexion, ADF, and EHL 4+ to 5 -/5 Integumentary: Warm, Dry, [place]. Neurologic: Alert, Oriented. Psychiatric: Cooperative, Appropriate mood & affect. Results Review Lumbar MRI report once again reviewed. Patient does have L3-4 degenerative disc disease with disc bulge and left-sided foraminal narrowing. L4-5 disc bulge with moderate bilateral foraminal stenosis.L5-S1 degenerative disc disease with severe left-sided foraminal stenosis. Impression and Plan Patient is a 52-year-old male with a past medical history significant for lumbar stenosis, lumbar neuritis and lumbar spondylosis. He underwent previous left- sided L3 transforaminal epidural steroid injection which gave him some improvement. Unfortunate, he still has a lot of pain and he feels thatthis pain affects his ambulatory status. This affects his quality of life and activities of daily. Affects his ability to do things out the day and he is very bothered by this. We once again reviewedthe MRI report. Based on his pain pattern and the MRI findings I recommended to patient a left-sided L5-S1 transforaminal epidural steroid injection for both diagnostic and therapeutic purposes. Proce dure was discussed. Risk and benefits were discussed. Patient is agreeable. He will follow-up 2 weeks after the injection for reevaluation. Call the clinic sooner if necessary.Addendum by Gini Galindo PA-C on June 25, 2022 13:26 ESTWe are also going to have him increase his gabapentin to 900 mg 3 times a day. How to do so was discussed. OARRS was reviewed. Refill sent to the pharmacy.[facility] Evaluation + Plan noteExtracted from:Title:Pain management follow-upAuthor:Gini Galindo PA-CDate:05/16/22 Impression and Plan Patient is a 51-year-old male with a past medical history significant for lumbar stenosis, lumbar neuritis, and lumbar spondylosis. Previous injection did give him some relief of certain areas of thepain but he still has a lot of numbness in the left thigh and this is what is most bothersome to him. It affects his ability to do things throughout the day and affects his ability to get comfortable. He has thought a lot about his different options and he would like to discuss the gabapentin that was offered to him at his last nurse consult. We once again discussed the medication. We discussed how to take the medication. We discussed potential side effects of the medication. OARRS was reviewed. A gabapentin prescription will be sent to the pharmacy. At this time he is going to trial this medication and follow-up in 1 month. Call the clinic sooner if necessary. Future Appointments Appointment Date:06/25/2022 01:00:00 PM Scheduled Provider:Gini Galindo PA-C Location:.[facility] [place] Appointment Type:Pain Management - Follow Up (FT) [facility]09-01-2022 Evaluation note* Encounter Date Diagnosis Assessment Notes Treatment Notes Treatment Clinical Notes Mar, Left lumbar radiculopathy (ICD-1 0 - M54.16) Patient has established care with pain management, Dr. Ruiz, since the last visit. He has had the intial spinal injections. Patient states he has gotten minimal relief from the injection so far. Injection was done 2 days ago. Patient is in agreement to returning to work on established return to work date as previously documented on April 01, 2022 and I am willing to have patient attempt to go back. He needs to continue with current treatment regimen with Dr. Ruiz, pain management. Patient has voiced understanding and will follow through with his next pain management appt in 2 weeks. Mar,egenerative lumbar disc (ICD-10 - M51.36) Patient is under the care of pain management at this time and has been encouraged to follow throughwith said care. Mar,Lumbar nerve root impingement (ICD-10 - M54.16) I again reviewed MRI with patient that did demonstrate a mass like effect of the nerve root and this is why we did the initial referral to Neurosurgeon, Dr. Beyer. After that consultation patient did seek second opinion with Dr. Ocampo, Neurosurgeon. Dr. Ocampo referred to pain medicine. Unfortunately patients disability has been denied in spite of the appeal we did for patient. I have written a note for patient to be released back to work on 04/01/2022. Appeal letter from [employer] scanned into EMR for future reference. Mar,bsent reflex of lower extremity (ICD-10 - R29.818) Patient is under the care of pain management and encouraged to continue with treatments [employer] Other 08-29-2022 Note [id number]:127[facility] 03-11-2022 Evaluation note* Encounter Date Diagnosis Assessment Notes Treatment Notes Treatment Clinical Notes Feb, Right lumbar radiculopathy (ICD- 10 - M54.16) Feb,Left lumbar radiculopathy (ICD-10 - M54.16) Feb,Low back pain (ICD-10 - M54.5) Feb,egenerative lumbar disc (ICD-10 - M51.36) [employer] Other 07-05-2022 Evaluation note* Encounter Date Diagnosis Assessment Notes Treatment Notes Treatment Clinical Notes Jan, Left lumbar radiculopathy (ICD-1 0 - M54.16) Patient did consult with Dr. Ocampo for a second opinion who did not see any significant findings on the imaging he had done indicating a cause for his numbness in his left leg therefore he is scheduled 02/07 for an MRI of his left hip. He will follow up after that and discuss possibly epidural injections to see if that is beneficial. Patient does have notable weakness in his left leg upon examination. I do believe the patient would benefit from remaining off work tentatively until 03/31 to return 04/01/22 as he cannot safely perform his work duties. Encouraged the patient to follow with Dr. Ocampo as scheduled. Jan,Hyperlipidemia (ICD-10 - E78.5) Jan,creening for prostate cancer (ICD-10 - Z12.5) [employer] Other 06-07-2022 Evaluation note* Encounter Date Diagnosis Assessment Notes Treatment Notes Treatment Clinical Notes Dec, Left lumbar radiculopathy (ICD-1 0 - M54.16) [employer] Other 06-01-2022 Evaluation note* Encounter Date Diagnosis Assessment Notes Treatment Notes Treatment Clinical Notes Dec, Degenerative lumbar disc (ICD-10 - M51.36) I think continued conservative management is most appropriate. I would like the patient to be started in physical therapy,, a referral will be sent. He could be considered for pain management and a referral will be sent . [employer] Other 05-31-2022 Evaluation note* Encounter Date Diagnosis Assessment Notes Treatment Notes Treatment Clinical Notes November, Left lumbar radiculopathy (ICD-1 0 - M54.16) Lumbar MRI results reviewed with the patient noting L5-S1 moderate to severe neuroforaminal stenosis along with disc protrusion and degenerative changes. The patient is scheduled with the neurosurgeon tomorrow 12/25/21 upon my referral . I encourage he follow with them as scheduled for additonal treatment recommendations. I am in agreement with providing a refill of the above medication that he states takes the edge off and allows him to rest. I am in agreement with providing a refill, discussion was had these are highly addictive and to use sparingly. I am in agreement with extending his medical release and will keep him off work through 01/27/22, return 01/28/22. [employer] Other 05-24-2022 Evaluation note* Encounter Date Diagnosis Assessment Notes Treatment Notes Treatment Clinical Notes November, Lumbar nerve root impingement (I CD-10 - M54.16) November,Left lumbar radiculopathy (ICD-10 - M54.16) [employer] Other 05-12-2022 Evaluation note* Encounter Date Diagnosis Assessment Notes Treatment Notes Treatment Clinical Notes November, Left lumbar radiculopathy (ICD-1 0 - M54.16) [employer] Other 05-12-2022 Evaluation note* Encounter Date Diagnosis Assessment Notes Treatment Notes Treatment Clinical Notes November, Left lumbar radiculopathy (ICD-1 0 - M54.16) Upon physical examination patient does have significant leg weakness, left leg raise is positive for pain. He has absent dtr of left knee, intractable back and lower extremity pain. I am concerened that physical therapy could potentially worsen or injury him further, therefore will need to see whatMRI reveals before determining further treatment plan. Increased dose of prednisone and refill of percocet was provided today. I do not recommend he work until MRI is obtained, note provided. November,Intractable back pain (ICD-10 - M54.9) MRI ordered. November,aresthesia of left leg (ICD-10 - R20.2) MRI ordered. November,bsent reflex of lower extremity (ICD-10 - R29.818) Absent reflexes of left lower extremity. MRI will need to be obtained as soon as possible [employer] Other 04-12-2022 Evaluation note* Encounter Date Diagnosis Assessment Notes Treatment Notes Treatment Clinical Notes Oct, RUQ abdominal pain (ICD-10 - R10 .11) CONTINUE TO WATCH SYMPTOMS FOR NOW START TRIAL OF BACLOFEN 10 MG BID PT TO CALL IF NOT IMPROVED MAY CONSIDER EGD [employer] Other 01-03-2022 Evaluation note* Encounter Date Diagnosis Assessment Notes Treatment Notes Treatment Clinical Notes Jul, RUQ abdominal pain (ICD-10 - R10 .11) HIDA W/ CCK [employer] Other 11-02-2021 Evaluation note* Encounter Date Diagnosis Assessment Notes Treatment Notes Treatment Clinical Notes May, Right upper quadrant pain (ICD-1 0 - R10.11) Upon review of [facility] report from 05/14/2021, Unremarkable CT of Abdomen, Abdominal US, and blood work obtained while in the ER other than showing Fatty Liver. He continues to have pain and nausea in the RUQ region of his abdomen. I did suggest a referral to Gastro as I do have concerns about his gallbladder despite the imaging results. Patient is in agreement with the referral. Referral initiated. We will continue to monitor. May,loating (ICD-10 - R14.0) Patient reports feeling full almost all the time. Referral initiated to gastro. May,Nausea (ICD-10 - R11.0) Patient continues to feel constantly nauseous over the past month. I did prescribe the above medication to help alleviate the nausea and recommended and initiated a referral to Gastro for further evaluation. May,creening for prostate cancer (ICD-10 - Z12.5) Blood work ordered. May,Hyperlipidemia (ICD-10 - E78.5) Blood work ordered. [employer] Other 10-01-2013 History general Narrative - Reported* Type Description Date Medical History 04/2013- stress test Medical History02/2018 stress testMedical HistoryAnxiety over Working Conditions Medical Nnmbqew27/2020 stress testMedical HistoryasthmaSurgical HistoryRight arm Surgical HistoryT & AHospitalization HistorySee AboveHospitalization History chest pain05/2020 [facility] [employer] Other Evaluation + Plan note Future Appointments Appointment Date:04/14/2022 03:00:00 PM Scheduled Provider:Gini Galindo PA-C Location:[facility] [place] Appointment Type:[facility] Management [facility] Future Appointments Appointment Date:05/16/2022 12:30:00 PM Scheduled Provider:Gini Galindo PA-C Location:[facility] [place] Appointment Type:Pain Management - Follow Up ([facility]) [facility] RehabilitationEvaluation noteNo InformationNortLehigh Valley Hospital [facility] [employer] [facility] Other Evaluation noteNo assessment information available [facility] Work Phone: Evaluation note* Diagnosis Meralgia paraesthetica, left documented in this encounter [facility] HealthcareEvaluation [facility]* Diagnosis Meralgia paraesthetica, left- Primary documented in this encounter [facility] HealthcareEvaluation note* Diagnosis Meralgia paraesthetica, left documented in this encounter [facility] HealthcareEvaluation note* Diagnosis Osteoarthritis of spine with radiculopathy, lumbar region- Primary Meralgia paraesthetica, left documented [facility] this encounter [facility] Narrative No data available for this section [facility] instructions No data available for this section [facility] Rehabilitation[facility] note No data available for this section [facility] RehabilitationReason for referral (narrative)* Reason *FU 03/19 Patient is needing evaluation and treatment for low back pain. Has been evaluated by neurosurgeon, Dr. Ocampo. Patient does have insurance. Please call patient with appt date and time. Thanks.. Diagnosis 1 Right lumbar radicul opathy (M54.16) Diagnosis 2 Left lumbar radiculo juana (M54.16) Diagnosis 3 Low back pain (M54.5 ) Diagnosis 4 Degenerative lumbar disc (M51.36) Referral Organization [facility] [place] Referring Provider First Name Miguel Referring Provider Last Name Heber Referring Provider Specialty Family Prac carmen Referred Organization Unknown Facility Referred Provider Aubrey Ruiz Referred Provider Specialty [facility] Referral Priority Routine General Notes Shannon Brown 07:07:23 AM >Received today. Per [employer] Website: Auth Not Required. This patient is not enrolled in [facility] so no referral is required for the requested services. Shannon Brown 03/12/2022 07:11:21 AM >[facility] [facility] 's office request us to fill out form and fax referral to them and they will review the referral and call patient. Referral was fax [employer] Other reason for visit NarrativeReferral update - pain managementNoNTQ-Data [employer] Other reason for visit NarrativePT HERE AT REQUEST OF DR MIGUEL BUCK FOR EVALUATION AND TREATMENT OF RIGHT UPPER QUADRANT PAIN / NAUSEA, REFERRAL NOTE [email or web address] Other Summary Purpose Family History No Family History Records Found Relationship Condition Age at Onset Recorded Date/T khushi father Family history of colon cancer Unknown Malignant neoplasmUnknownDeceasedUnknown Advance Directives No Advanced Directives Records Found Advance Directive Response Recorded Date/ Time Advance Directives No December 14 8 8:31am Advance Directive Response Recorded Date/ Time Advance Directives No December 14 8 7:31am Reason for Referral Reason consult and treat RU Q abdominal pain nausea Diagnosis 1 Right upper quadrant pain (R10.11) Referral Organization [facility] [place] Referring Provider First Name Miguel Referring Provider Last Name Heber Referring Provider Specialty Family Prac carmen Referred Organization [facility] Gastroenterolo gy Referred Provider Hemant Fofana Referred Address [address] [address] ,[place], [place],[address] Referred Provider Specialty Gastroentero logy Referral Priority Routine Reason *Waiting for appt consult and treat Diagnosis 1 Lumbar nerve root im pingement (M54.16) Diagnosis 2 Absent reflex of low er extremity (R29.818) Diagnosis 3 Paresthesia of left leg (R20.2) Referral Organization [facility] [place] Referring Provider First Name Miguel Referring Provider Last Name Heber Referring Provider Specialty Family Prac carmen Referred Organization [facility] Referred Address [address] [address] [address] ,[place], [place],[address] Referred Provider Specialty Neurosurgery Referral Priority Routine General Notes Lizz Good 02:38:22 PM >referral with fax attachments sent Reason Evaluate and Treat w ith Possible Left L4 Nerve Root Injection Diagnosis 1 Degenerative lumbar disc (M51.36) Referral Organization [facility] urosurgery Referring Provider First Name Landry Referring Provider Last Name Kayleen Referring Provider Specialty Neurosurger y Referred Organization [facility] Pain Managemen t Referred Provider Phil Schultz Referred Address [address] [address] ,[place], [place],[address] Referred Provider Specialty Pain Medicin e Referral Priority Routine Reason Evaluate and Treat Diagnosis 1 Degenerative lumbar disc (M51.36) Referral Organization [facility] urosurger Referring Provider First Name Landry Referring Provider Last Name Kayleen Referring Provider Specialty Neurosurger y Referred Organization [facility] Referred Address ,[place], [place],[address] Referred Provider Specialty Physical The rapist Referral Priority Routine Reason consult and treat se cond opinion for lumbar pain Diagnosis 1 Left lumbar radiculo juana (M54.16) Referral Organization [facility] [place] Referring Provider First Name Miguel Referring Provider Last Name Heber Referring Provider Specialty Family Prac carmen Referred Provider Rachana Ocampo Referred Provider Specialty Neurological Surgery Referral Priority Routine Chief Complaint and Reason for Visit Chief Complaint m54.50 Chief Complaint Admit Date er f/u (Curtis) discomfort ribcage are a July 26, 2024 8:37am R10.9 August 15, 2024 7 :14am Reason for Visit Admit Date Right flank pain July 26, 2024 8:37am Right-sided chest wall pain June 8:37am Reason for Visit Admit Date Right flank pain July 26, 2024 8:37am Right-sided chest wall pain June 8:37am Influenza A September 19, 2024 9:15am Additional Source Comments (unrecognized sect ion and content) No Status Records FoundNo Status Records FoundNo Status Records FoundNo Status Records FoundNo Status Records FoundNo Status Records FoundNo Status Records Found INFORMATION SOURCE (unrecogn ized section and content) DATE CREATED AUTHOR 03/15/2018 [facility] DATE CREATED AUTHOR AUTHOR'S ORGANIZ ATION 12/04/2021 [facility] DATE CREATED AUTHOR AUTHOR'S ORGANIZ ATION 01/24/2022 [facility] DATE CREATED AUTHOR AUTHOR'S ORGANIZ ATION 09/03/2022 [facility] DATE CREATED AUTHOR AUTHOR'S ORGANIZ ATION 08/16/2024 [facility] DATE CREATED AUTHOR AUTHOR'S ORGANIZ ATION 02/14/2025 [facility] DATE CREATED AUTHOR AUTHOR'S ORGANIZ ATION 03/25/2025 [facility] REASON FOR VISIT (unrecogniz ed section and content) ReasonCommentsMed Refill Care Team (unrecognized sect ion and content) Team Status: Active Member Role Status Dates Miguel Buck DO Primary Care Provider Active Team Status: Active Member Role Status Dates Miguel Buck DO Primary Care Provider Active Sta rt: July 22, 2024 Jo Ann Boyd ProviderActiveStart: July 22, 2024 Team Status: Inactive Member Role Status Dates Miguel Buck DO Primary Care Provide r, Attending Provider Active Start: July 26, 2024 End: July 26, 2024 Team Status: Inactive Member Role Status Dates Miguel Buck DO Primary Care Provide r, Attending Provider Active Start: August 15, 2024 End: August 15, 2024 Team Status: Inactive Member Role Status Dates Miguel Buck DO Primary Care Provider Active Rajan Moreno ProviderActiveTeam MemberRelationshipSpecialty Start DateEnd Date Miguel Buck DO PCP - GeneralFamily Medicine02/27/23 Team Status: Inactive Member Role Status Dates Miguel Buck DO Primary Care Provider Active Sta rt: September 19, 2024 End: September 19Kade Khalil ProviderActiveStart: September 19, 2024 End: September 19, 2024Team MemberRelationshipSpecialtyStart DateEnd Date Miguel Buck, DO [facility]02/27/23Te MemberRelationshipSpecialtyStart DateEnd Date Miguel Buck DO PCP - [facility]02/27/23Te MemberRelationshipSpecialtyStart DateEnd Date Miguel Buck DO [facility]02/27/23Te MemberRelationshipSpecialtyStart DateEnd Date Miguel Buck DO [facility]02/27/23 Goals (unrecognized section and content) Goals may be documented in a n alternate section FOR RECORDS PERTAINING TO PATIENTS WHO ARE OR HAVE BEEN ENROLLED IN A CHEMICAL DEPENDENCY/SUBSTANCEABUSE PROGRAM, SOME INFORMATION MAY BE OMITTED. This clinical summary was aggregated from multiple sources. Caution should be exercised in using it in the provision of clinical care. This summary normalizes information from multiple sources, and as a consequence, information in this document may materially change the coding, format and clinical context of patient data. In addition, data may be omitted in some cases. CLINICAL DECISIONS SHOULD BE BASED ON THE PRIMARY CLINICAL RECORDS. [employer] [facility]. provides no warranty or guarantee of the accuracy or completeness of information in this document.
[2025-07-03 11:26] LABS: Hematocrit 42.6 % (42.0-54.0); Hemoglobin 14.4 g/dL (14.0-18.0); Immature Granulocytes Abs Auto 0.02 10^3/uL (0.00-0.03); Immature Granulocytes Pct Auto 0.3 % (0.0-0.5); Lymphocytes Absolute Auto 1.6 10^3/uL (1.2-3.8); Mean Corpuscular HGB Conc 33.8 g/dL (29.9-35.2); Mean Corpuscular Hemoglobin 30.7 pg (25.9-34.0); Mean Corpuscular Volume 90.8 fL (80.0-94.0); Platelet Count 276 10^3/uL (150-450); Red Blood Count 4.69 10^6/uL (4.70-6.10); White Blood Count 7.9 10^3/uL (4.0-11.0)
[2025-07-03 11:53] LABS: Alanine Aminotransferase 22 U/L (16-63); Albumin Globulin Ratio 1.2; Albumin Level 3.9 g/dL (3.4-5.0); Alkaline Phosphatase 55 U/L (46-116); Anion Gap 8.5; Aspartate Amino Transferase 14 U/L (15-37); Blood Urea Nitrogen 16.0 mg/dL (7.0-18.0); Calcium 9.3 mg/dL (8.5-10.1); Carbon Dioxide 31.4 mmol/L (21.0-32.0); Chloride 105 mmol/L (98-107); Estimated GFR (African America >60 (>=60 mL/min/1.73m^2); Estimated GFR (Non-African Ame >60 (>=60 mL/min/1.73m^2); Globulin 3.3 g/dL; Glucose 117 mg/dL (74-106); Potassium 3.9 mmol/L (3.5-5.1); Sodium 141 mmol/L (136-145); Total Protein 7.2 g/dL (6.4-8.2)
[2025-07-03 12:00] VITALS: BP 131/81
--- NOTE | 2025-07-03 12:35 | ED.GENADUL1 ---
HPI HPI - General Adult General Chief complaint: Wound/Laceration Stated complaint: WOUND CHECK Time Seen by Provider: 07/03/25 10:52 Source: patient Mode of arrival: walk-in Limitations: no limitations History of Present Illness HPI narrative: The patient is coming to the ER after he had a lesion developed in his left middle finger almost a week ago, he was evaluated by urgent care and started on Bactrim and he finished it almost 2 days ago, but he still noticed redness on his finger, he also have pain there is no discharge or drainage and there is no fever chills or any other concerns The patient is not diabetic and he denies any history of any insect bite or any work with any new material or any chemical that could have caused the lesion Related Data Home Medications ?Medication ?Instructions ?Recorded ?Confirmed fenofibrate 150 mg capsule 150 mg PO DAILY 07/21/24 07/21/24 lisinopril 5 mg tablet 5 mg PO DAILY 07/21/24 07/21/24 loratadine 10 mg tablet (Claritin) 10 mg PO DAILY 07/21/24 07/21/24 nortriptyline 25 mg capsule 25 mg PO DAILY 07/21/24 07/21/24 pregabalin 300 mg capsule 300 mg PO Q12H 07/21/24 07/21/24 Previous Rx's ?Medication ?Instructions ?Recorded diclofenac sodium 75 mg 75 mg PO BID PRN pain #14 tabs 07/21/24 tablet,delayed release amoxicillin 500 mg tablet 500 mg PO Q8H #30 tabs 07/03/25 bacitracin 500 unit/gram topical 1 applic topical DAILY #14 grams 07/03/25 ointment doxycycline hyclate 100 mg tablet 100 mg PO BID 10 days #20 tabs 07/03/25 Allergies Allergy/AdvReac Type Severity Reaction Status Date / Time azithromycin AdvReac Hives Verified 07/21/24 09:40 Review of Systems ROS Status of ROS 10 or more systems reviewed and unremarkable except as noted in history and below [facility] Medical History (Updated 07/03/25 @ 12:40 by Laureen Barker MD) Kidney stone ?N20.0 - Calculus of kidney (ICD-10) Rheumatoid arthritis ?M06.9 - Rheumatoid arthritis, unspecified (ICD-10) Sleep apnea ?G47.30 - Sleep apnea, unspecified (ICD-10) Asthma ?J45.909 - Unspecified asthma, uncomplicated (ICD-10) Surgical History (Updated 03/21/25 @ 10:13 by Sonali Gandhi RN) Hx of tonsillectomy ?Z90.89 - Acquired absence of other organs (ICD-10) Social History Little interest or pleasure in doing things: not at all Feeling down, depressed, or hopeless: not at all Exam Narrative Exam Narrative: Nurses notes and vital signs reviewed and patient is not hypoxic. General: Well-appearing and in no apparent distress. Head: Normocephalic, atraumatic. Left hand exam: There is a ulcer that is healing but still showing some tissue in the posterior aspect of the left proximal phalanx of the middle finger, mostly in the dorsum, the patient have a full range of movement preserved there is still tenderness there is no drainage or any pus drained but the patient have some tissue, the ulcer is almost 2 x 3 cm, no exposure of the underlying structures Neurological: A&O x4. No cranial nerve dysfunction observed. No truncal ataxia. Moves all extremities. Sensation intact. Psychiatric: Cooperative and interactive. Normal mood and affect. Constitutional Vital Signs, click to edit/add: Last Vital Signs Temp 97.9 F 07/03/25 10:42 Pulse 76 07/03/25 10:42 Resp 18 07/03/25 10:42 BP 131/81 07/03/25 12:00 Pulse Ox 97 07/03/25 10:42 O2 Del Method Room Air 07/03/25 10:42 Course Vital Signs Vital signs: Vital Signs Temperature 97.9 F 07/03/25 10:42 Pulse Rate 76 07/03/25 10:42 Respiratory Rate 18 07/03/25 10:42 Blood Pressure 154/97 H 07/03/25 10:42 Pulse Oximetry 97 07/03/25 10:42 Oxygen Delivery Method Room Air 07/03/25 10:42 Temperature 97.9 F 07/03/25 10:42 Pulse Rate 76 07/03/25 10:42 Respiratory Rate 18 07/03/25 10:42 Blood Pressure 131/81 07/03/25 12:00 Pulse Oximetry 97 07/03/25 10:42 Oxygen Delivery Method Room Air 07/03/25 10:42 Medical Decision Making MDM Narrative Medical decision making narrative: I did obtain a blood workup including CBC chemistry and ESR and CRP and CRP was mildly elevated otherwise the CBC did not show any leukocytosis and ESR was not elevated And I did discuss the case with Dr. Streeter from the orthopedic service and showed him the images of the ulcer, I did express my concern that it might need some debridement, as per Dr. Streeter's recommendation was to follow-up with Dr. Singh from the orthopedic service as outpatient and also changing the antibiotic I did change antibiotic to doxycycline and Keflex Will collect bacitracin for wound care and the patient was instructed about coming back to the ER in case of any redness hotness or any new symptoms The patient to follow-up with the primary care within 2 to 3 days and to come back to the ER in case of any worsening of the current symptoms or any new symptoms or concerns Lab Data Labs: Lab Results 07/03/25 Range/Units 11:19 WBC 7.9 (4.0-11.0) 10^3/uL RBC 4.69 L (4.70-6.10) 10^6/uL Hgb 14.4 (14.0-18.0) g/dL Hct 42.6 (42.0-54.0) % MCV 90.8 (80.0-94.0) fL MCH 30.7 (25.9-34.0) pg MCHC 33.8 (29.9-35.2) g/dL RDW 11.8 (11.0-15.0) % Plt Count 276 (150-450) 10^3/uL MPV 10.3 (9.5-13.5) fL Neut % (Auto) 69.6 (43.0-75.0) % Lymph % (Auto) 20.3 L (20.5-60.0) % Grainger % (Auto) 6.7 (1.7-12.0) % Eos % (Auto) 2.7 (0.9-7.0) % Baso % (Auto) 0.4 (0.2-2.0) % Neut # (Auto) 5.5 (1.4-6.5) 10^3/uL Lymph # (Auto) 1.6 (1.2-3.8) 10^3/uL Grainger # (Auto) 0.5 (0.3-0.8) 10^3/uL Eos # (Auto) 0.2 (0.0-0.7) 10^3/uL Baso # (Auto) 0.0 (0.0-0.1) 10^3/uL Abs Immat Gran (auto) 0.02 (0.00-0.03) 10^3/uL Imm/Tot Granulo (auto) 0.3 (0.0-0.5) % ESR 12 (<=20) mm/hr Sodium 141 (136-145) mmol/L Potassium 3.9 (3.5-5.1) mmol/L Chloride 105 (98-107) mmol/L Carbon Dioxide 31.4 (21.0-32.0) mmol/L Anion Gap 8.5 BUN 16.0 (7.0-18.0) mg/dL Creatinine 0.81 (0.70-1.30) mg/dL Est GFR ( Amer) >60 (>=60 mL/min/1.73m^2) Est GFR (Non-Af Amer) >60 (>=60 mL/min/1.73m^2) BUN/Creatinine Ratio 19.8 Glucose 117 H (74-106) mg/dL Calcium 9.3 (8.5-10.1) mg/dL Total Bilirubin 0.3 (0.2-1.0) mg/dL AST 14 L (15-37) U/L ALT 22 (16-63) U/L Alkaline Phosphatase 55 (46-116) U/L C-Reactive Protein 0.68 H (<=0.50) mg/dL Total Protein 7.2 (6.4-8.2) g/dL Albumin 3.9 (3.4-5.0) g/dL Globulin 3.3 g/dL Albumin/Globulin Ratio 1.2 Discharge Plan Discharge Chief Complaint: Wound/Laceration Clinical Impression: Cellulitis of finger Patient Disposition: Home, Self-Care Time of Disposition Decision: 12:38 Condition: Good Prescriptions / Home Meds: New amoxicillin 500 mg tablet 500 mg PO Q8H Qty: 30 0RF doxycycline hyclate 100 mg tablet 100 mg PO BID 10 Days Qty: 20 0RF bacitracin 500 unit/gram ointment 1 applic topical DAILY Qty: 14 0RF No Action nortriptyline 25 mg capsule 25 mg PO DAILY pregabalin 300 mg capsule 300 mg PO Q12H fenofibrate 150 mg capsule 150 mg PO DAILY lisinopril 5 mg tablet 5 mg PO DAILY loratadine [Claritin] 10 mg tablet 10 mg PO DAILY diclofenac sodium 75 mg tablet,delayed release (DR/EC) 75 mg PO BID PRN (Reason: pain) Qty: 14 0RF Print Language: Greenlandic Instructions: Cellulitis (ED) Referrals: MIGUEL BUCK [Primary Care Provider, Family Practice] - 1 week MAHNAZ SINGH [Physician, Orthopedics] - As soon as possible Referral Note: please call to make appointment as soon as you leave the ED Discharge Date/Time: 07/03/25 13:29
[2025-07-03] MEDS: AMPICILLIN SODIUM/SULBACTAM NA 3 GM in 0.9 % SODIUM CHLORIDE 100 ML IV (12:48)
[2025-07-03] MEDS: BACITRACIN 0.9 GM PACKET 1 PACKET TOPICAL (12:48)
== END 2025-07-03 13:29 | disposition home or self-care (01) ==
PROVIDERS: Emergency Provider Emergency Medicine; PCP Family Medicine
DX: L03.012 Cellulitis of left finger (principal)
CPT/HCPCS: 36415; 73140; 80053; 85025; 85652; 86140; 96365; 99284; J0295